=== PATIENT | female | born 1960 | race Caucasian/White ===

== ENCOUNTER 2017-12-30 12:44 | Inpatient (IN) | payer BC ==
[2017-12-30] MEDS ORDERED: NA CHLORIDE 0.9% 1,000 ML ONE (14:22)
[2017-12-30] MEDS ORDERED: ONDANSETRON 4 MG/2 ML VIAL ONE (14:22)
[2017-12-30 14:36] LABS: Absolute Lymphocytes (CBC) 1.1 K/uL (0.7-4.9); Absolute Monocytes 1.3 K/uL (0.1-1.3); Absolute Neutrophil 21.3 K/uL (1.8-8.0); Basophils % 0.1 % (0-1.3); Lymphocytes % 4.8 % (15.3-44.8); MCH 31.4 pg (27.0-35.0); MCV 91.6 fL (80-100); MPV 7.4 fL (7.6-11.3); Monocytes % 5.4 % (3.3-12.3); RBC Red Blood Cell Count 4.15 M/uL (3.86-4.86)
[2017-12-30 14:37] LABS: Potassium 3.3 mEq/L (3.6-5.0)
[2017-12-30 14:43] LABS: Bilirubin Direct 0.2 mg/dL (0-0.2); Bilirubin Total 0.6 mg/dL (0.3-1.2); Protein, Total 7.2 g/dL (6.0-8.3)
[2017-12-30 15:00] LABS: Urine Bacteria >50 /HPF (<20); Urine Culture Reflex Order REFLEXED; Urine RBC 20-50 /HPF (NONE SEEN)
--- NOTE | 2017-12-30 15:32 | RAD REPORT ---
EXAM DESCRIPTION: CTAbdomen Pelvis W Contrast - 12/30/2017 3:10 pm CLINICAL HISTORY: Abdominal pain. COMPARISON: None. TECHNIQUE: Biphasic CT imaging of the abdomen and pelvis was performed with 100 ml non-ionic IV cont rast. All CT scans are performed using dose optimization technique as appropriate and may include automated exposure control or mA/KV adjustment according to patient size. FINDINGS: The lung bases are clear. The liver demonstrates no aggressive mass or biliary dilatation. Small peripherally located benign-ap pearing cysts is noted measuring 8 mm. The spleen, pancreas adrenal glands are normal. Subtle edema i s seen in the inferior posterior aspect of the right kidney suspicious for pyelonephritis. Mild uroep ithelial thickening is seen on the right. Fat stranding is seen surrounding the right ureter and to a lesser extent the left ureter. There is mild thickening of the urinary bladder wall seen. No bowel obstruction, free air, free fluid or abscess. The appendix is normal. No evidence of signi ficant lymphadenopathy. Lumbosacral degenerative changes are present. IMPRESSION: Findings are suspicious for an ascending urinary tract infection with early pyelonephrit is on the right possible.
[2017-12-30 15:39] LABS: Urine Blood 2+ (NEG); Urine Glucose NEGATIVE (NEG); Urine Protein 3+ (NEG); Urine Specific Gravity 1.025 (1.005-1.030)
--- NOTE | 2017-12-30 15:43 | EDPHYS ---
Physician Documentation [facility] Name: Merlyn Fry Age: 57 yrs Sex: Female : 1960 Arrival Date: 12/30/2017 Time: 12:47 Bed 30 Private MD: ED Physician Osito Killian HPI: 12/30 14:35 This 57 yrs old Female presents to ER via Ambulatory with complaints of Low kb Back Pain, Breathing Difficulty. 14:35 The patient complains of pain in the left flank and right flank. The pain radiates to kb the abdomen. Onset: The symptoms/episode began/occurred yesterday. Modifying factors: The symptoms are alleviated by nothing. the symptoms are aggravated by palpation/percussion. Associated signs and symptoms: Pertinent positives: headache, nausea, Pertinent negatives: diarrhea, dizziness, dysuria, fever, urinary frequency, hematuria, pain radiating to the lower extremities, vomiting. Severity of pain: At its worst the pain was moderate in the emergency department the pain is unchanged. The patient has not experienced similar symptoms in the past. The patient has not recently seen a physician. Pt states she started having headache and nausea yesterday, today had lower back pain that radiated to abd. Pain is worse when she takes a deep breath. No chest pain. Historical: - Allergies: 13:12 No Known Allergies; lk1 - PMHx: 13:12 CVA; Hypertension; Myocardial infarction; lk1 - PSHx: 13:12 Heart stents; lk1 - Immunization history:: Adult Immunizations up to date. - Social history:: Smoking status: Patient uses tobacco products, denies chronic smoking, but will smoke occasionally. ROS: 14:34 Constitutional: Negative for fever, chills, and weight loss, ENT: Negative for injury, kb pain, and discharge, Neck: Negative for injury, pain, and swelling, Cardiovascular: Negative for chest pain, palpitations, and edema, MS/Extremity: Negative for injury and deformity, Skin: Negative for injury, rash, and discoloration, Neuro: Negative for headache, weakness, numbness, tingling, and seizure. 14:34 Respiratory: Positive for shortness of breath, due to flank pain. 14:34 Abdomen/GI: Positive for abdominal pain, nausea, Negative for vomiting, diarrhea, constipation, abdominal cramps, abdominal distension, anorexia. 14:34 Back: Positive for flank pain, bilaterally. Exam: 14:33 Constitutional: This is a well developed, well nourished patient who is awake, alert, kb and in no acute distress. Head/Face: Normocephalic, atraumatic. ENT: Nares patent. No nasal discharge, no septal abnormalities noted. Tympanic membranes are normal and external auditory canals are clear. Oropharynx with no redness, swelling, or masses, exudates, or evidence of obstruction, uvula midline. Mucous membranes moist. Neck: Trachea midline, no thyromegaly or masses palpated, and no cervical lymphadenopathy. Supple, full range of motion without nuchal rigidity, or vertebral point tenderness. No Meningismus. Chest/axilla: Normal chest wall appearance and motion. Nontender with no deformity. No lesions are appreciated. Cardiovascular: Regular rate and rhythm with a normal S1 and S2. No gallops, murmurs, or rubs. Normal PMI, no JVD. No pulse deficits. Respiratory: Lungs have equal breath sounds bilaterally, clear to auscultation and percussion. No rales, rhonchi or wheezes noted. No increased work of breathing, no retractions or nasal flaring. Skin: Warm, dry with normal turgor. Normal color with no rashes, no lesions, and no evidence of cellulitis. MS/ Extremity: Pulses equal, no cyanosis. Neurovascular intact. Full, normal range of motion. Neuro: Awake and alert, GCS 15, oriented to person, place, time, and situation. Cranial nerves II-XII grossly intact. Motor strength 5/5 in all extremities. Sensory grossly intact. Cerebellar exam normal. Normal gait. 14:33 Abdomen/GI: Inspection: abdomen appears normal, Bowel sounds: normal, in all quadrants, Palpation: mild abdominal tenderness, in all quadrants. 14:33 Back: CVA tenderness, that is moderate, is noted bilaterally. Vital Signs: 13:12 BP 110 / 76; Pulse 100; Resp 16; Temp 97.0(TE); Pulse Ox 96% on R/A; Weight 62.14 kg lk1 (R); Height 4 ft. 11 in. (149.86 cm) (R); Pain 8/10; 16:35 BP 162 / 128; Pulse 109; Resp 18; Temp 98.7; Pulse Ox 100% on R/A; tl3 16:46 BP 169 / 101; Pulse 118; Resp 22; Pulse Ox 98% ; tl3 13:12 Body Mass Index 27.67 (62.14 kg, 149.86 cm) lk1 MDM: 13:15 Patient medically screened. kb 14:33 Data reviewed: vital signs, nurses notes. Data interpreted: Pulse oximetry: on room air kb is 96 %. Interpretation: normal. 15:39 Counseling: I had a detailed discussion with the patient and/or guardian regarding: the kb historical points, exam findings, and any diagnostic results supporting the discharge/admit diagnosis, lab results, radiology results, the need for further work-up and treatment in the hospital. 12/30 13:31 Order name: Amylase, Serum kb 12/30 13:31 Order name: Basic Metabolic Panel kb 12/30 13:31 Order name: CBC with Diff; Complete Time: 14:39 kb 12/30 13:31 Order name: Hepatic Function kb 12/30 13:31 Order name: Lipase kb 12/30 13:32 Order name: Amylase Level; Complete Time: 14:53 EDMS 12/30 13:32 Order name: Basic Metabolic Panel; Complete Time: 14:53 EDMS 12/30 13:32 Order name: Liver (Hepatic) Function; Complete Time: 14:53 EDMS 12/30 13:32 Order name: Lipase; Complete Time: 14:53 EDMS 12/30 14:22 Order name: Urine Microscopic Only; Complete Time: 15:02 kb 12/30 14:34 Order name: Urine Dipstick--Ancillary (enter results); Complete Time: 15:39 bd 12/30 14:34 Order name: Urine --Ancillary (enter results); Complete Time: 15:39 bd 12/30 15:03 Order name: Urine Culture 12/30 15:04 Order name: Urine Culture EDNC 12/30 13:31 Order name: IV Saline Lock; Complete Time: 14:33 kb 12/30 13:31 Order name: Labs collected and sent; Complete Time: 14:15 kb 12/30 13:31 Order name: Urine Dipstick-Ancillary (obtain specimen); Complete Time: 14:33 kb 12/30 14:38 Order name: CT Abd/Pelvis - W/Contrast; Complete Time: 15:36 kb Administered Medications: 14:32 Drug: Zofran 4 mg Route: IVP; Infused Over: 2 mins; Site: right forearm; tl3 14:53 Follow up: Response: Nausea is decreased tl3 14:33 Drug: NS 0.9% 1000 ml Route: IV; Rate: 1000 ml; Site: right forearm; Delivery: Primary tl3 tubing; 17:47 Follow up: IV Status: Completed infusion; IV Intake: 1000ml tl3 16:35 Drug: Rocephin - (cefTRIAXone) 1 grams Route: IVPB; Infused Over: 5 mins; Site: right tl3 forearm; 17:47 Follow up: Response: No adverse reaction tl3 16:35 Drug: Potassium Chloride 20 mEq Route: PO; tl3 17:46 Follow up: Response: No adverse reaction tl3 Disposition: 18:38 Co-signature as Attending Physician, Osito Killian MD. rn Disposition: 12/30/17 15:42 Hospitalization ordered by Carolynn Steven for Observation. Preliminary diagnosis are Urinary tract infection, site not specified, Acute tubulo-interstitial nephritis, Hypokalemia, Volume depletion, unspecified, Elevated white blood cell count. - Bed requested for Telemetry/MedSurg (observation). - Status is Observation. tl3 - Condition is Stable. - Problem is new. - Symptoms are unchanged. UTI on Admission? Yes Signatures: Dispatcher [employer] EDMS Arina Nava FNP-C FNP-Jillian Tejada Roman, MD MD rn Kluge, Leah, DURAN RN lk1 Ruth Wallace, RN RN tl3 Corrections: (The following items were deleted from the chart) 15:42 15:42 Hospitalization Ordered by Carolynn Steven MD for Observation. Preliminary kb diagnosis is Urinary tract infection, site not specified; Acute tubulo-interstitial nephritis; Hypokalemia; Volume depletion, unspecified. Bed requested for Telemetry/MedSurg (observation). Status is Observation. Condition is Stable. Problem is new. Symptoms are unchanged. UTI on Admission? Yes. kb 16:14 15:42 12/30/2017 15:42 Hospitalization Ordered by Carolynn Steven MD for Observation. bd Preliminary diagnosis is Urinary tract infection, site not specified; Acute tubulo-interstitial nephritis; Hypokalemia; Volume depletion, unspecified; Elevated white blood cell count. Bed requested for Telemetry/MedSurg (observation). Status is Observation. Condition is Stable. Problem is new. Symptoms are unchanged. UTI on Admission? Yes. kb 17:48 16:14 12/30/2017 15:42 Hospitalization Ordered by Carolynn Steven MD for Observation. tl3 Preliminary diagnosis is Urinary tract infection, site not specified; Acute tubulo-interstitial nephritis; Hypokalemia; Volume depletion, unspecified; Elevated white blood cell count. Bed requested for Telemetry/MedSurg (observation). Status is Observation. Condition is Stable. Problem is new. Symptoms are unchanged. UTI on Admission? Yes. bd
--- NOTE | 2017-12-30 15:43 | ER ---
Nurse's Notes [facility] Name: Merlyn Fry Age: 57 yrs Sex: Female : 1960 Arrival Date: 12/30/2017 Time: 12:47 Bed 30 Private MD: Diagnosis: Urinary tract infection, site not specified;Acute tubulo-interstitial nephritis;Hypokalemia;Volume depletion, unspecified;Elevated white blood cell count Presentation: 12/30 13:10 Presenting complaint: Patient states: "I have been having a pain in my sides and lower lk1 back and when I take a breath its worse.". Transition of care: patient was not received from another setting of care. Onset of symptoms was December 26, 2017. Risk Assessment: Do you want to hurt yourself or someone else? Patient reports no desire to harm self or others. Initial Sepsis Screen: Does the patient meet any 2 criteria? No. Patient's initial sepsis screen is negative. Does the patient have a suspected source of infection? No. Patient's initial sepsis screen is negative. Care prior to arrival: None. 13:10 Method Of Arrival: Ambulatory lk1 13:10 Acuity: MAGEN 3 lk1 Triage Assessment: 13:12 General: Appears uncomfortable, Behavior is calm, cooperative, appropriate for age. lk1 Pain: Complains of pain in low back area Pain does not radiate. Pain currently is 8 out of 10 on a pain scale. Respiratory: Reports pain with movement pain with respiration Airway is patent Respiratory effort is even, unlabored, Respiratory pattern is regular, symmetrical, Onset: The symptoms/episode began/occurred 3 days ago, the patient has mild shortness of breath. Historical: - Allergies: 13:12 No Known Allergies; lk1 - PMHx: 13:12 CVA; Hypertension; Myocardial infarction; lk1 - PSHx: 13:12 Heart stents; lk1 - Immunization history:: Adult Immunizations up to date. - Social history:: Smoking status: Patient uses tobacco products, denies chronic smoking, but will smoke occasionally. Screenin:15 Abuse screen: Denies threats or abuse. Nutritional screening: No deficits noted. tl3 Tuberculosis screening: No symptoms or risk factors identified. Fall Risk None identified. Assessment: 14:15 General: Appears uncomfortable, slender, well groomed, well developed, well nourished, tl3 Behavior is calm, cooperative, appropriate for age. Pain: Complains of pain in abdomen and right flank and left flank and back and low back area. Cardiovascular: Heart tones S1 S2 present Rhythm is regular. Respiratory: Airway is patent Trachea midline Respiratory effort is even, unlabored, Respiratory pattern is regular, symmetrical, Breath sounds are clear bilaterally. GI: No signs and/or symptoms were reported involving the gastrointestinal system. : Urine is cloudy. EENT: No signs and/or symptoms were reported regarding the EENT system. Derm: No signs and/or symptoms reported regarding the dermatologic system. Musculoskeletal: No signs and/or symptoms reported regarding the musculoskeletal system. 16:35 Reassessment: Patient and/or family updated on plan of care and expected duration. Pain tl3 level reassessed. Patient is alert, oriented x 3, equal unlabored respirations, skin warm/dry/pink. pt quivering, extra blanket provided, IV infusing without difficulty. 16:46 Reassessment: Patient and/or family updated on plan of care and expected duration. Pain tl3 level reassessed. Patient is alert, oriented x 3, equal unlabored respirations, skin warm/dry/pink. pt c/o feeling like she can not breathe, pulse ox 100% on room air, BBS slightly coarse, no wheezing, good sounds throughout all ortiz. Vital Signs: 13:12 BP 110 / 76; Pulse 100; Resp 16; Temp 97.0(TE); Pulse Ox 96% on R/A; Weight 62.14 kg lk1 (R); Height 4 ft. 11 in. (149.86 cm) (R); Pain 8/10; 16:35 BP 162 / 128; Pulse 109; Resp 18; Temp 98.7; Pulse Ox 100% on R/A; tl3 16:46 BP 169 / 101; Pulse 118; Resp 22; Pulse Ox 98% ; tl3 13:12 Body Mass Index 27.67 (62.14 kg, 149.86 cm) lk1 ED Course: 12:47 Patient arrived in ED. rg4 13:11 Triage completed. lk1 13:14 Arm band placed on left wrist. lk1 13:15 Arina Nava FNP-C is [facility]. kb 13:15 Osito Killian MD is Attending Physician. kb 13:58 Ruth Wallace, RN is Primary Nurse. tl3 14:15 No apparent distress. Resting quietly. tl3 14:15 Patient has correct armband on for positive identification. Bed in low position. Call tl3 light in reach. Side rails up X 1. Adult w/ patient. Pulse ox on. NIBP on. Door closed. Lights dimmed. Warm blanket given. 14:15 No provider procedures requiring assistance completed. Inserted saline lock: 20 gauge tl3 in right antecubital area, using aseptic technique. Blood collected. 15:[address] via wheelchair. nj 15:10 CT Abd/Pelvis - W/Contrast In Process Unspecified. EDMS 15:42 Carolynn Steven MD is Hospitalizing Provider. kb 17:27 Inserted saline lock: 22 gauge in left antecubital area, using aseptic technique. dh3 17:46 Patient admitted, IV remains in place. tl3 18:48 Amylase, Serum Sent. tl3 18:48 Basic Metabolic Panel Sent. tl3 18:48 Hepatic Function Sent. tl3 18:48 Lipase Sent. tl3 Administered Medications: 14:32 Drug: Zofran 4 mg Route: IVP; Infused Over: 2 mins; Site: right forearm; tl3 14:53 Follow up: Response: Nausea is decreased tl3 14:33 Drug: NS 0.9% 1000 ml Route: IV; Rate: 1000 ml; Site: right forearm; Delivery: Primary tl3 tubing; 17:47 Follow up: IV Status: Completed infusion; IV Intake: 1000ml tl3 16:35 Drug: Rocephin - (cefTRIAXone) 1 grams Route: IVPB; Infused Over: 5 mins; Site: right tl3 forearm; 17:47 Follow up: Response: No adverse reaction tl3 16:35 Drug: Potassium Chloride 20 mEq Route: PO; tl3 17:46 Follow up: Response: No adverse reaction tl3 Intake: 17:47 IV: 1000ml; Total: 1000ml. tl3 Outcome: 15:42 Decision to Hospitalize by Provider. kb 17:45 Admitted to Tele accompanied by tech, via wheelchair, with chart, Report called to tl3 DURAN Roche 17:45 Condition: stable 17:45 Instructed on the need for admit, Demonstrated understanding of instructions. 17:48 Patient left the ED. tl3 Signatures: Dispatcher [employer] EDMS Arina Nava, DASHBOARD DEVELOPER-C DASHBOARD DEVELOPER-CkDarlene Munoz, RN RN lk1 Ruth Davis4 Hector Yeung Deanna 3 Ruth Wallace, RN RN tl3
[2017-12-30] MEDS ORDERED: POTASSIUM CL SA 10 MEQ TAB PO ONE (16:21)
[2017-12-30] MEDS ORDERED: CEFTRIAXONE/SWI 1gm 1 GM/10 ML SYR ONE (16:22)
--- NOTE | 2017-12-30 16:29 | P.HP ---
Certification for Inpatient Patient admitted to: Observation With expected LOS: <2 Midnights Practitioner: I am a practitioner with admitting privileges, knowledge of patient current condition, hospital course, and medical plan of care. Services: Services provided to patient in accordance with Admission requirements found in Title 42 Section 412.3 of the Code of Federal Regulations Patient History Date of Service: 12/30/17 Primary Care Provider: None Reason for admission: BL flank pain History of Present Illness: This is a 49-year-old female with significant past medical history of hypertension, CVA, IA, who presented to the ED complaining of having bilateral flank pain. Patient states that she has been having pain in her side and lower back when she takes a deep breath in. Patient's symptoms started about 3-4 days ago and has not gotten better since then. Patient stated that she has had subjective fevers and chills noted as well. No other complaints to offer at this time. Patient stated that she has not had similar episodes in the past and this is the 1st time that this has happened. Patient complains of having some urinary in frequency and burning during urination as well. In the ER patient had an abdominal CT done which was consistent with pyelonephritis along with severe ascending urinary tract infection. Patient was thus admitted for further care for pyelonephritis. Allergies No Known Allergies Allergy (Unverified 06/22/17 03:06) - Past Medical/Surgical History Diabetic: No -: Hypertension -: Coronary artery disease -: CVA -: depression -: anxiety -: hypercholesterolemia -: Cardiac catheterization with stent placement -: hysterectomy - Family History Father -: Heart disease, Hypertension, Diabetes, Cancer Sister -: Lung disease - Social History Alcohol use: No CD- Drugs: No Caffeine use: Yes Review of Systems General: As per HPI Physical Examination - Physical Exam General: Alert, In no apparent distress HEENT: Atraumatic Neck: Supple Respiratory: Clear to auscultation bilaterally, Normal air movement Cardiovascular: Regular rate/rhythm, Normal S1 S2 Gastrointestinal: Normal bowel sounds, Tenderness (BL Flank pain. ) Musculoskeletal: Tenderness Integumentary: No rashes Neurological: Normal speech, Normal strength at 5/5 x4 extr, Normal tone Lymphatics: No axilla or inguinal lymphadenopathy - Studies Laboratory Data (last 24 hrs) 12/30/17 14:05: WBC 23.8 H*, Hgb 13.0, Hct 38.0, Plt Count 372 12/30/17 14:05: Sodium 132 L, Potassium 3.3 L, BUN 9, Creatinine 0.80, Glucose 121 H, Total Bilirubin 0.6, AST 17, ALT 15, Alkaline Phosphatase 100, Amylase 65 , Lipase 14 L Assessment and Plan - Problems (Diagnosis) (1) Sepsis Current Visit: Yes Status: Acute Plan: Sepsis 2.2 to UTI. -urine Culture pending. -IV rocephin started -IV fluids -Awaiting culture -repeat Lab in AM Qualifiers: Sepsis type: sepsis due to unspecified organism Qualified Code(s): A41.9 - Sepsis, unspecified organism (2) Pyelonephritis Current Visit: Yes Status: Acute Plan: See # 1 (3) HTN (hypertension) Current Visit: Yes Status: Acute Plan: Restart Home medication Qualifiers: Hypertension type: essential hypertension Qualified Code(s): I10 - Essential (primary) hypertension (4) CVA (cerebral vascular accident) Current Visit: No Status: Acute Plan: History of CVA in the past. Qualifiers: CVA mechanism: unspecified Qualified Code(s): I63.9 - Cerebral infarction, unspecified Discharge Plan: Home Plan to discharge in: 48 Hours - Advance Directives Does patient have a Living Will: No Does patient have a Durable POA for Healthcare: No - Code Status/Comfort Care Code Status Assessed: Yes Critical Care: No
[2017-12-30] MEDS ORDERED: CEFTRIAXONE/SWI 1gm 1 GM/10 ML SYR IV SCH (17:00)
[2017-12-30] MEDS: ONDANSETRON 4 MG/2 ML VIAL IV PRN (18:58)
[2017-12-30] MEDS: NA CHLORIDE 0.9% 1,000 ML IV SCH (18:58)
[2017-12-30 19:25] VITALS: BMI 27.6
[2017-12-30 20:42] LABS: Magnesium 1.6 mg/dL (1.8-2.5)
[2017-12-30 20:49] LABS: Potassium 2.9 mEq/L (3.6-5.0)
[2017-12-30] MEDS: ACETAMINOPHEN 500 MG TAB PO PRN (21:32)
[2017-12-30] MEDS: TEMAZEPAM 15 MG CAP PO PRN (21:33)
[2017-12-31] MEDS ORDERED: ZOLPIDEM TARTRATE 10 MG TABLET PO ONE (00:08)
[2017-12-31] MEDS ORDERED: MAGNESIUM SULFATE 1 gm IVPB 1 GM/100 ML BAG IV ONE (00:15)
[2017-12-31] MEDS: NA CHLORIDE 0.9% 1,000 ML IV SCH ×3 (00:39→18:02)
[2017-12-31] MEDS: KCL 20 MEQ/100 mL IVPB 20 MEQ/100 ML BAG IV SCH ×3 (00:39→06:34)
[2017-12-31 04:10] LABS: Absolute Lymphocytes (CBC) 1.3 K/uL (0.7-4.9); Absolute Monocytes 1.8 K/uL (0.1-1.3); Absolute Neutrophil 27.1 K/uL (1.8-8.0); Basophils % 0.1 % (0-1.3); Hematocrit 33.8 % (36.0-45.0); Lymphocytes % 4.2 % (15.3-44.8); MCH 31.1 pg (27.0-35.0); MCV 92.8 fL (80-100); MPV 7.7 fL (7.6-11.3); Monocytes % 5.8 % (3.3-12.3); RBC Red Blood Cell Count 3.65 M/uL (3.86-4.86)
[2017-12-31 04:53] LABS: Blood Morphology Comment NOT SEEN (NOT SEEN); Platelet Estimate ADEQ
[2017-12-31 04:55] LABS: Albumin 2.9 g/dL (3.2-5.5); Bilirubin Total 0.5 mg/dL (0.3-1.2); Potassium 3.8 mEq/L (3.6-5.0); Protein, Total 5.9 g/dL (6.0-8.3)
[2017-12-31] MEDS: CLOPIDOGREL 75 MG TABLET PO SCH (08:29)
[2017-12-31] MEDS: ACETAMINOPHEN 500 MG TAB PO PRN ×3 (08:31→21:50)
[2017-12-31] MEDS ORDERED: METOPROLOL XL 25 MG TAB PO SCH (09:00)
[2017-12-31] MEDS ORDERED: CEFTRIAXONE 1 GM/NS 50 ML 1 GM/50 ML BAG IV SCH (09:00)
[2017-12-31] MEDS: PIPER/TAZO/NS 3.375gm 3.375 GM/100 ML BAG IVPB SCH ×2 (09:27→17:54)
[2017-12-31] MEDS ORDERED: VANCOMYCIN 1.25 GM in NA CHLORIDE 0.9% 250 ML IVPB SCH (10:00)
[2017-12-31 11:18] LABS: Magnesium 2.2 mg/dL (1.8-2.5); Potassium 4.6 mEq/L (3.6-5.0)
--- NOTE | 2017-12-31 13:05 | P.PN ---
Subjective Date of Service: 12/31/17 Primary Care Provider: None Chief Complaint: BL flank pain Pt seen and examined at bedside. No complains to offer overnight. This Morning however, pt states she feels weak and feels like she is getting worse. Pt has been hypotensive. WBC elevated this AM as well. Review of Systems General: As per HPI Physical Examination - Vital Signs Temperature: 98.1 F Blood Pressure: 90/60 Pulse: 88 Respirations: 16 Pulse Ox (%): 96 - Physical Exam General: Alert, Oriented x3, Mild distress HEENT: Atraumatic Neck: Supple, JVD not distended Respiratory: Clear to auscultation bilaterally, Normal air movement Cardiovascular: Regular rate/rhythm, Normal S1 S2 Gastrointestinal: Normal bowel sounds, Soft and benign, Non-distended, Tenderness (CVA + BL ) Integumentary: No rashes Neurological: Normal speech, Normal tone, Normal affect Lymphatics: No axilla or inguinal lymphadenopathy - Studies Laboratory Data (last 24 hrs) 12/31/17 03:42: Sodium 134 L, Potassium 3.8, BUN 11, Creatinine 0.99, Glucose 122 H, Total Bilirubin 0.5, AST 19, ALT 13, Alkaline Phosphatase 82 12/31/17 03:42: WBC 30.2 H* D, Hgb 11.3 L, Hct 33.8 L, Plt Count 300 12/30/17 20:23: Potassium 2.9 L*, Magnesium 1.6 L 12/30/17 14:05: WBC 23.8 H*, Hgb 13.0, Hct 38.0, Plt Count 372 12/30/17 14:05: Sodium 132 L, Potassium 3.3 L, BUN 9, Creatinine 0.80, Glucose 121 H, Total Bilirubin 0.6, AST 17, ALT 15, Alkaline Phosphatase 100, Amylase 65 , Lipase 14 L Medications List Reviewed: Yes Assessment & Plan - Problems (Diagnosis) (1) Sepsis Onset Date: 12/31/17 Current Visit: Yes Status: Acute Plan: Sepsis 2.2 to UTI. -urine Culture + for Gram - rods for now -Changed ABX to Vanc and zosyn in lieu of elevated WBC -IV fluids for now -repeat Lab in AM Qualifiers: Sepsis type: sepsis due to unspecified organism Qualified Code(s): A41.9 - Sepsis, unspecified organism (2) Pyelonephritis Onset Date: 12/31/17 Current Visit: Yes Status: Acute Plan: See # 1 (3) HTN (hypertension) Onset Date: 12/31/17 Current Visit: Yes Status: Acute Plan: Restart Home medication Qualifiers: Hypertension type: essential hypertension Qualified Code(s): I10 - Essential (primary) hypertension (4) CVA (cerebral vascular accident) Onset Date: 12/31/17 Current Visit: Yes Status: Acute Plan: History of CVA in the past. Qualifiers: CVA mechanism: unspecified Qualified Code(s): I63.9 - Cerebral infarction, unspecified Discharge Plan: Home Plan to discharge in: 24 Hours - Code Status/Comfort Care Code Status Assessed: Yes Critical Care: No
[2017-12-31] MEDS: ZOLPIDEM TARTRATE 5 MG TABLET PO PRN (21:32)
[2017-12-31] MEDS: ONDANSETRON 4 MG/2 ML VIAL IV PRN (21:32)
[2018-01-01] MEDS: TEMAZEPAM 15 MG CAP PO PRN ×2 (00:42→21:36)
[2018-01-01] MEDS: PIPER/TAZO/NS 3.375gm 3.375 GM/100 ML BAG IVPB SCH (00:44)
[2018-01-01 04:44] LABS: Absolute Lymphocytes (CBC) 0.9 K/uL (0.7-4.9); Absolute Neutrophil 15.7 K/uL (1.8-8.0); Basophils % 0.4 % (0-1.3); Eosinophils % 0.8 % (0-4.4); Hematocrit 32.8 % (36.0-45.0); Lymphocytes % 5.2 % (15.3-44.8); MCH 31.6 pg (27.0-35.0); MCV 92.9 fL (80-100); Monocytes % 5.4 % (3.3-12.3); RBC Red Blood Cell Count 3.53 M/uL (3.86-4.86)
[2018-01-01 05:04] LABS: ALT/SGPT 17 IU/L (10-60); AST/SGOT 21 IU/L (10-42); Albumin 2.9 g/dL (3.2-5.5); Alkaline Phosphatase 107 IU/L (42-121); BUN Blood Urea Nitrogen 7 mg/dL (6-20); Bicarbonate 20 mEq/L (21-31); Bilirubin Total 0.8 mg/dL (0.3-1.2); Glucose Level 110 mg/dL (65-120); Potassium 3.6 mEq/L (3.6-5.0); Sodium Level 135 mEq/L (135-145)
[2018-01-01] MEDS: NA CHLORIDE 0.9% 1,000 ML IV SCH ×4 (05:46→21:38)
[2018-01-01] MEDS: ACETAMINOPHEN 500 MG TAB PO PRN ×3 (05:47→21:35)
[2018-01-01] MEDS ORDERED: LOSARTAN POTASSIUM 50 MG TABLET PO SCH (09:00)
[2018-01-01] MEDS ORDERED: POTASSIUM CL SA 10 MEQ TAB PO ONE (09:00)
[2018-01-01] MEDS: HOME MED 1 EA UNK (Mirabegron [Myrbetriq] 50 MG) PO SCH (09:00)
[2018-01-01] MEDS ORDERED: Meropenem 1000 MG/VIAL IV SCH (09:00)
[2018-01-01] MEDS: CLOPIDOGREL 75 MG TABLET PO SCH (10:18)
[2018-01-01] MEDS: Meropenem 1,000 MG in NA CHLORIDE 0.9% 100 ML IV SCH ×2 (11:23→17:54)
--- NOTE | 2018-01-01 12:04 | P.PN ---
Subjective Date of Service: 01/01/18 Primary Care Provider: None Chief Complaint: BL flank pain Pt seen and examined at bedside. No complains to offer overnight. States she feels much better today. Has been ambulating with RN. Review of Systems General: As per HPI Physical Examination - Vital Signs Temperature: 97.6 F Blood Pressure: 131/81 Pulse: 89 Respirations: 18 Pulse Ox (%): 95 - Physical Exam General: Alert, In no apparent distress HEENT: Atraumatic, PERRLA, EOMI Neck: Supple, JVD not distended Respiratory: Clear to auscultation bilaterally, Normal air movement Cardiovascular: Regular rate/rhythm, Normal S1 S2 Gastrointestinal: Normal bowel sounds, No tenderness Musculoskeletal: No tenderness Integumentary: No rashes Neurological: Normal speech, Normal tone, Normal affect Lymphatics: No axilla or inguinal lymphadenopathy - Studies Microbiology Data (last 24 hrs): 12/30/17 14:05 Clean Catch Urine [place] Count - Final >100,000 CFU/ML. 12/30/17 14:05 Clean Catch Urine - Final Escherichia Coli Medications List Reviewed: Yes Assessment & Plan - Problems (Diagnosis) (1) Sepsis Onset Date: 12/31/17 Current Visit: Yes Status: Acute Plan: Sepsis 2.2 to UTI. -urine Culture + for ESBL -Changed ABX to meropenum -IV fluids for now -repeat Lab in AM Qualifiers: Sepsis type: Escherichia coli Qualified Code(s): A41.51 - Sepsis due to Escherichia coli [E. coli] (2) Pyelonephritis Onset Date: 12/31/17 Current Visit: Yes Status: Acute Plan: See # 1 (3) HTN (hypertension) Onset Date: 12/31/17 Current Visit: Yes Status: Acute Plan: Restart Home medication Qualifiers: Hypertension type: essential hypertension Qualified Code(s): I10 - Essential (primary) hypertension (4) CVA (cerebral vascular accident) Onset Date: 12/31/17 Current Visit: Yes Status: Acute Plan: History of CVA in the past. Qualifiers: CVA mechanism: unspecified Qualified Code(s): I63.9 - Cerebral infarction, unspecified Discharge Plan: Home Plan to discharge in: 24 Hours - Code Status/Comfort Care Code Status Assessed: Yes Critical Care: No
[2018-01-01] MEDS ORDERED: TRAMADOL HCL 50 MG TAB PO ONE (16:19)
[2018-01-01] MEDS: ONDANSETRON 4 MG/2 ML VIAL IV PRN (17:31)
[2018-01-01] MEDS: ENOXAPARIN 40 MG/0.4 ML SQ SCH (17:54)
--- NOTE | 2018-01-01 19:17 | RAD REPORT ---
EXAM DESCRIPTION: RAD - Chest Single View - 01/01/2018 6:08 pm CLINICAL HISTORY: PICC line placement COMPARISON: None. FINDINGS: Portable chest was obtained following placement of a right upper extremity PICC line. The catheter tip is in the SVC atrial junction.
[2018-01-01] MEDS: ZOLPIDEM TARTRATE 5 MG TABLET PO PRN (21:36)
[2018-01-02] MEDS: Meropenem 1,000 MG in NA CHLORIDE 0.9% 100 ML IV SCH ×3 (01:18→17:35)
[2018-01-02] MEDS: NA CHLORIDE 0.9% 1,000 ML IV SCH ×3 (04:00→21:28)
[2018-01-02 05:52] LABS: Absolute Lymphocytes (CBC) 1.6 K/uL (0.7-4.9); Absolute Neutrophil 8.3 K/uL (1.8-8.0); Basophils % 0.6 % (0-1.3); Eosinophils % 0.5 % (0-4.4); Hematocrit 34.6 % (36.0-45.0); Lymphocytes % 14.3 % (15.3-44.8); MCH 31.7 pg (27.0-35.0); MCV 90.5 fL (80-100); MPV 7.7 fL (7.6-11.3); Monocytes % 9.5 % (3.3-12.3); RBC Red Blood Cell Count 3.82 M/uL (3.86-4.86)
[2018-01-02 06:03] LABS: Albumin 3.2 g/dL (3.2-5.5); Bilirubin Total 0.5 mg/dL (0.3-1.2); Potassium 3.5 mEq/L (3.6-5.0); Protein, Total 6.6 g/dL (6.0-8.3)
[2018-01-02] MEDS: HOME MED 1 EA UNK (Mirabegron [Myrbetriq] 50 MG) PO SCH (09:00)
[2018-01-02] MEDS ORDERED: POTASSIUM CL SA 10 MEQ TAB PO ONE (09:00)
[2018-01-02] MEDS: ENOXAPARIN 40 MG/0.4 ML SQ SCH (09:20)
[2018-01-02] MEDS: CLOPIDOGREL 75 MG TABLET PO SCH (09:21)
[2018-01-02] MEDS: ACETAMINOPHEN 500 MG TAB PO PRN ×2 (09:21→17:33)
[2018-01-02] MEDS: LOSARTAN POTASSIUM 50 MG TABLET PO SCH (09:21)
[2018-01-02] MEDS: METOPROLOL XL 25 MG TAB PO SCH (09:21)
[2018-01-02] MEDS: ONDANSETRON 4 MG/2 ML VIAL IV PRN ×3 (09:22→23:48)
--- NOTE | 2018-01-02 12:36 | P.PN ---
Subjective Date of Service: 01/02/18 Primary Care Provider: None Chief Complaint: BL flank pain Pt seen and examined at bedside. No complains to offer overnight. States she feels much better today. Has been ambulating with RN. Review of Systems General: As per HPI Physical Examination - Vital Signs Temperature: 98.3 F Blood Pressure: 177/100 Pulse: 93 Respirations: 18 Pulse Ox (%): 95 - Physical Exam General: Alert, In no apparent distress HEENT: Atraumatic, PERRLA, EOMI Neck: Supple, JVD not distended Respiratory: Clear to auscultation bilaterally, Normal air movement Cardiovascular: Regular rate/rhythm, Normal S1 S2 Gastrointestinal: Normal bowel sounds, No tenderness Musculoskeletal: No tenderness Integumentary: No rashes Neurological: Normal speech, Normal tone, Normal affect Lymphatics: No axilla or inguinal lymphadenopathy - Studies Microbiology Data (last 24 hrs): 12/30/17 14:05 Clean Catch Urine [place] Count - Final >100,000 CFU/ML. 12/30/17 14:05 Clean Catch Urine - Final Escherichia Coli Medications List Reviewed: Yes Assessment & Plan - Problems (Diagnosis) (1) Sepsis Onset Date: 12/31/17 Current Visit: Yes Status: Acute Plan: Sepsis 2.2 to UTI. -urine Culture + for ESBL -Changed ABX to meropenum 09/25 -IV fluids for now -repeat Lab in AM -Pending placement to [facility] Qualifiers: Sepsis type: Escherichia coli Qualified Code(s): A41.51 - Sepsis due to Escherichia coli [E. coli] (2) Pyelonephritis Onset Date: 12/31/17 Current Visit: Yes Status: Acute Plan: See # 1 (3) HTN (hypertension) Onset Date: 12/31/17 Current Visit: Yes Status: Acute Plan: Restart Home medication Qualifiers: Hypertension type: essential hypertension Qualified Code(s): I10 - Essential (primary) hypertension (4) CVA (cerebral vascular accident) Onset Date: 12/31/17 Current Visit: Yes Status: Acute Plan: History of CVA in the past. Qualifiers: CVA mechanism: unspecified Qualified Code(s): I63.9 - Cerebral infarction, unspecified Discharge Plan: Other (SNF to [facility] for IV meropenum) Plan to discharge in: 24 Hours - Code Status/Comfort Care Code Status Assessed: Yes Critical Care: No
--- NOTE | 2018-01-02 13:41 | P.DS ---
Admission Date: 12/31/17 Discharge Date: 01/02/18 Primary Care Provider: None Disposition: TRANSFER TO SNF - MEDICAL Discharge Condition: GOOD Reason for Admission: BL flank pain Consultations: None - Problems (1) Sepsis Onset Date: 12/31/17 Current Visit: Yes Status: Acute Qualifiers: Sepsis type: Escherichia coli Qualified Code(s): A41.51 - Sepsis due to Escherichia coli [E. coli] (2) Pyelonephritis Onset Date: 12/31/17 Current Visit: Yes Status: Acute (3) HTN (hypertension) Onset Date: 12/31/17 Current Visit: Yes Status: Acute Qualifiers: Hypertension type: essential hypertension Qualified Code(s): I10 - Essential (primary) hypertension (4) CVA (cerebral vascular accident) Onset Date: 12/31/17 Current Visit: Yes Status: Acute Qualifiers: CVA mechanism: unspecified Qualified Code(s): I63.9 - Cerebral infarction, unspecified Brief History of Present Illness: This is a 49-year-old female with significant past medical history of hypertension, CVA, [place], who presented to the ED complaining of having bilateral flank pain. Patient states that she has been having pain in her side and lower back when she takes a deep breath in. Patient's symptoms started about 3-4 days ago and has not gotten better since then. Patient stated that she has had subjective fevers and chills noted as well. No other complaints to offer at this time. Patient stated that she has not had similar episodes in the past and this is the 1st time that this has happened. Patient complains of having some urinary in frequency and burning during urination as well. In the ER patient had an abdominal CT done which was consistent with pyelonephritis along with severe ascending urinary tract infection. Patient was thus admitted for further care for pyelonephritis. Hospital Course: Overall during the hospital stay patient remained stable The patient was initially admitted to the hospital for pyelonephritis most likely secondary to urinary tract infection most likely secondary to E. coli that was resistant to calm medication except meropenem. Patient initially was septic and had high heart rate and low blood pressure. Received 3 L of fluid here in the hospital and had marked improvement in her symptoms. Was initially started on IV vanc and Zosyn and then was switched over to meropenem once the sensitivities were back. Patient then was referred to with [facility] for further care for IV antibiotics for total of 14 days. Patient was then accepted at [facility] and transferred there for her urinary tract infection. Patient was asked to follow up with her primary care provider post discharge. Patient will be getting IV meropenem 1 g q.8 hr daily for total of 14 days Vital Signs/Physical Exam: Temp Pulse Resp BP Pulse Ox 98.3 F 93 H 18 177/100 H 95 01/02/18 12:36 01/02/18 12:36 01/02/18 12:36 01/02/18 12:36 01/02/18 12:36 General: Alert, In no apparent distress HEENT: Atraumatic, PERRLA, EOMI Neck: Supple, JVD not distended Respiratory: Clear to auscultation bilaterally, Normal air movement Cardiovascular: Regular rate/rhythm, Normal S1 S2 Gastrointestinal: Normal bowel sounds, No tenderness Musculoskeletal: No tenderness Integumentary: No rashes Neurological: Normal speech, Normal tone, Normal affect Lymphatics: No axilla or inguinal lymphadenopathy Laboratory Data at Discharge: WBC 11.0 K/uL (4.3-10.9) H D 01/02/18 05:30 Hgb 12.1 g/dL (12.0-15.0) 01/02/18 05:30 Hct 34.6 % (36.0-45.0) L 01/02/18 05:30 Plt Count 262 K/uL (152-406) 01/02/18 05:30 Sodium 136 mEq/L (135-145) 01/02/18 05:30 Potassium 3.5 mEq/L (3.6-5.0) L 01/02/18 05:30 BUN 8 mg/dL (6-20) 01/02/18 05:30 Creatinine 0.68 mg/dL (0.44-1.00) 01/02/18 05:30 Glucose 103 mg/dL (65-120) 01/02/18 05:30 Magnesium 2.2 mg/dL (1.8-2.5) D 12/31/17 10:12 Total Bilirubin 0.5 mg/dL (0.3-1.2) 01/02/18 05:30 AST 34 IU/L (10-42) 01/02/18 05:30 ALT 29 IU/L (10-60) 01/02/18 05:30 Alkaline Phosphatase 131 IU/L (42-121) H 01/02/18 05:30 Amylase 65 U/L (28-100) 12/30/17 14:05 Lipase 14 U/L (22-51) L 12/30/17 14:05 Home Medications: Clopidogrel Bisulfate [Plavix*] 75 mg PO DAILY 12/30/17 Diazepam 10 mg PO TID 12/30/17 Lamotrigine [Lamictal*] 100 mg PO DAILY 12/30/17 Losartan Potassium [Cozaar] 100 mg PO DAILY 12/30/17 Metoprolol Succinate 25 mg PO DAILY 12/30/17 Mirabegron [Myrbetriq] 50 mg PO DAILY 12/30/17 Oxcarbazepine [Trileptal] 300 mg PO DAILY 12/30/17 Oxcarbazepine [Trileptal] 600 mg PO BEDTIME 12/30/17 Promethazine HCl 12.5 mg PO DAILYPRN PRN 12/30/17 Meropenem [Merrem*] 1 gm IV Q8H #14 vial 01/02/18 New Medications: Meropenem [Merrem*] 1 gm IV Q8H #14 vial Patient Discharge Instructions: Please f/u with PCP in 1 to 2 days post discharge. You are going to be discharged to [facility] for 14days of IV abs for your UTI Diet: Regular Activity: Ad naveen
[2018-01-02] MEDS: HYDROCODONE/APAP 10/325 TAB PO PRN (21:26)
[2018-01-02] MEDS: TEMAZEPAM 15 MG CAP PO PRN (23:49)
[2018-01-02] MEDS: ZOLPIDEM TARTRATE 5 MG TABLET PO PRN (23:49)
[2018-01-03 01:41] VITALS: O2SAT 96
[2018-01-03] MEDS: Meropenem 1,000 MG in NA CHLORIDE 0.9% 100 ML IV SCH ×2 (01:48→09:03)
[2018-01-03] MEDS: HYDROCODONE/APAP 10/325 TAB PO PRN ×2 (03:46→09:14)
[2018-01-03] MEDS: NA CHLORIDE 0.9% 1,000 ML IV SCH ×3 (07:14→10:00)
[2018-01-03 08:04] LABS: BUN Blood Urea Nitrogen 7 mg/dL (6-20); Bicarbonate 22 mEq/L (21-31); Glucose Level 100 mg/dL (65-120); Phosphorus 2.6 mg/dL (2.5-4.3); Potassium 3.4 mEq/L (3.6-5.0); Sodium Level 138 mEq/L (135-145)
[2018-01-03] MEDS: HOME MED 1 EA UNK (Mirabegron [Myrbetriq] 50 MG) PO SCH (09:00)
[2018-01-03] MEDS: ONDANSETRON 4 MG/2 ML VIAL IV PRN (09:00)
[2018-01-03] MEDS ORDERED: POTASSIUM CL SA 10 MEQ TAB PO ONE (09:00)
[2018-01-03] MEDS: CLOPIDOGREL 75 MG TABLET PO SCH (09:00)
[2018-01-03] MEDS: ENOXAPARIN 40 MG/0.4 ML SQ SCH (09:01)
[2018-01-03] MEDS: METOPROLOL XL 25 MG TAB PO SCH (09:01)
[2018-01-03] MEDS: LOSARTAN POTASSIUM 50 MG TABLET PO SCH (09:01)
[2018-01-03 11:44] VITALS: BP 144/71; TEMP 97
== END 2018-01-03 13:31 | DRG 872 ==
LOC: ER 12:44 → ERHOLD 15:44 → 4TH 17:17 → OBSVTOIN 12-31 09:20
PROVIDERS: ADMIT Family Medicine; ATTEND Family Medicine
PROC: 02HV33Z Insertion of Infusion Device into Superior Vena Cava, Percutaneous Approach (ICD-10-PCS; principal; 2018-01-01)
DX: A41.51 Sepsis due to Escherichia coli [E. coli] (principal); N10 Acute pyelonephritis; I10 Essential (primary) hypertension; I25.10 Atherosclerotic heart disease of native coronary artery without angina pectoris; F41.8 Other specified anxiety disorders; I25.2 Old myocardial infarction; Z86.73 Personal history of transient ischemic attack (TIA), and cerebral infarction without residual deficits
CPT/HCPCS: 36415; 71045; 74177; 80048; 80053; 80076; 80202; 81003; 81015; 81025; 82150; 83605; 83690; 83735; 84100; 84132; 85025; 87040; 87077; 87086; 87088; 87186; 96361; 96374; 96375; 99285; G0378; J0696; J1650; J2405; J2543; J3475; J7030; Q9967

== ENCOUNTER 2019-03-09 11:58 | Emergency (ER) | payer BC ==
[2019-03-09] MEDS ORDERED: HYDROCODONE/APAP 7.5/325 MG TAB ONE (13:43)
[2019-03-09] MEDS ORDERED: KETOROLAC 30 MG/ML INJ ONE (13:43)
[2019-03-09] MEDS ORDERED: DIAZEPAM 5 MG TABLET ONE (13:43)
[2019-03-09] MEDS ORDERED: dexAMETHasone 10 MG/ML VIAL ONE (13:43)
--- NOTE | 2019-03-09 14:02 | RAD REPORT ---
EXAM DESCRIPTION: CT - Spine Lumbar Wo Con - 03/09/2019 1:32 pm CLINICAL HISTORY: Fall, back pain, right lower extremity radiculopathy COMPARISON: None. TECHNIQUE: Thin section axial imaging of the lumbar spine was performed. Sagittal and coronal recon struction images were generated and reviewed. All CT scans are performed using dose optimization technique as appropriate and may include automated exposure control or mA/KV adjustment according to patient size. FINDINGS: Lumbar bodies are normal in height and alignment. No compression fracture. No lytic, scler otic or expansile bony destructive process. Patient is status post fusion L5-S1. Hardware is well pos itioned with no fracture of the hardware. Patient has prominent degenerative changes to the L5-S1 fac et joints. Fusion material is in the disc space. No specific finding to elevate likelihood of disciti s or osteomyelitis. Postsurgical changes are present to the posterior elements at this level. Central canal detail is inherently limited. No gross evidence for herniation or significant disc bulg e. No significant canal approach min process seen. Evaluation at L5-S1 is further limited by the subs tantial spray artifact of the metal hardware. No paraspinal mass or hematoma. Prominent L5-S1 facet joint degenerative changes are present. Degenerative change is present but less prominent L4-5. No pars defects. IMPRESSION: No fracture or acute lumbar vertebral body finding. Fusion changes at L5-S1 present with no acute findings seen. Central canal detail is inherently limited on CT imaging; however, no herniation, disc bulge or signi ficant central canal finding seen.
--- NOTE | 2019-03-09 14:13 | ER ---
Nurse's Notes [facility] Name: Merlyn Fry Age: 59 yrs Sex: Female : 1960 Arrival Date: 03/09/2019 Time: 12:03 Bed 16 Private MD: out of town, doctor Diagnosis: Low back pain;Sciatica, right side Presentation: 03/09 12:13 Presenting complaint: Patient states: Pain to right hip since fall 2 days ago. Patient aj reports pain shoots down leg and makes it difficult for her to walk. Care prior to arrival: None. Mechanism of Injury: Fall from standing position. Trauma event details: Injury occurred in the [facility], Injury occurred: at home. Injury occurred: March 07, 2019. 12:13 Acuity: MAGEN 3 aj 12:13 Method Of Arrival: Ambulatory aj 13:36 Transition of care: patient was not received from another setting of care. Onset of ph symptoms was March 09, 2019. Risk Assessment: Do you want to hurt yourself or someone else? Patient reports no desire to harm self or others. Initial Sepsis Screen: Does the patient meet any 2 criteria? No. Patient's initial sepsis screen is negative. Does the patient have a suspected source of infection? No. Patient's initial sepsis screen is negative. Trauma Activation: Not Applicable Physician: ED Physician; Name: ; Notified At: ; Arrived At: Physician: General Surgeon; Name: ; Notified At: ; Arrived At: Physician: Radiology; Name: ; Notified At: ; Arrived At: Physician: Respiratory; Name: ; Notified At: ; Arrived At: Physician: Lab; Name: ; Notified At: ; Arrived At: Historical: - Allergies: 12:15 No Known Allergies; aj - Immunization history: Last tetanus immunization: - up to date. - Social history:: Smoking status: Patient/guardian denies using tobacco. - Ebola Screening: : Patient negative for fever greater than or equal to 101.5 degrees Fahrenheit, and additional compatible Ebola Virus Disease symptoms Patient denies exposure to infectious person Patient denies travel to an Ebola-affected area in the 21 days before illness onset No symptoms or risks identified at this time. Screenin:36 Abuse screen: Denies threats or abuse. Denies injuries from another. Nutritional ph screening: No deficits noted. Tuberculosis screening: No symptoms or risk factors identified. Fall Risk None identified. Primary Survey: 12:13 NO uncontrolled hemorrhage observed. Breathing/Chest: Respiratory pattern: regular, aj Respiratory effort: spontaneous, unlabored. Circulation: Skin color: pink. Disability Alert. Exposure/Environment: There is no evidence of uncontrolled external bleeding. Assessment: 12:13 General: Appears in no apparent distress. uncomfortable, Behavior is calm, cooperative, aj appropriate for age. Pain: Complains of pain in right hip. Neuro: Level of Consciousness is awake, alert, obeys commands, Oriented to person, place, time, situation, Appropriate for age. Respiratory: Airway is patent Respiratory effort is even, unlabored, Respiratory pattern is regular, symmetrical. Derm: Skin is intact, is healthy with good turgor, Skin is pink, warm \T\ dry. normal. Vital Signs: 12:13 BP 142 / 77; Pulse 102; Resp 16; Temp 97.6; Pulse Ox 98% on R/A; Weight 63.05 kg; aj Height 4 ft. 9 in. (144.78 cm); 12:13 Body Mass Index 30.08 (63.05 kg, 144.78 cm) aj [place] Coma Score: 12:13 Eye Response: spontaneous(4). Verbal Response: oriented(5). Motor Response: obeys aj commands(6). Total: 15. Trauma Score (Adult): 12:13 Eye Response: spontaneous(1); Verbal Response: oriented(1); Motor Response: obeys aj commands(2); Systolic BP: > 89 mm Hg(4); Respiratory Rate: 10 to 29 per min(4); Jada Score: 15; Trauma Score: 12 ED Course: 12:03 Patient arrived in ED. as 12:03 out of town, doctor is Private Physician. as 12:14 Triage completed. aj 12:15 Arm band placed on left wrist. Patient placed in an exam room. aj 12:18 Joaquina Martinez RN is Primary Nurse. ph 12:28 Brian Arreola MD is Attending Physician. richa 13:34 CT Lumbar Spine Wo Con In Process Unspecified. EDMS 13:36 Patient has correct armband on for positive identification. Bed in low position. Call ph light in reach. Side rails up X 1. Pulse ox on. NIBP on. Administered Medications: 13:50 Drug: TORadol 60 mg Route: IM; Site: left gluteus; ph 14:40 Follow up: Response: No adverse reaction; Pain is decreased ph 13:50 Drug: Decadron 10 mg Route: IM; Site: left gluteus; ph 14:40 Follow up: Response: No adverse reaction; Pain is decreased ph 13:55 Drug: Valium 5 mg Route: PO; ph 14:40 Follow up: Response: No adverse reaction; Pain is decreased ph 14:08 Drug: [place] (7.5 mg-325 mg) 1 tabs Route: PO; ph 14:40 Follow up: Response: No adverse reaction; Pain is decreased ph Outcome: 14:12 Discharge ordered by MD. chaudhry 14:40 Patient left the ED. ph Signatures: Dispatcher [employer] Aleida Simons RN RN aj Anderson, Corey, MD MD cha Martinez, Amelia as Hall, Patricia, RN RN ph
--- NOTE | 2019-03-09 14:14 | EDPHYS ---
Physician Documentation [facility] Name: Merlyn Fry Age: 59 yrs Sex: Female : 1960 Arrival Date: 03/09/2019 Time: 12:03 Bed 16 Private MD: out of town, doctor ED Physician Brian Arreola HPI: 03/09 13:19 This 59 yrs old Female presents to ER via Ambulatory with complaints of Fall richa Injury. 13:19 Details of fall: The patient fell from an upright position, while walking. Onset: The richa symptoms/episode began/occurred 1.5 week(s) ago. Associated injuries: The patient sustained injury to the low back. Severity of symptoms: At their worst the symptoms were moderate, in the emergency department the symptoms are unchanged. The patient has not experienced similar symptoms in the past. Historical: - Allergies: 12:15 No Known Allergies; aj - Immunization history: Last tetanus immunization: - up to date. - Social history:: Smoking status: Patient/guardian denies using tobacco. - Ebola Screening: : Patient negative for fever greater than or equal to 101.5 degrees Fahrenheit, and additional compatible Ebola Virus Disease symptoms Patient denies exposure to infectious person Patient denies travel to an Ebola-affected area in the 21 days before illness onset No symptoms or risks identified at this time. ROS: 13:20 Constitutional: Negative for fever, chills, and weight loss, Eyes: Negative for injury, richa pain, redness, and discharge, ENT: Negative for injury, pain, and discharge, Neck: Negative for injury, pain, and swelling, Cardiovascular: Negative for chest pain, palpitations, and edema, Respiratory: Negative for shortness of breath, cough, wheezing, and pleuritic chest pain, Abdomen/GI: Negative for abdominal pain, nausea, vomiting, diarrhea, and constipation, : Negative for injury, bleeding, discharge, and swelling, MS/Extremity: Negative for injury and deformity, Skin: Negative for injury, rash, and discoloration, Neuro: Negative for headache, weakness, numbness, tingling, and seizure, Psych: Negative for depression, anxiety, suicide ideation, homicidal ideation, and hallucinations, Allergy/Immunology: Negative for hives, rash, and allergies, Endocrine: Negative for neck swelling, polydipsia, polyuria, polyphagia, and marked weight changes, Hematologic/Lymphatic: Negative for swollen nodes, abnormal bleeding, and unusual bruising. 13:20 Back: Positive for injury or acute deformity, decreased range of motion, pain with movement, of the lumbar area, left low back and right low back. Exam: 13:20 Constitutional: This is a well developed, well nourished patient who is awake, alert, richa and in no acute distress. Head/Face: Normocephalic, atraumatic. Eyes: Pupils equal round and reactive to light, extra-ocular motions intact. Lids and lashes normal. Conjunctiva and sclera are non-icteric and not injected. Cornea within normal limits. Periorbital areas with no swelling, redness, or edema. ENT: Nares patent. No nasal discharge, no septal abnormalities noted. Tympanic membranes are normal and external auditory canals are clear. Oropharynx with no redness, swelling, or masses, exudates, or evidence of obstruction, uvula midline. Mucous membranes moist. Neck: Trachea midline, no thyromegaly or masses palpated, and no cervical lymphadenopathy. Supple, full range of motion without nuchal rigidity, or vertebral point tenderness. No Meningismus. Chest/axilla: Normal chest wall appearance and motion. Nontender with no deformity. No lesions are appreciated. Cardiovascular: Regular rate and rhythm with a normal S1 and S2. No gallops, murmurs, or rubs. Normal PMI, no JVD. No pulse deficits. Respiratory: Lungs have equal breath sounds bilaterally, clear to auscultation and percussion. No rales, rhonchi or wheezes noted. No increased work of breathing, no retractions or nasal flaring. Abdomen/GI: Soft, non-tender, with normal bowel sounds. No distension or tympany. No guarding or rebound. No evidence of tenderness throughout. Skin: Warm, dry with normal turgor. Normal color with no rashes, no lesions, and no evidence of cellulitis. MS/ Extremity: Pulses equal, no cyanosis. Neurovascular intact. Full, normal range of motion. Neuro: Awake and alert, GCS 15, oriented to person, place, time, and situation. Cranial nerves II-XII grossly intact. Motor strength 5/5 in all extremities. Sensory grossly intact. Cerebellar exam normal. Normal gait. Psych: Awake, alert, with orientation to person, place and time. Behavior, mood, and affect are within normal limits. 13:20 Back: pain, that is mild, of the lumbar area and right low back, ROM is painful, normal spinal alignment noted, CVA tenderness, is absent, vertebral tenderness, is not appreciated. Vital Signs: 12:13 BP 142 / 77; Pulse 102; Resp 16; Temp 97.6; Pulse Ox 98% on R/A; Weight 63.05 kg; aj Height 4 ft. 9 in. (144.78 cm); 12:13 Body Mass Index 30.08 (63.05 kg, 144.78 cm) aj [place] Coma Score: 12:13 Eye Response: spontaneous(4). Verbal Response: oriented(5). Motor Response: obeys aj commands(6). Total: 15. Trauma Score (Adult): 12:13 Eye Response: spontaneous(1); Verbal Response: oriented(1); Motor Response: obeys aj commands(2); Systolic BP: > 89 mm Hg(4); Respiratory Rate: 10 to 29 per min(4); [place] Score: 15; Trauma Score: 12 MDM: 12:28 Patient medically screened. [facility] 13:21 Data reviewed: vital signs, nurses notes, lab test result(s), urinalysis, radiologic richa studies. 03/09 13:19 Order name: CT Lumbar Spine Wo Con; Complete Time: 14:12 richa Administered Medications: 13:50 Drug: TORadol 60 mg Route: IM; Site: left gluteus; ph 14:40 Follow up: Response: No adverse reaction; Pain is decreased ph 13:50 Drug: Decadron 10 mg Route: IM; Site: left gluteus; ph 14:40 Follow up: Response: No adverse reaction; Pain is decreased ph 13:55 Drug: Valium 5 mg Route: PO; ph 14:40 Follow up: Response: No adverse reaction; Pain is decreased ph 14:08 Drug: [place] (7.5 mg-325 mg) 1 tabs Route: PO; ph 14:40 Follow up: Response: No adverse reaction; Pain is decreased ph Disposition: 03/09/19 14:12 Discharged to Home. Impression: Low back pain, Sciatica, right side. - Condition is Stable. - Discharge Instructions: Back Pain, Adult, Musculoskeletal Pain, Sciatica, Back Injury Prevention, [id number], Back Pain, Adult, Slra-kn-Xqxs, Sciatica, Nqpz-[id number]. - Prescriptions for Tylenol- Codeine #3 300-30 mg Oral Tablet - take 2 tablet by ORAL route every 6 hours As needed; 30 tablet. Medrol (Erasmo) 4 mg Oral Tablets, Dose Pack - take 1 tablet by ORAL route as directed - follow package instructions; 1 packet. Motrin IB 200 mg Oral Tablet - take 1 tablet by ORAL route every 6 hours As needed as needed with food; 40 tablet. Cyclobenzaprine 5 mg Oral Tablet - take 1 tablet by ORAL route 3 times per day As needed; 15 tablet. - Medication Reconciliation Form, Thank You Letter, Antibiotic Education, Prescription Opioid Use form. - Follow up: Private Physician; When: 2 - 3 days; Reason: Recheck today's complaints, Continuance of care, Re-evaluation by your physician. - Problem is new. - Symptoms have improved. Signatures: Dispatcher [employer] EDAleida Rangel RN RN aj Anderson, Corey, MD MD cha Hall, Patricia, RN RN ph Corrections: (The following items were deleted from the chart) 14:40 14:12 03/09/2019 14:12 Discharged to Home. Impression: Low back pain; Sciatica, right ph side. Condition is Stable. Discharge Instructions: Back Pain, Adult, Musculoskeletal Pain, Sciatica, Back Injury Prevention, Icua-[id number], Back Pain, Adult, Glel-yj-[id number], Sciatica, Efvz-mh-[id number]. Prescriptions for Tylenol-Codeine #3 300-30 mg Oral Tablet - take 2 tablet by ORAL route every 6 hours As needed; 30 tablet, Medrol (Erasmo) 4 mg Oral Tablets, Dose Pack - take 1 tablet by ORAL route as directed - follow package instructions; 1 packet, Motrin IB 200 mg Oral Tablet - take 1 tablet by ORAL route every 6 hours As needed as needed with food; 40 tablet, Cyclobenzaprine 5 mg Oral Tablet - take 1 tablet by ORAL route 3 times per day As needed; 15 tablet. and Forms are Medication Reconciliation Form, Thank You Letter, Antibiotic Education, Prescription Opioid Use. Follow up: Private Physician; When: 2 - 3 days; Reason: Recheck today's complaints, Continuance of care, Re-evaluation by your physician. Problem is new. Symptoms have improved. richa
[2019-03-09 15:20] VITALS: BP 142/77; TEMP 97.6; O2SAT 98
== END 2019-03-09 14:40 | disposition home or self-care (01) ==
LOC: ER 11:58
DX: M54.31 Sciatica, right side (principal); W19.XXXA Unspecified fall, initial encounter; Y93.01 Activity, walking, marching and hiking; Y92.9 Unspecified place or not applicable
CPT/HCPCS: 72131; 96372; 99283; J1100

== ENCOUNTER 2020-02-09 14:35 | Emergency (ER) | payer BC, SELFPAY ==
--- NOTE | 2020-02-09 16:38 | RAD REPORT ---
EXAM DESCRIPTION: CT - Spine Lumbar Wo Con - 02/09/2020 4:30 pm CLINICAL HISTORY: Radiculopathy. Pain;Numbness/tingling COMPARISON: Spine Lumbar Wo Con dated 03/09/2019 TECHNIQUE: Axial noncontrast CT imaging of the lumbar spine was performed with coronal and sagittal re-formatted images. All CT scans are performed using dose optimization technique as appropriate and may include automated exposure control or mA/KV adjustment according to patient size. FINDINGS: No acute lumbar spine fracture seen. No aggressive marrow pattern or malalignment. Paraspinal tissues are normal in thickness. No paraspinal abscess or hematoma seen. Postsurgical changes are present at L4-5 with interpeduncular screws and Lindquist rods present. No evidence of hardware complication. Full assessment at the levels of hardware mildly limited by streak artifact. Elsewhere, mild bulging of disc material seen throughout the lumbar spine without severe c anal stenosis suspected. IMPRESSION: No acute lumbar spine abnormality is discerned. Postsurgical lower lumbar spine without gross complication evident.
--- NOTE | 2020-02-09 16:44 | ER ---
Nurse's Notes [facility] Name: Merlyn Fry Age: 59 yrs Sex: Female : 1960 Arrival Date: 02/09/2020 Time: 14:36 Bed 7 Private MD: Diagnosis: Low back pain;Radiculopathy, lumbar region Presentation: 02/08 14:50 Chief complaint: Patient states: Left lower back pain that radiates down leg for 4 to 5 ll1 months. Feels similar when she had back problems and neuropathy down the right leg a few months ago. 2 back surgeries, no recent falls/inhuries. Coronavirus screen: Proceed with normal triage. Patient denies a cough. Patient reports shortness of breath or difficulty breathing. Patient denies measured and/or subjective temperature greater than 100.4F prior to today's visit. Patient denies travel on a cruise ship or to a country the [facility] currently lists as an affected area. Patient denies contact with known and/or suspected case of COVID-19. Ebola Screen: Patient denies travel to an Ebola-affected area in the 21 days before illness onset. Initial Sepsis Screen: Does the patient meet any 2 criteria? No. Patient's initial sepsis screen is negative. Risk Assessment: Do you want to hurt yourself or someone else? Patient reports no desire to harm self or others. Onset of symptoms was October 10, 2019. 14:50 Method Of Arrival: Wheelchair ll1 14:50 Acuity: MAGEN 4 ll1 15:15 Initial Sepsis Screen: Does the patient have a suspected source of infection? No. sv Patient's initial sepsis screen is negative. Historical: - Allergies: 14:54 No Known Allergies; ll1 - PMHx: 14:54 Hypertension; Myocardial infarction; CVA; ll1 - PSHx: 14:54 2 back surgeries; rotator cuff repair; ll1 - Immunization history:: Flu vaccine is not up to date. Flu vaccine is up to date. - Social history:: Smoking status: Patient reports the use of cigarette tobacco products, denies chronic smoking, but will smoke occasionally, Patient uses alcohol, only on a social basis. Patient/guardian denies using street drugs. Screenin:02 Abuse screen: Denies threats or abuse. Denies injuries from another. Nutritional sv screening: No deficits noted. Tuberculosis screening: No symptoms or risk factors identified. Fall Risk None identified. Assessment: 15:15 General: Appears in no apparent distress. uncomfortable, Behavior is calm, cooperative, sv appropriate for age. Pain: Complains of pain in left low back Pain radiates to left leg Pain currently is 10 out of 10 on a pain scale. Pain began 4-5 months Is intermittent. Neuro: Level of Consciousness is awake, alert, obeys commands, Oriented to person, place, time, situation, Moves all extremities. Full function. Respiratory: Respiratory effort is even, unlabored. Derm: Skin is pink, warm \T\ dry. 17:22 Reassessment: Patient appears in no apparent distress at this time. Patient and/or ss family updated on plan of care and expected duration. Pain level reassessed. Pt reports after medication administration she feels better. Her pain has decreased. Patient states feeling better. Patient states symptoms have improved. Vital Signs: 14:50 Pulse 87; Resp 18; Temp 98.1; Pulse Ox 96% ; Pain 10/10; ll1 14:50 BP 140 / 92; ll1 16:00 BP 132 / 74; Pulse 76; Resp 16; Pulse Ox 96% ; sv 16:45 BP 146 / 99; Pulse 76; Resp 16; Pulse Ox 98% ; sv ED Course: 14:36 Patient arrived in ED. ag5 14:53 Triage completed. ll1 14:55 Arm band placed on Patient placed in an exam room, on a stretcher. ll1 15:02 Shannon Deras, RN is Primary Nurse. sv 15:02 Awaiting ED provider evaluation. sv 15:02 Patient has correct armband on for positive identification. Bed in low position. Call sv light in reach. Door closed. Head of bed elevated. 15:05 Fadi Dover PA is PHCP. jr8 15:05 Mart Alfaro MD is Attending Physician. jr8 15:17 Nurse Practitioner and/or Physician Hose Tubing Backer to see patient. sv 16:31 CT Lumbar Spine Wo Con In Process Unspecified. EDMS 17:22 No provider procedures requiring assistance completed. Patient did not have IV access ss during this emergency room visit. Administered Medications: 17:09 Drug: Decadron 10 mg Route: IM; Site: left deltoid; ss 17:27 Follow up: Response: No adverse reaction; Pain is decreased ss 17:10 Drug: Robaxin 750 mg Route: PO; ss 17:27 Follow up: Response: No adverse reaction; Pain is decreased 17:10 Drug: [place] (7.5 mg-325 mg) 1 tabs Route: PO; ss 17:27 Follow up: Response: No adverse reaction; Pain is decreased Outcome: 16:43 Discharge ordered by MD. leahy 17:22 Discharged to home ambulatory. 17:22 Condition: improved 17:22 Discharge instructions given to patient, Instructed on discharge instructions, follow up and referral plans. medication usage, Demonstrated understanding of instructions, follow-up care, medications, Prescriptions given X 3. 17:29 Patient left the ED. Signatures: Dispatcher [employer] EDShannon Robbins, RN RN Petrona Tao RN RN Fadi Palmer PA PA jr8 Forest Mandel Lynsay, RN RN ll1
--- NOTE | 2020-02-09 16:44 | EDPHYS ---
Physician Documentation [facility] Name: Merlyn Fry Age: 59 yrs Sex: Female : 1960 Arrival Date: 02/09/2020 Time: 14:36 Bed 7 Private MD: ED Physician Mart Alfaro HPI: 02/08 15:59 This 59 yrs old Female presents to ER via Wheelchair with complaints of Back jr8 Pain, Leg Pain, Trouble Walking. 15:59 The patient presents with pain that is acute. The symptoms are located in the low back. jr8 Onset: The symptoms/episode began/occurred acutely, 4 day(s) ago. The pain radiates to the left leg. Associated signs and symptoms: The patient has no apparent associated signs or symptoms. The problem was sustained from unknown cause. Modifying factors: The patient symptoms are alleviated by nothing, the patient symptoms are aggravated by any movement. Severity of symptoms: At their worst the symptoms were moderate, in the emergency department the symptoms are unchanged. The patient has experienced a previous episode. The patient has not recently seen a physician. Patient stated that she has had two low back surgeries in past. Stated that normally her right side hurts and has radicular pain down right leg. Now having left low back pain with radicular extension down left leg . Historical: - Allergies: 14:54 No Known Allergies; ll1 - PMHx: 14:54 Hypertension; Myocardial infarction; CVA; ll1 - PSHx: 14:54 2 back surgeries; rotator cuff repair; ll1 - Immunization history:: Flu vaccine is not up to date. Flu vaccine is up to date. - Social history:: Smoking status: Patient reports the use of cigarette tobacco products, denies chronic smoking, but will smoke occasionally, Patient uses alcohol, only on a social basis. Patient/guardian denies using street drugs. ROS: 15:59 Eyes: Negative for injury, pain, redness, and discharge, ENT: Negative for injury, jr8 pain, and discharge, Neck: Negative for injury, pain, and swelling, Cardiovascular: Negative for chest pain, palpitations, and edema, Respiratory: Negative for shortness of breath, cough, wheezing, and pleuritic chest pain, Abdomen/GI: Negative for abdominal pain, nausea, vomiting, diarrhea, and constipation, MS/Extremity: Negative for injury and deformity, Skin: Negative for injury, rash, and discoloration, Neuro: Negative for headache, weakness, numbness, tingling, and seizure. 15:59 Back: Positive for decreased range of motion, pain at rest, pain with movement, radiated pain, of the left low back. Exam: 15:59 Constitutional: This is a well developed, well nourished patient who is awake, alert, jr8 and in no acute distress. Cardiovascular: Regular rate and rhythm with a normal S1 and S2. No gallops, murmurs, or rubs. Normal PMI, no JVD. No pulse deficits. Respiratory: Lungs have equal breath sounds bilaterally, clear to auscultation and percussion. No rales, rhonchi or wheezes noted. No increased work of breathing, no retractions or nasal flaring. Abdomen/GI: Soft, non-tender, with normal bowel sounds. No distension or tympany. No guarding or rebound. No evidence of tenderness throughout. Skin: Warm, dry with normal turgor. Normal color with no rashes, no lesions, and no evidence of cellulitis. MS/ Extremity: Pulses equal, no cyanosis. Neurovascular intact. Full, normal range of motion. Neuro: Awake and alert, GCS 15, oriented to person, place, time, and situation. Cranial nerves II-XII grossly intact. Motor strength 5/5 in all extremities. Sensory grossly intact. 15:59 Back: pain, that is moderate, of the left low back, ROM is painful, normal spinal alignment noted, CVA tenderness, is absent, vertebral tenderness, is not appreciated, Straight leg raises: left lower extremity illicits pain, at 60 degrees. Vital Signs: 14:50 Pulse 87; Resp 18; Temp 98.1; Pulse Ox 96% ; Pain 10/10; ll1 14:50 BP 140 / 92; ll1 16:00 BP 132 / 74; Pulse 76; Resp 16; Pulse Ox 96% ; sv 16:45 BP 146 / 99; Pulse 76; Resp 16; Pulse Ox 98% ; sv MDM: 15:05 Patient medically screened. jr8 16:41 Data reviewed: vital signs, nurses notes, radiologic studies, CT scan. Data jr8 interpreted: Pulse oximetry: on room air is 96 %. Interpretation: normal. Counseling: I had a detailed discussion with the patient and/or guardian regarding: the historical points, exam findings, and any diagnostic results supporting the discharge/admit diagnosis, radiology results, the need for outpatient follow up, a orthopedic surgeon, to return to the emergency department if symptoms worsen or persist or if there are any questions or concerns that arise at home. Response to treatment: the patient's symptoms have mildly improved after treatment. ED course: Discussed with patient that there are no acute lumbar findings on CT. Will put her on medication and see how she does over next week or so. If worse to come back. If not better needs to f/u with ortho spine. Patient currently without focal deficit, bowel, or bladder dysfunction . 02/08 15:26 Order name: CT Lumbar Spine Wo Con; Complete Time: 16:41 jr8 Administered Medications: 17:09 Drug: Decadron 10 mg Route: IM; Site: left deltoid; ss 17:27 Follow up: Response: No adverse reaction; Pain is decreased ss 17:10 Drug: Robaxin 750 mg Route: PO; ss 17:27 Follow up: Response: No adverse reaction; Pain is decreased ss 17:10 Drug: [place] (7.5 mg-325 mg) 1 tabs Route: PO; ss 17:27 Follow up: Response: No adverse reaction; Pain is decreased ss Disposition: 18:00 Co-signature as Attending Physician, Mart Alfaro MD I agree with the assessment and kdr plan of care. Disposition: 02/09/20 16:43 Discharged to Home. Impression: Low back pain, Radiculopathy, lumbar region. - Condition is Stable. - Discharge Instructions: Back Pain, Adult, Musculoskeletal Pain, Neuropathic Pain, Heat Therapy. - Prescriptions for Zanaflex 4 mg Oral Tablet - take 1 tablet by ORAL route every 8 hours As needed; 20 tablet. Tramadol 50 mg Oral Tablet - take 1 tablet by ORAL route every 8 hours as needed; 12 tablet. Medrol (Erasmo) 4 mg Oral Tablets, Dose Pack - take 1 tablet by ORAL route as directed - follow package instructions; 1 packet. - Medication Reconciliation Form, Thank You Letter, Antibiotic Education, Prescription Opioid Use form. - Follow up: Private Physician; When: 1 week; Reason: Recheck today's complaints, Continuance of care, Re-evaluation by your physician. - Problem is new. - Symptoms have improved. Signatures: Dispatcher [employer] EDMS Mart Alfaro MD MD [facility] Petrona Oro RN RN ss Fadi Dover PA PA jr8 Jana Reina RN RN ll1 Corrections: (The following items were deleted from the chart) 17:29 16:43 02/09/2020 16:43 Discharged to Home. Impression: Low back pain; Radiculopathy, ss lumbar region. Condition is Stable. Forms are Medication Reconciliation Form, Thank You Letter, Antibiotic Education, Prescription Opioid Use. Follow up: Private Physician; When: 1 week; Reason: Recheck today's complaints, Continuance of care, Re-evaluation by your physician. Problem is new. Symptoms have improved. jr8
[2020-02-09] MEDS ORDERED: HYDROCODONE/APAP 7.5/325 MG TAB ONE (17:09)
[2020-02-09] MEDS ORDERED: dexAMETHasone 10 MG/ML VIAL ONE (17:09)
[2020-02-09] MEDS ORDERED: methocarbamoL 500 MG TAB ONE (17:10)
[2020-02-09 17:34] VITALS: TEMP 98.1
[2020-02-09 17:36] VITALS: BP 146/99; O2SAT 98
--- OUTSIDE RECORDS SUMMARY | 2020-02-09 17:56 | XMS REPORT | Continuity of Care Document ---
:1960 Author Organization [facility] t Address [address] [place] [address] [place] [id number] Care Team Providers Name Role Phone Unavailable Unavailable Unavailable Problems This patient has no known problems. Allergies, Adverse Reactions, Alerts This patient has no known allergies or adverse reactions. Medications This patient has no known medications. Procedures This patient has no known procedures. Results This patient has no known results.
== END 2020-02-09 17:29 | disposition home or self-care (01) ==
LOC: ER 14:35
DX: M54.16 Radiculopathy, lumbar region (principal); I10 Essential (primary) hypertension; F17.210 Nicotine dependence, cigarettes, uncomplicated; I25.2 Old myocardial infarction
CPT/HCPCS: 72131; 96372; 99283; J1100

== ENCOUNTER 2021-12-12 14:50 | Emergency (ER) | payer SELFPAY ==
--- OUTSIDE RECORDS SUMMARY | 2021-12-12 14:53 | XMS REPORT | Continuity of Care Document ---
:1960 Author Organization [facility] t Address [address] [place] [address] Care Team Providers Name Role Phone Varinder CARRERA Attending Clinician Unavailable Payers Payer Name Policy Type Policy Number Effective Date Expiration Date S jay MEDICARE PART A \T\ [id number] 2020 B 00:00:00 [facility] [id number] 2020 (MEDICARE 00:00:00 REPLACEMENT HMO) Problems This patient has no known problems. Allergies, Adverse Reactions, Alerts Allergy Allergy Status Severity Reaction(s) Onset Inactive Treating Comm ents Source Name Type Date Date Clinician NO KNOWN Drug Active [facility] ALLERGIE Class it of [facility] Medications This patient has no known medications. Procedures This patient has no known procedures. Encounters Start End Encounter Admission Attending Care Care Encounter Source Date/Time Date/Time Type Type Clinicians Facility Department ID 2020-12-08 2020-12-08 Outpatient Lashay CARRERA [facility] [id number] Univers 09:00:00 09:00:00 [place] [id number] [facility] 2020-12-08 2020-12-08 Outpatient Lashay CARRERA [facility] [id number] Univers 00:00:00 00:00:00 [facility] 2020-12-07 2020-12-07 Outpatient Lashay CARRERA [facility] [id number] Univers 08:00:00 08:00:00 [place] [id number] [facility] 2020-12-07 2020-12-07 Outpatient Lashay CARRERA [facility] [id number] Univers 00:00:00 00:00:00 [facility] 2020-12-05 2020-12-05 Outpatient DMG DMG [id number] Devoted 11:01:00 11:01:00 [id number] [facility] Results Test Description Test Time Test Comments Results Result Comments Source RPR 2021-12-08 06:27:44 Test Item Value Reference Range Interpretation Comme nts RPR RESULT (test code = 3501) NON-REACTIVE NON-REACTIVE RPR TITER (test code = 3500) NOT INDIC. TITER NOT INDIC. TSH, THIRD [id number] 05:55:55 Test Item Value Reference Range Interpretation Comments TSH, THIRD 1.820 UIU/ML 0.400-4.100 UNLESS GENERATION (test OTHERWISE I NDICATED, code = 2821) ALL TESTING PER [facility], [address] [place] [address] LABORATORY DIRE CTOR: LIMA GARG M.D. CLIA NUMBER [id number] CAP ACCREDITATION N O. [id number] LIPID [id number] 05:30:21 Test Item Value Reference Range Interpretation Comments CHOLESTEROL (test 273 MG/DL <200 H code = 2210) TRIGLYCERIDES (test 117 MG/DL <150 code = 2232) HDL CHOLESTEROL (test 84 MG/DL >39 code = 2220) CALC LDL CHOL (test 166 MG/DL <100 H NOTE: C ALCULATED LDL code = 2237) IS BASED ON DOREEN-HANNA METHOD WHICHINCLUDES ADJUSTABLE TRIGLYCERIDE:VL DL CHOLESTEROL RAT IO.THIS FACTOR VARIES B Y MEASURED TRIGLY CERIDE AND NON-HDLCHOL ESTEROL CONCENTRATIONS WITH INCREASED CALCU LATED LDL SEENIN HIGH ER TRIGLYCERIDE OR LOWER NON-HDL SPECIME NS. FOR MOREINFORMATION , SEE CLIENT ANNOUNCE MENT AT [email or web address] RISK RATIO LDL/HDL 1.98 RATIO <3.22 (test code = 2238) COMPREHENSIVE METABOLIC [id number] 05:30:21 Test Item Value Reference Range Interpretation Comments GLUCOSE (test code = 90 MG/DL 70-99 2216) BUN (test code = 14 MG/DL 8-2207) CREATININE (test 0.57 MG/DL 0.60-1.30 L code = 2214) eGFR (2020 CKD-EPI) 103 >60 (test code = 90034) ML/MIN/1.73 CALC BUN/CREAT (test 25 RATIO 6-28 code = 2235) SODIUM (test code = 129 MEQ/L 133-146 L 2230) POTASSIUM (test code 4.9 MEQ/L 3.5-5.4 = 2228) CHLORIDE (test code 92 MEQ/L 95-107 L = 2215) CARBON DIOXIDE (test 22 MEQ/L 19-31 code = 2206) CALCIUM (test code = 10.2 MG/DL 8.5-10.5 2208) PROTEIN, TOTAL (test 7.2 G/DL 6.1-8.3 code = 2229) ALBUMIN (test code = 4.6 G/DL 3.5-5.2 2200) CALC GLOBULIN (test 2.6 G/DL 1.9-3.7 code = 2240) CALC A/G RATIO (test 1.8 RATIO 1.0-2.6 code = 2234) BILIRUBIN, TOTAL 0.3 MG/DL See_Comment [Automated message] (test code = 220) The syste [employer] which generated this result transmit nohemi reference range : <=1.2. The refe rence range was not u sed to interpret th is result as normal/abnormal . ALKALINE PHOSPHATASE 128 U/L 40-140 (test code = 2203) AST (test code = 21 U/L 9-40 2217) ALT (test code = 8 U/L 5-40 2218) HEMOGLOBIN [id number] 04:33:12 Test Item Value Reference Range Interpretation Comments HEMOGLOBIN A1c (test code = 88779) 5.6 % 4.2-5.6 HIV 1/2 4TH GEN, RFLX [id number] 04:22:16 Test Item Value Reference Range Interpretation Comments HIV 1/2 4TH GEN, RFLX CONF (test NON-REACTIVE NON-REACTIVE code = 3514) HEPATITIS PANEL, [id number] 04:22:16 Test Item Value Reference Range Interpretation Comments HEPATITIS A IgM (test NON-REACTIVE NON-REACTIVE code = 60408) HEPATITIS B CORE IgM NON-REACTIVE NON-REACTIVE (test code = 4644) HEPATITIS B SURF AG NON-REACTIVE NON-REACTIVE (test code = 2739) HEPATITIS C ANTIBODY NON-REACTIVE NON-REACTIVE (test code = 4675) INTERPRETATION (NOTE) Hepatiti s A HEPATITIS A: (test code sero logy shows no = 3182) evidence of acu te hepatitis A. INTERPRETATION (NOTE) Hepatiti s B HEPATITIS B: (test code sero logy shows no = 03992) evidence of acu te hepatitis B and no indication of exposure to hepatitis B vir us in the previous bret eight months. INTERPRETATION (NOTE) Hepatiti s C HEPATITIS C: (test code sero logy shows no = 80259) evidence of exposure to hepatitisC viru s at this time. It can take up to 12 months after exposure tothe hepatitis C vir us for antibodies to become detectab le in the bloo d in certain patients. CBC W/AUTO DIFF WITH [id number] 03:15:15 Test Item Value Reference Range Interpretation Comments WBC (test code = 9.0 K/UL 3.5-11.0 1001) RBC (test code = 4.52 M/UL 3.80-5.40 1002) HEMOGLOBIN (test code 14.1 G/DL 11.5-15.5 = 1003) HEMATOCRIT (test code 39.6 % 34.0-45.0 = 1004) MCV (test code = 87.6 fL 80.0-99.0 1005) MCH (test code = 31.2 PG 25.0-33.0 1006) MCHC (test code = 35.6 G/DL 31.0-36.0 1007) RDW (test code = 12.4 % 11.5-15.0 1038) NEUTROPHILS (test 67.5 % code = 1008) LYMPHOCYTES (test 24.5 % code = 1010) MONOCYTES (test code 5.8 % = 1011) EOSINOPHILS (test 0.7 % code = 1012) BASOPHILS (test code 0.9 % = 1013) IMMATURE GRANULOCYTES 0.6 % (test code = 1036) NUCLEATED RBCS (test 0.0 /100 See_Comment [Autom ated code = 1065) WBC'S message] The sy stem which generated this result transmitted reference range : 0.0. The refere nce range was not u sed to interpret th is result as normal/abnormal . PLATELET COUNT (test 410 K/UL 130-400 H code = 1015) ABSOLUTE NEUTROPHILS 6.11 K/UL 1.50-7.50 (test code = 1066) ABSOLUTE LYMPHOCYTES 2.21 K/UL 1.00-4.00 (test code = 1067) ABSOLUTE MONOCYTES 0.52 K/UL 0.20-1.00 (test code = 1068) ABSOLUTE EOSINOPHILS 0.06 K/UL 0.00-0.50 (test code = 1040) ABSOLUTE BASOPHILS 0.08 K/UL 0.00-0.20 (test code = 1069) ABS IMMATURE 0.05 K/UL 0.00-0.10 GRANULOCYTES (test code = 1020) ABS NUCLEATED RBCS 0.00 K/UL 0.00-0.11 (test code = 25011)
--- NOTE | 2021-12-12 16:26 | RAD REPORT ---
EXAM DESCRIPTION: RAD - Chest Single View - 12/12/2021 3:56 pm CLINICAL HISTORY: Chest pain COMPARISON: Portable December 2017 TECHNIQUE: AP portable chest image was obtained 12/12/2021 3:56 pm . FINDINGS: Lung volumes are low. No acute lung parenchymal process seen. Interstitial pattern matches comparison. PICC line has been removed since prior imaging. Right hemidiaphragm elevation again note d. Heart and vasculature are normal. No measurable pleural effusion and no pneumothorax. No acute bon y abnormality seen. No acute aortic findings suspected. No significant change from comparison study. IMPRESSION: No acute cardiopulmonary process.
[2021-12-12 17:11] LABS: Absolute Lymphocytes (CBC) 2.3 K/uL (0.7-4.9); Hematocrit 39.4 % (36.0-45.0); Lymphocytes % 29.2 % (15.3-44.8); MPV 6.6 fL (7.6-11.3); RBC Red Blood Cell Count 4.31 M/uL (3.86-4.86)
--- NOTE | 2021-12-12 17:12 | RAD REPORT ---
EXAM DESCRIPTION: CT - Head Brain Wo Cont - 12/12/2021 5:03 pm CLINICAL HISTORY: paresthesia COMPARISON: No comparisons TECHNIQUE: Axial 5 mm thick images of the head were obtained without IV contrast. All CT scans are performed using dose optimization technique as appropriate and may include automated exposure control or mA/KV adjustment according to patient size. FINDINGS: No intracranial hemorrhage, mass, edema or shift of mid-line structures. No cortical based infarction seen. No cortical edema or sulcal effacement. No significant atrophy or chronic ischemic changes identifiable. Arterial tree calcifications are present. No abnormal extra-axial fluid collect ions. Ventricles are normal. Mastoid air cells are clear. Air-fluid level is present in the sphenoid sinus. No acute bony findings. IMPRESSION: No acute intracranial finding. No significant atrophy or chronic ischemic changes noted. Air-fluid level is present in the sphenoid sinus.
--- NOTE | 2021-12-12 18:42 | RAD REPORT ---
EXAM DESCRIPTION: MRI - Brain Wo Cont - 12/12/2021 5:44 pm CLINICAL HISTORY: left sided paresthesia COMPARISON: Head Brain Wo Cont dated 12/12/2021 TECHNIQUE: Sagittal T1-weighted images were obtained along with axial PD, heavily T2-weighted and T2 -FLAIR images. Axial DWI and ADC mapping sequences were also obtained along with coronal heavily T2-w eighted images. FINDINGS: No intracranial hemorrhage, mass or acute infarction. There is no edema or shift of midlin e structures. No extra-axial fluid collections. Nair-matter/white matter junction is preserved. Signa l voids are seen as a normal finding in the major intracranial vessels. No significant degree of atrophy or chronic ischemic change. Ventricles are normal. No globe or orbit al content abnormality. No sella or supra sella abnormality. Mastoid air cells are clear. Air-fluid level seen in the sphenoid sinus. IMPRESSION: No infarction or other acute intracranial finding. No significant atrophy or chronic ischemic change. Air-fluid level in sphenoid sinus.
[2021-12-12 19:07] LABS: BUN Blood Urea Nitrogen 9 mg/dL (7-18); Bicarbonate 24 mmol/L (21-32); Glucose Level 89 mg/dL (74-106); NT PRO-BNP 22 pg/mL (<125); Potassium 4.1 mmol/L (3.5-5.1); Sodium Level 129 mmol/L (136-145)
[2021-12-12 19:09] LABS: Troponin High Sensitivity < 3.0 pg/mL (<58.9)
[2021-12-12] MEDS ORDERED: LIDOCAINE 4% PATCH ONE (19:35)
--- NOTE | 2021-12-12 19:43 | ER ---
Nurse's Notes [facility] Name: Merlyn Fry Age: 61 yrs Sex: Female : 1960 Arrival Date: 12/12/2021 Time: 14:51 Bed 5 Private MD: Jennifer Snyder Diagnosis: Radiculopathy, cervical region;Chest pain, unspecified Presentation: 12/12 14:55 Chief complaint: Patient states: L head, jaw, L chest, L shoulder pain off/on for 2 ll1 days. Both legs felt weighted yesterday. Took 2 nitro's yesterday that did help the pain. Cough for 1 month. Coronavirus screen: Vaccine status: Patient reports receiving the 2nd dose of the covid vaccine. Client denies travel out of the [place] in the last 14 days. congestion, cough unrelated to allergies, fatigue, headache, Client presents with at least one sign or symptom that may indicate coronavirus-19. Standard/surgical mask placed on the client. Ebola Screen: Patient denies travel to an Ebola-affected area in the 21 days before illness onset. Initial Sepsis Screen: Does the patient meet any 2 criteria? No. Patient's initial sepsis screen is negative. Does the patient have a suspected source of infection? No. Patient's initial sepsis screen is negative. Risk Assessment: Do you want to hurt yourself or someone else? Patient reports no desire to harm self or others. Onset of symptoms was December 11, 2021. 14:55 Method Of Arrival: Ambulatory ll1 14:55 Acuity: MAGEN 3 ll1 Triage Assessment: 15:01 General: Appears uncomfortable, Behavior is calm, cooperative, appropriate for age. ll1 Pain: Complains of pain in L chest Quality of pain is described as. Neuro: Reports weakness. Cardiovascular: Reports chest pain, fatigue. Historical: - Allergies: 14:59 No Known Allergies; ll1 - PMHx: 14:59 Hypertension; CVA; Myocardial infarction; E Coli; ll1 - PSHx: 14:59 back SX x 2; heart stent; hysterectomy; ll1 - Immunization history:: Client reports receiving the 2nd dose of the Covid vaccine. - Social history:: Smoking status: Patient reports the use of cigarette tobacco products, 2 or 3 cigs/day. Screenin:33 Abuse screen: Denies threats or abuse. Denies injuries from another. Nutritional ph screening: No deficits noted. Tuberculosis screening: No symptoms or risk factors identified. Fall Risk None identified. Assessment: 17:00 General: Appears in no apparent distress. comfortable, well groomed, Behavior is calm, ph cooperative, appropriate for age, Denies fever, chills. Pain: Complains of pain in anterior aspect of left upper chest Pain radiates to left arm Pain began 2-3 days ago. Is intermittent. Neuro: Level of Consciousness is awake, alert, obeys commands, Oriented to person, place, time, situation, Reports weakness in right leg and left leg. Cardiovascular: Reports chest pain, fatigue. Respiratory: Airway is patent Respiratory effort is even, unlabored, Respiratory pattern is regular, symmetrical. Derm: Skin is healthy with good turgor, Skin is pink, warm \T\ dry. Musculoskeletal: Circulation, motion, and sensation intact. Range of motion: intact in all extremities. 19:33 General: Appears in no apparent distress. comfortable, Behavior is calm, cooperative. lg3 Pain: Complains of pain in left posterior neck and shoulder. Neuro: No deficits noted. Mcginnis Agitation-Sedation Scale (RASS): 0 - Alert and Calm Level of Consciousness is awake, alert, obeys commands, Oriented to person, place, time, situation. Cardiovascular: No deficits noted. Reports fatigue, Capillary refill < 3 seconds Clubbing of nail beds is absent JVD is absent Patient's skin is warm and dry. Respiratory: No deficits noted. Airway is patent Trachea midline Respiratory effort is even, unlabored, Respiratory pattern is regular, symmetrical. GI: No deficits noted. No signs and/or symptoms were reported involving the gastrointestinal system. : No deficits noted. No signs and/or symptoms were reported regarding the genitourinary system. EENT: No deficits noted. No signs and/or symptoms were reported regarding the EENT system. EENT: No deficits noted. No signs and/or symptoms were reported regarding the EENT system. Derm: No deficits noted. No signs and/or symptoms reported regarding the dermatologic system. Skin is intact, is healthy with good turgor, Skin is dry, Skin is pink, warm \T\ dry. Musculoskeletal: No deficits noted. Circulation, motion, and sensation intact. Range of motion: intact in all extremities. Vital Signs: 14:55 BP 136 / 97; Pulse 80; Resp 16; Temp 97.9; Pulse Ox 99% ; Weight 67.59 kg; Height 4 ft. ll1 11 in. (149.86 cm); Pain 8/10; 17:00 BP 141 / 87; Pulse 78; Resp 18; Pulse Ox 99% on R/A; ph 18:15 BP 155 / 102; Pulse 72; Resp 16; Pulse Ox 98% on R/A; ph 19:14 BP 162 / 105; Pulse 70; Resp 16; Pulse Ox 99% on R/A; ph 14:55 Body Mass Index 30.09 (67.59 kg, 149.86 cm) ll1 Vitals: 19:14 Cardiac Rhythm Assessment Sinus rhythm. ED Course: 14:51 Patient arrived in ED. as 14:51 Jennifer Snyder is Private Physician. as 14:59 Triage completed. ll1 15:01 Arm band placed on. ll1 15:58 XRAY Chest (1 view) In Process Unspecified. EDMS 16:28 Frederick Lewis NP is PHCP. pm1 16:28 Osito Killian MD is Attending Physician. pm1 16:30 Patient placed in an exam room, on a stretcher. ld1 16:32 Joaquina Martinez RN is Primary Nurse. ph 16:33 Patient has correct armband on for positive identification. Bed in low position. Call light in reach. Side rails up X 1. Client placed on continuous cardiac and pulse oximetry monitoring. NIBP monitoring applied. Door closed. Noise minimized. 17:00 Initial lab(s) drawn, by oh, sent to lab. Inserted saline lock: 20 gauge in right ph antecubital area, using aseptic technique. Blood collected. Patient maintains SpO2 saturation greater than 95% on room air. 17:04 CT Head Brain wo Cont In Process Unspecified. EDMS 17:38 MRI - Brain Wo Cont In Process Unspecified. EDMS 19:13 No provider procedures requiring assistance completed. ph 19:27 Primary Nurse role handed off by Joaquina Martinez, RN mw2 20:46 IV discontinued, intact, bleeding controlled, No redness/swelling at site. Pressure vc1 dressing applied. Administered Medications: 19:33 Drug: Lidoderm Patch 5 % (700 mg/patch) 1 patches Route: Topical; Site: affected area; lg3 19:33 Follow up: Response: No adverse reaction; Marked relief of symptoms lg3 Outcome: 19:43 Discharge ordered by MD. pm1 20:46 Discharged to home ambulatory, with significant other. vc1 20:46 Condition: good 20:46 Discharge instructions given to patient, significant other, Instructed on discharge instructions, follow up and referral plans. medication usage, Demonstrated understanding of instructions, follow-up care, medications, Prescriptions given X 2. 20:47 Patient left the ED. mw2 Signatures: Dispatcher [employer] EDMS May Salcedo Patricia, RN RN ph Frederick Lewis, LINDA STRAIGHTENING MACHINE FEEDER pm1 Doreen Joshua mw2 Sandra Vasques RN RN lg3 Jana Reina RN RN ll1 Bethany Chatterjee RN RN ld1 Coreen Kaur RN RN vc1
--- NOTE | 2021-12-12 19:43 | EDPHYS ---
Physician Documentation [facility] Name: Merlyn Fry Age: 61 yrs Sex: Female : 1960 Arrival Date: 12/12/2021 Time: 14:51 Bed 5 Private MD: Jennifer Snyder ED Physician Osito Killian HPI: 12/12 15:20 This 61 yrs old Female presents to ER via Ambulatory with complaints of Jaw Pain, Arm pm1 Pain, Chest Pain, Leg Pain - heaviness. 15:20 The patient or guardian reports chest pain that is located primarily in the anterior pm1 aspect of right upper chest and anterior aspect of left upper chest. Onset: yesterday. The pain radiates to the left arm, Associated signs and symptoms: Pertinent positives: numbness to left side and heaviness to bilateral feet, Pertinent negatives: abdominal pain, cough, diaphoresis, dizziness, nausea, shortness of breath, vomiting. The chest pain is described as aching. Duration: The patient or guardian reports a single episode, that is still ongoing. The patient has experienced a previous episode, patient reports it feels similar to prior stroke and heart attack. The patient has not recently seen a physician. Historical: - Allergies: 14:59 No Known Allergies; ll1 - PMHx: 14:59 Hypertension; CVA; Myocardial infarction; E Coli; ll1 - PSHx: 14:59 back SX x 2; heart stent; hysterectomy; ll1 - Immunization history:: Client reports receiving the 2nd dose of the Covid vaccine. - Social history:: Smoking status: Patient reports the use of cigarette tobacco products, 2 or 3 cigs/day. ROS: 15:20 Constitutional: Negative for fever, chills, and weight loss. pm1 15:20 Respiratory: Negative for shortness of breath, cough, wheezing, and pleuritic chest pain, Abdomen/GI: Negative for abdominal pain, nausea, vomiting, diarrhea, and constipation, MS/Extremity: Negative for injury and deformity, Skin: Negative for injury, rash, and discoloration. 15:20 Cardiovascular: Positive for chest pain, Negative for edema, palpitations. 15:20 Neuro: Positive for headache, numbness, of the left arm, right leg and left leg. 15:20 All other systems are negative. Exam: 15:20 Constitutional: This is a well developed, well nourished patient who is awake, alert, pm1 and in no acute distress. Head/Face: Normocephalic, atraumatic. 15:20 Skin: Warm, dry with normal turgor. Normal color with no rashes, no lesions, and no evidence of cellulitis. MS/ Extremity: Pulses equal, no cyanosis. Neurovascular intact. Full, normal range of motion. 15:20 ENT: Exam is negative for acute changes, Mouth: no acute changes, Lips: normal, moist, Oral mucosa: normal, pink and intact, moist. 15:20 Neck: C-spine: vertebral tenderness, is not appreciated. 15:20 Cardiovascular: Exam negative for acute changes, Rate: normal, Rhythm: regular, Pulses: no pulse deficits are appreciated. 15:20 Respiratory: Exam negative for acute changes, respiratory distress, shortness of breath, Breath sounds: are clear throughout. 15:20 Abdomen/GI: Inspection: abdomen appears normal, Palpation: abdomen is soft and non-tender, in all quadrants. 15:20 Back: normal spinal alignment noted, vertebral tenderness, is not appreciated, muscle spasm, is appreciated in the left trapezius. 15:20 Neuro: Exam negative for acute changes, Orientation: is normal, Mentation: is normal, Cranial nerves: CN II- XII are normal as tested, Cerebellar function: normal finger to nose testing, Motor: moves all fours, strength is 5/5 in all extremities, Sensation: no obvious gross deficits. Vital Signs: 14:55 BP 136 / 97; Pulse 80; Resp 16; Temp 97.9; Pulse Ox 99% ; Weight 67.59 kg; Height 4 ft. ll1 11 in. (149.86 cm); Pain 8/10; 17:00 BP 141 / 87; Pulse 78; Resp 18; Pulse Ox 99% on R/A; ph 18:15 BP 155 / 102; Pulse 72; Resp 16; Pulse Ox 98% on R/A; ph 19:14 BP 162 / 105; Pulse 70; Resp 16; Pulse Ox 99% on R/A; ph 14:55 Body Mass Index 30.09 (67.59 kg, 149.86 cm) ll1 MDM: 16:30 Patient medically screened. pm1 19:41 Data reviewed: vital signs. Data interpreted: Pulse oximetry: on room air is 99 %. pm1 Interpretation: normal. Counseling: I had a detailed discussion with the patient and/or guardian regarding: the historical points, exam findings, and any diagnostic results supporting the discharge/admit diagnosis, lab results, radiology results, the need for outpatient follow up, to return to the emergency department if symptoms worsen or persist or if there are any questions or concerns that arise at home. 19:55 ED course: Patient with muscle spasm present to left trapezius massage to area improved pm1 patient's pain and symptoms of numbness and tingling to her left arm. Lidoderm patch placed to left trapezius improving her symptoms further. Negative CT head negative CT MRI and negative cardiac evaluation and labs for chest pain ongoing greater than 24 hours. Patient's symptoms related to her cervical radiculopathy from muscle spasm to trapezius. 12/12 15:20 Order name: Basic Metabolic Panel; Complete Time: 19:17 rn 12/12 15:20 Order name: CBC with Diff; Complete Time: 17:51 rn 12/12 15:20 Order name: NT PRO-BNP; Complete Time: 19:17 rn 12/12 15:20 Order name: Troponin HS; Complete Time: 19:17 rn 12/12 15:20 Order name: XRAY Chest (1 view); Complete Time: 16:29 rn 12/12 15:20 Order name: Procalcitonin; Complete Time: 19:39 rn 12/12 15:20 Order name: EKG; Complete Time: 15:21 rn 12/12 15:20 Order name: Cardiac monitoring; Complete Time: 17:17 rn 12/12 15:20 Order name: EKG - Nurse/Tech; Complete Time: 16:33 rn 12/12 15:20 Order name: IV Saline Lock; Complete Time: 17:17 rn 12/12 15:20 Order name: Labs collected and sent; Complete Time: 17:17 rn 12/12 16:44 Order name: CT Head Brain wo Cont; Complete Time: 17:51 pm1 12/12 16:44 Order name: MRI - Brain Wo Cont; Complete Time: 18:55 pm1 12/12 15:20 Order name: O2 Per Protocol; Complete Time: 16:33 rn 12/12 15:20 Order name: O2 Sat Monitoring; Complete Time: 16:33 rn 12/12 17:15 Order name: Labs - recollect needed: recollect green top; Complete Time: 18:43 bd Administered Medications: 19:33 Drug: Lidoderm Patch 5 % (700 mg/patch) 1 patches Route: Topical; Site: affected area; lg3 19:33 Follow up: Response: No adverse reaction; Marked relief of symptoms lg3 Disposition: 12/13 07:12 Co-signature as Attending Physician, Osito Killian MD. rn Disposition Summary: 12/12/21 19:43 Discharge Ordered Location: Home pm1 Problem: new pm1 Symptoms: have improved pm1 Condition: Stable pm1 Diagnosis - Radiculopathy, cervical region pm1 - Chest pain, unspecified pm1 Followup: pm1 - With: Emergency Department - When: As needed - Reason: Worsening of condition Followup: pm1 - With: Private Physician - When: 2 - 3 days - Reason: Recheck today's complaints, Continuance of care, Re-evaluation by your physician Discharge Instructions: - Discharge Summary Sheet pm1 - Cervical Radiculopathy pm1 - Nonspecific Chest Pain, Adult pm1 Forms: - Medication Reconciliation Form pm1 - Thank You Letter pm1 - Antibiotic Education pm1 - Prescription Opioid Use pm1 Prescriptions: - Lidoderm 5 % Topical adhesive patch,medicated - apply 1 patch by TRANSDERMAL route once daily As needed 12 hours on and 12 pm1 hours off in a 24 hour period; 10 patch; Refills: 0, Product Selection Permitted - Cyclobenzaprine 10 mg Oral Tablet - take 1 tablet by ORAL route every 8 hours As needed; 20 tablet; Refills: 0, pm1 Product Selection Permitted Signatures: Dispatcher [employer] EDMS Jillian Brandon Roman, MD MD rn Marinas, Patrick, NP [employer]IV[employer] ENG[employer]ING DES[employer]RAFTSPERSON pm1 Sandra Vasques RN RN lg3 Jana Reina RN RN ll1 Corrections: (The following items were deleted from the chart) 12/12 19:56 19:55 ED course: Patient with muscle spasm present to left trapezius massage to area pm1 improved patient's pain and symptoms of numbness and tingling to her left arm. Lidoderm patch placed to left trapezius improving her symptoms further. Negative CT head negative CT MRI and negative cardiac evaluation and labs for chest pain ongoing greater than 24 hours. Patient's symptoms related to her cervical radiculopathy. pm1
[2021-12-12 22:32] VITALS: TEMP 97.9
[2021-12-12 22:35] VITALS: BP 162/105; O2SAT 99
--- NOTE | 2021-12-13 12:54 | EKG ---
Test Date: 2021-12-12 Test Time: 14:54:25 Airframe Design Engineer: DELON MEASUREMENT RESULTS: Intervals: Rate: 78 PA: 190 QRSD: 86 QT: 386 QTc: 440 [place]: P: 40 PA: 190 QRS: 87 T: 43 INTERPRETIVE STATEMENTS: Normal sinus rhythm Normal ECG Compared to ECG 06/22/2017 06:58:25 No significant changes Electronically Signed On 12-13-21 12:52:07 CDT by Alfie Do
== END 2021-12-12 20:47 | disposition home or self-care (01) ==
LOC: ER 14:50
DX: R07.9 Chest pain, unspecified (principal); M54.12 Radiculopathy, cervical region; I10 Essential (primary) hypertension; F17.210 Nicotine dependence, cigarettes, uncomplicated; I25.2 Old myocardial infarction; Z86.73 Personal history of transient ischemic attack (TIA), and cerebral infarction without residual deficits; Z95.818 Presence of other cardiac implants and grafts
CPT/HCPCS: 36415; 70450; 70551; 71045; 80048; 83880; 84145; 84484; 85025; 93005; 99284

== ENCOUNTER 2022-02-26 20:46 | Emergency (ER) | payer OTHER ==
[2022-02-26 21:23] LABS: Absolute Lymphocytes (CBC) 3.3 K/uL (0.7-4.9); MPV 6.9 fL (7.6-11.3); RBC Red Blood Cell Count 4.61 M/uL (3.86-4.86)
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
--- NOTE | 2022-02-26 21:31 | RAD REPORT ---
EXAM DESCRIPTION: Ida Single View02/26/2022 9:00 pm CLINICAL HISTORY: Chest pain COMPARISON: December 2021 FINDINGS: Lungs appear clear. Heart is normal size. Oblique lucency overlies the proximal to mid left humerus. This may represent artifact or fracture. X -rays of the left humerus recommended for further evaluation
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
[2022-02-26 21:37] LABS: Potassium 3.5 mmol/L (3.5-5.1); Troponin High Sensitivity 4.8 pg/mL (<58.9)
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
[2022-02-26 23:19] VITALS: TEMP 98
[2022-02-26 23:20] VITALS: BP 160/84; O2SAT 98
--- NOTE | 2022-02-27 08:14 | EKG ---
Test Date: 2022-02-26 Test Time: 20:49:53 [employer] Expeditor: MEASUREMENT RESULTS: Intervals: Rate: 102 NM: 158 QRSD: 80 QT: 364 QTc: 474 [place]: P: 53 NM: 158 QRS: 84 T: 66 INTERPRETIVE STATEMENTS: Sinus tachycardia Possible Left atrial enlargement Nonspecific ST abnormality Abnormal ECG Compared to ECG 12/12/2021 14:54:25 ST (T wave) deviation now present Sinus rhythm no longer present Electronically Signed On 02-27-22 08:12:29 CDT by Alfie Do
== END 2022-02-26 22:53 | disposition home or self-care (01) ==
LOC: ER 20:46
DX: S16.1XXA Strain of muscle, fascia and tendon at neck level, initial encounter (principal); S39.013A Strain of muscle, fascia and tendon of pelvis, initial encounter; Z72.0 Tobacco use; I10 Essential (primary) hypertension; I25.2 Old myocardial infarction; Z86.73 Personal history of transient ischemic attack (TIA), and cerebral infarction without residual deficits; Z95.818 Presence of other cardiac implants and grafts
CPT/HCPCS: 36415; 70450; 71045; 72125; 72170; 80048; 84484; 85025; 93005; 99284

== ENCOUNTER 2024-09-20 23:21 | Emergency (ER) | payer OTHER ==
--- OUTSIDE RECORDS SUMMARY | 2024-09-20 23:28 | XMS REPORT | Continuity of Care Document ---
Author Name Unknown Address [address] [facility] [address] [place] [address] [facility] Address [address] [facility] [address] [place] [address] Care Team Providers Care Brand Development Manager Name Role Phone Shane Edge Primary Care Physician [phone] BUDDY PRECIADO Attending Clinician Unavailable BUDDY PRECIADO Attending Clinician Unavailable ALLYN MICHAEL Attending Clinician Unava ilable BALAJI GARY Attending Clinician Unavailabl e Pcp-Lab Attending Clinician Unavailable Buddy Preciado MD Attending Clinician [phone] Allyn Michael DPM Attending Clinician + Balaji Gary MD Attending Clinician [phone] JONNATHAN PALUMBO Attending Clinician Unavailable JONNATHAN PALUMBO Attending Clinician Unavailable Jonnathan Palumbo MD Attending Clinician +[phone] STACIE CANSECO Attending Clinician Unavailable STACIE CANSECO Attending Clinician Unavailable Stacie Reynaga Attending Clinician Unavaila ble 1, [employer] Attending Clinician Na vailable MARIANGEL AARON Attending Clinician Unavailable Mariangel Aaron MD Attending Clinician [phone] Aaron Foster MD Attending Clinicia n Simone Baker MD Attending Clinician +[phone] SIMONE BAKER Attending Clinician Unavaila LILIANA Rudd Attending Clinician Unavailable LILIANA ROBERTSON Attending Clinician Unavailable Motility, Endoscopy Attending Clinician Unavaila GER Archer Attending Clinician Unavailable GER DEE Attending Clinician Unavailable Ger Dee MD Attending Clinician + Aaron Foster MD Attending Clinicia n Aung UMAÑA, Lexus Ruiz Attending Clinician YAMILETH SMILEY Attending Clinician Unavailab lisa Horan MD, Lexus Ruiz Attending Clinician Yamileth Smiley MD Attending Clinician [phone] Jeff Arreola MD Attending Clinician + [phone] ADRIANE ALEX Attending Clinician Unavailable Alexyue NG Adriane Attending Clinician + [phone] JEFF ARREOLA Attending Clinician Unavailable RADIOLOGY Attending Clinician Unavailable Radiology Attending Clinician Unavailable [facility] Attending Clinician Unavailable Simone Baker MD Attending Clinician +[phone] ESSIE TIAN Attending Clinician Unavailable Essie Tian MD Attending Clinician [phone] Sarah Hernandez Attending Clinician Unavail able Doctor Unassigned, [place] Attending Clinician U navailable MARILY TIRADO Attending Clinician Unavailable Marily Tirado MD Attending Clinician +[phone] JOHN MURRAY Attending Clinician Na GEOVANY Gomez Attending Clinician Unavailab BALAJI Cisneros Admitting Clinician UnavailGER Potts Admitting Clinician Unavailable Ger Dee MD Admitting Clinician + ESSIE TIAN Admitting Clinician Unavailable Essie Tian MD Admitting Clinician [phone] MACIEL RUEDA Admitting Clinician UnaTARA Paiz Admitting Clinician Unavailable GEOVANY CARRERA Admitting Clinician Unavailab le Payers Payer Name Policy Type Policy Number Effective Date Expirati on Date Source MEDICARE PART A \\T\\ B [id number] 2020 00:00:00 [id number] 2023 00:00:00 2025 00:00:00 [facility] (MEDICARE REPLACEMENT HMO) [id number] 2020 00:00:00 Problems Condition Name Condition Details Condition Category Status Onset Date Resolution Date Last Treatment Date Treating Clinician Comments Source Esophageal dysphagia Esophageal dysphagia Disease Active 01-15 00:00: 00 [facility] Colon cancer screening Colon cancer screening Disease Active 09-19 00:00: 00 [facility] Positive colorectal cancer screening using Cologuard test Positive colorectal cancer screening using Cologuard test Disease Active 09-19 00:00: 00 [facility] [id number] Acute right-side d low back pain with right-side d sciatica Problem [facility] Allergies, Adverse Reactions, Alerts Allergy Name Allergy Type Status Severity Reaction(s) Onset Date Inactive Date Treating Clinician Comments Source NO KNOWN ALLERGIE S Drug Class Active [facility] Social History Social Habit Start Date Stop Date Quantity Comments Source History of tobacco use Cigarette Smoker [facility] Gender identity [facility] Sexual orientation [facility] Sex Assigned At [facility] Alcoholic beverage intake 2024-08-17 00:00:00 2024-08-17 00:00:00 Current drinker of alcohol (finding) [facility] Alcohol intake 2023-11-08 00:00:00 2023-11-08 00:00:00 Current drinker of alcohol (finding) [facility] History of Social function 2023-11-07 00:00:00 2023-11-07 00:00:00 [facility] Tobacco use and exposure 2023-06-20 00:00:00 2023-06-20 00:00:00 Smokeless tobacco non-user [facility] Alcohol Comment 2023-06-20 00:00:00 2023-06-20 00:00:00 Social [facility] Exposure to SARS-CoV-2 (event) 2022-09-15 00:00:00 2022-09-25 11:26:00 Not sure [facility] Smoking Status Start Date Stop Date Source Tobacco smoking consumption unknown [facility] Occasional tobacco smoker 2023-06-20 00:00:00 [facility] Current Smoker 2022-11-06 00:00:00 [facility] Medications Ordered Medication Name Filled Medication Name Start Date Stop Date Current Medication? Ordering Clinician Indication Dosage Frequency Signature (SIG) Comments Components Source gabapentin 600 mg tablet 09-07 00:00: 00 Yes mg Regan Hedrick metoprolol succinate ER 50 mg tablet,exte nded release 24 hr 09-07 00:00: 00 Yes 1mg Regan Hedrick clopidogrel 75 mg tablet 09-07 00:00: 00 Yes 1mg Regan Hedrick isosorbide dinitrate 30 mg tablet 09-07 00:00: 00 Yes 1mg Regan Hedrick amlodipine 10 mg tablet 09-07 00:00: 00 Yes 1mg Regan Hedrick losartan 100 mg tablet 09-07 00:00: 00 Yes 1mg Regan Hedrick pantoprazol e 40 mg tablet,edilberto yed release 09-07 00:00: 00 Yes 1mg Regan Hedrick ondansetron HCl 8 mg tablet 09-07 00:00: 00 Yes 1mg Regan Hedrick atorvastati n 80 mg tablet 09-07 00:00: 00 Yes 1mg Regan Hedrick nitrofurant oin monohydrate /macrocryst als 100 mg capsule 09-07 00:00: 00 Yes 1mg Regan Hedrick clotrimazol e-betametha sone cream 08-18 00:00: 00 Yes [id number] Please apply only to bottom of feet daily. Bria coleman [facility] triamcinolo ne acetonide 0.1 % topical cream 08-18 00:00: 00 Yes 1% Regan Hedrick gabapentin 600 mg tablet 2023-08 00:00: 00 Yes mg Regna Hedrick triamcinolo ne acetonide 0.1 % topical cream 2023-08 00:00: 00 Yes 1% Regan Hedrick mupirocin 2 % topical ointment 2023-08 00:00: 00 Yes 1% Regan Hedrick metoprolol succinate ER 50 mg tablet,exte nded release 24 hr 2023-08 00:00: 00 Yes 1mg Regan Hedrick clopidogrel 75 mg tablet 2023-08 00:00: 00 Yes 1mg Regan Hedrick isosorbide dinitrate 30 mg tablet 2023-08 00:00: 00 Yes 1mg Regan Hedrick amlodipine 10 mg tablet 2023-08 00:00: 00 Yes 1mg Regan Hedrick losartan 100 mg tablet 2023-08 00:00: 00 Yes 1mg Regan Hedrick atorvastati n 80 mg tablet 2023-08 00:00: 00 Yes [id number] 80mg Take 1 tablet by mouth at bedtime. [facility] clopidogreL 75 mg tablet 2023-08 00:00: 00 Yes [id number] 75mg Take 1 tablet by mouth in the morning. [facility] foLIC acid 1 mg tablet 2023-08 00:00: 00 Yes [id number] 1mg Take 1 tablet by mouth in the morning. [facility] regadenoson (LEXISCAN) injection 0.4 mg 05-11 16:15: 00 05-11 15:24 :00 No [id number] .4mg 0.4 mg, Slow IV Push, ONCE, 1 dose, On Sat05/11/24 at 1115, Routine [facility] tc 99m-tetrofo smin (MYOVIEW) injection 41.9 millicurie 05-11 15:30: 00 05-11 15:25 :00 No [id number] 41.9mCi 41.9 millicurie , Intravenou s, ONCE, 1 dose, On Sat05/11/24 at 1030, Routine [facility] tc 99m-tetrofo smin (MYOVIEW) injection 15.3 millicurie 05-11 14:15: 00 05-11 14:12 :00 No [id number] 15.3mCi 15.3 millicurie , Gayleenou s, ONCE, 1 dose, On Sat05/11/24 at 0915, Routine [facility] atorvastati n 80 mg tablet 05-05 00:00: 00 06-02 00:00 :00 No [id number] 80mg Take 1 tablet by mouth at bedtime. [facility] clopidogreL 75 mg tablet 05-05 00:00: 00 06-02 00:00 :00 No [id number] 75mg Take 1 tablet by mouth in the morning. [facility] isosorbide dinitrate 30 mg tablet 04-08 00:00: 00 Yes 1mg Regan Hedrick pantoprazol e 40 mg tablet,edilberto yed release 04-08 00:00: 00 Yes 1mg Regan Hedrick pantoprazol e 40 mg EC tablet 04-07 00:00: 00 Yes [id number] 40mg Take 1 tablet by mouth in the morning and 1 tablet in the evening. [facility] ciclopirox 8 % solution 03-30 00:00: 00 Yes [id number] Apply to fungal toenails once daily. Every 7 days please file toenails with nail file and apply rubbing alcohol. [facility] mupirocin 2 % topical ointment 03-30 00:00: 00 Yes 1% Regan Hedrick gabapentin 300 mg capsule 03-30 00:00: 00 Yes 1mg Regan Hedrick clotrimazol e-betametha sone cream 03-30 00:00: 00 08-18 00:00 :00 No [id number] Please apply only to bottom of feet daily. [facility] Bromfed DM 2 mg-30 mg-10 mg/5 mL oral syrup 03-27 00:00: 00 Yes 5mg/5 mL Regan Hedrick gabapentin 600 mg tablet 03-19 00:00: 00 Yes mg Regan Hedrick mupirocin 2 % topical ointment 03-19 00:00: 00 Yes 1% Regan Hedrick atorvastati n 80 mg tablet 03-19 00:00: 00 Yes 1mg Regan Hedrick metoprolol succinate ER 50 mg tablet,exte nded release 24 hr 03-19 00:00: 00 Yes 1mg Regan Hedrick isosorbide dinitrate 30 mg tablet 03-19 00:00: 00 Yes 1mg Regan Hedrick amlodipine 10 mg tablet 03-19 00:00: 00 Yes 1mg Regan Hedrick losartan 100 mg tablet 03-19 00:00: 00 Yes 1mg Regan Hedrick cephalexin 500 mg tablet 03-19 00:00: 00 Yes 1mg Regan Hedrick gabapentin 300 mg capsule 03-19 00:00: 00 Yes 1mg Regan Hedrick bacteriosta tic saline 0.9 % injection 03-16 17:55: 00 03-16 20:07 :06 No PRN, Starting on Sat03/16/24 at 1255, Until Sat03/16/24 at 1507, Routine, Intra-op [facility] lidocaine 2% viscous (LIDOCAINE VISCOUS) 2 % solution 03-16 17:08: 00 03-16 20:07 :06 No PRN, Starting on Sat03/16/24 at 1208, Until Sat03/16/24 at 1507, Routine, Intra-op [facility] isosorbide dinitrate 30 mg tablet 03-05 00:00: 00 Yes 1mg Regan Hedrick amlodipine 10 mg tablet 03-05 00:00: 00 Yes 1mg Regan Hedrick folic acid 1 mg tablet 03-05 00:00: 00 Yes 1mg Regan Hedrick losartan 100 mg tablet 03-05 00:00: 00 Yes 1mg Regan Hedrick gabapentin 600 mg tablet 03-05 00:00: 00 Yes 1mg Regan Hedrick Sulfacetami de Sodium-Sulf ur 10-5 % (w/w) cleanser 02-27 00:00: 00 02-27 00:00 :00 No [id number] Apply to area(s) daily. [facility] azelaic acid 15%-metroni dazole 1%-ivermect in 1% cream 02-27 00:00: 00 02-27 00:00 :00 No [id number] Apply to area(s) daily. Apply to entire face. [facility] barium sulfate (E-Z DISK) tablet 700 mg 02-04 17:45: 00 02-04 16:15 :00 No [id number] 700mg 700 mg, Oral, ONCE, 1 dose, On Sat02/05/24 at 1245, Routine [facility] sod bicarb-citr ic ac-simeth (E-Z-GAS II) 2.21-1.53 gram/4 gram packet 1 Packet 02-04 17:00: 00 02-04 16:25 :00 No [id number] 1{packe t} 1 Packet, Oral, ONCE, 1 dose, On Sat02/05/24 at 1200, Routine [facility] barium sulfate (E-Z-HD BARIUM) 98 % oral suspension 120 mL 02-04 17:00: 00 02-04 16:45 :00 No [id number] 120mL 120 mL, Oral, ONCE, 1 dose, On Sat02/05/24 at 1200, Routine [facility] NITROFURANT OIN ORAL 01-15 08:11: 03 Yes 100mg Take 100 mg by mouth in the morning and 100 mg in the evening. 5 days for infection. [facility] venlafaxine XR 75 mg 24 hr capsule 01-15 08:08: 48 Yes 75mg Take 1 capsule by mouth in the morning. [facility] methocarbam oL 750 mg tablet 01-15 08:08: 48 Yes 750mg Take 1 tablet by mouth 4 (four) times daily. [facility] pantoprazol e 40 mg EC tablet 01-15 00:00: 00 04-07 00:00 :00 No [id number] 40mg Take 1 tablet by mouth in the morning and 1 tablet in the evening. [facility] amlodipine 10 mg tablet 01-13 00:00: 00 Yes mg Regan Hedrick pantoprazol e 40 mg tablet,edilberto yed release 01-01 00:00: 00 Yes 1mg Regan Hedrick Macrobid 100 mg capsule 01-01 00:00: 00 Yes 1mg Regan Hedrick gabapentin 600 mg tablet 11-12 00:00: 00 Yes mg Regan Hedrick pantoprazol e 40 mg EC tablet 11-11 00:00: 00 01-15 00:00 :00 No [id number] 40mg Take 1 tablet by mouth in the morning. [facility] simethicone (GAS RELIEF (SIMETHICON E)) 40 mg/0.6 mL drops 11-06 13:42: 00 Yes PRN, Starting on Kiah 11/07/23 at 0842, Until Discontinu ed, Routine, Intra-op [facility] venlafaxine XR 75 mg 24 hr capsule 11-06 10:05: 54 Yes 75mg Take 1 capsule by mouth in the morning. [facility] methocarbam oL 750 mg tablet 11-06 10:05: 54 Yes 750mg Take 1 tablet by mouth 4 (four) times daily. [facility] amlodipine 10 mg tablet 10-31 00:00: 00 Yes 1mg Regan Hedrick pantoprazol e 40 mg tablet,edilberto yed release 10-31 00:00: 00 Yes 1mg Regan Hedrick TAKE TWO (2) CAPSULES BY MOUTH DAILY WITH FOOD. 10-21 00:00: 00 Yes Regan Hedrick TAKE ONE (1) TABLET BY MOUTH 2 TIMES A DAY. 10-21 00:00: 00 Yes Regan Hedrick TAKE ONE (1) TABLET(S) BY MOUTH THREE TIMES A DAY. 10-21 00:00: 00 Yes Regan Hedrick TAKE ONE (1) TABLET(S) BY MOUTH ONCE A DAY. 10-21 00:00: 00 Yes Regan Hedrick barium sulfate-NO CHARGE- (VARIBAR NECTOR) 40 % (w/v) oral suspension 10 mL 10-13 16:00: 00 10-13 17:02 :00 No [id number] 10mL 10 mL, Oral, ONCE, 1 dose, On Sat10/14/23 at 1000, Routine [facility] TAKE ONE (1) TABLET(S) BY MOUTH TWICE A DAY. 10-13 00:00: 00 12-24 00:00 :00 No 600 Regan Hedrick PLEASE FOLLOW [facility] PREP INSTRUCTION S FOR COLONOSCOPY . 10-07 00:00: 00 Yes Regan Hedrick peg-electro lyte soln 236-22.74-6 .74 -5.86 gram solution 10-07 00:00: 00 10-08 05:59 :00 No Please follow [facility] prep instructio ns for colonoscop y. [facility] TAKE 4,000 ML BY MOUTH ONCE NOW FOR 1 DOSE. 09-19 00:00: 00 Yes Regan Hedrick peg-electro lyte soln 236-22.74-6 .74 -5.86 gram solution 09-19 00:00: 00 09-20 05:59 :00 No [id number] 4000mL Take 4,000 mL by mouth once now for 1 dose. [facility] TAKE ONE (1) TABLET(S) BY MOUTH AT BEDTIME. 09-09 00:00: 00 Yes Regan Hedrick TAKE 1 TABLET TWICE DAILY. 08-22 00:00: 00 12-24 00:00 :00 No 750 Regan Hedrick amLODIPine 5 mg tablet 08-16 00:00: 00 Yes TAKE ONE (1) TABLET(S) BY MOUTH DAILY FOR 2 WEEKS, INCREASE TO TWO TABLETS DAILY. [facility] TAKE 1 TABLET DAILY. 2022-08 00:00: 00 Yes 100 Regan Hedrick TAKE 1 TABLET DAILY. 2022-08 00:00: 00 Yes 40 Regan Hedrick TAKE 1 TABLET DAILY. 2022-08 00:00: 00 Yes 100 Regan Hedrick TAKE ONE TAB DAILY 2022-08 00:00: 00 Yes 30 Regan Hedrick TAKE ONE TABLET DAILY FOR 2 WEEKS, INCREASE TO TWO TABLETS DAILY. 2022-08 00:00: 00 12-24 00:00 :00 No 5 Regan Hedrick TAKE 1 CAPSULE AT BEDTIME. 2022-08 00:00: 00 12-24 00:00 :00 No 300 Regan Hedrick TAKE ONE (1) TABLET(S) BY MOUTH TWICE A DAY. 2022-08 00:00: 00 12-24 00:00 :00 No 600 Regan Hedrick TAKE 1 TABLET TWICE DAILY. 2022-08 00:00: 00 12-24 00:00 :00 No 750 Regan Hedrick ARIPiprazol e 20 mg tablet 2022-08 00:00: 00 Yes 20mg Take 1 tablet by mouth in the morning. [facility] TAKE 1 TABLET BY MOUTH TWICE DAILY 2022-08 00:00: 00 Yes Regan Hedrick TAKE ONE (1) TABLET(S) BY MOUTH ONCE A DAY. 2022-08 00:00: 00 12-24 00:00 :00 No Regan Hedrick TAKE TWO (2) CAPSULE(S) BY MOUTH ONCE A DAY WITH FOOD. 2022-08 00:00: 00 12-24 00:00 :00 No Regan Hedrick TAKE ONE (1) TABLET(S) BY MOUTH THREE TIMES A DAY. 2022-08 00:00: 00 12-24 00:00 :00 No Regan Hedrick TAKE ONE (1) TABLET(S) BY MOUTH DAILY. 2022-08 00:00: 00 12-24 00:00 :00 No Regan Hedrick methocarbam oL 750 mg tablet 2022-08 07:34: 25 Yes 750mg Take 1 tablet by mouth 4 (four) times daily. [facility] venlafaxine XR 75 mg 24 hr capsule 2022-08 07:33: 14 Yes 75mg Take 1 capsule by mouth in the morning. [facility] TAKE ONE (1) TABLET(S) BY MOUTH EVERY MORNING. 2022-08 00:00: 00 12-24 00:00 :00 No Regan Hedrick pantoprazol e 40 mg EC tablet 2022-08 00:00: 00 11-11 00:00 :00 No [id number] 40mg Take 1 tablet by mouth in the morning. [facility] TAKE ONE (1) TABLET(S) BY MOUTH DAILY NEEDED. 2022-08 00:00: 00 12-24 00:00 :00 No 75 Regan Hedrick TAKE 1 CAPSULE AT BEDTIME. 2022-08 00:00: 00 12-24 00:00 :00 No 300 Regan Hedrick TAKE ONE (1) TABLET(S) BY MOUTH TWICE A DAY. 2022-08 00:00: 00 12-24 00:00 :00 No Reagn Hedrick TAKE 1 TABLET EVERY 4 TO 6 HOURS NEEDED. 2022-08 00:00: 00 12-24 00:00 :00 No 500 Regan Hedrick TAKE 1 TABLET DAILY. 2022-08 00:00: 00 Yes 100 Regan Hedrick TAKE ONE TAB DAILY 2022-08 00:00: 00 Yes 30 Regan Mandi Hedrick APPLY SPARINGLY TO AFFECTED AREA(S) 3 TIMES A DAY 2022-08 00:00: 00 12-24 00:00 :00 No 1 Regan Hedrick TAKE 1 TABLET DAILY. 2022-08 00:00: 00 12-24 00:00 :00 No 40 Regananjali Hedrick TAKE ONE (1) TABLET(S) BY MOUTH TWICE A DAY. 2022-0811 00:00: 00 12-24 00:00 :00 No 600 Regan Hedrick TAKE 1 TABLET TWICE DAILY. 2022-08 00:00: 00 12-24 00:00 :00 No 750 Regan Hedrick TAKE ONE (1) TABLET(S) BY MOUTH ONCE A DAY. 04-24 00:00: 00 12-24 00:00 :00 No Regananajli Hedrick TAKE ONE (1) TABLET(S) BY MOUTH TWICE A DAY. 04-24 00:00: 00 12-24 00:00 :00 No Regan Hedrick TAKE TWO (2) CAPSULE(S) BY MOUTH ONCE A DAY WITH FOOD. 04-24 00:00: 00 12-24 00:00 :00 No Regan Mandi Hedrick TAKE ONE (1) TABLET(S) BY MOUTH THREE TIMES A DAY. 04-24 00:00: 00 12-24 00:00 :00 No Regan Mandi Hedrick TAKE 1 TABLET TWICE DAILY. 04-10 00:00: 00 12-24 00:00 :00 No 600 Regan Hedrick TAKE 1 TABLET TWICE DAILY. 04-10 00:00: 00 12-24 00:00 :00 No 750 Regan Hedrick TAKE 1 TABLET DAILY NEEDED. 04-10 00:00: 00 12-24 00:00 :00 No 75 Regan Hedrick TAKE 1 TABLET DAILY. 03-05 00:00: 00 12-24 00:00 :00 No 40 Regananjali Hedrick TAKE 1 TABLET DAILY. 03-05 00:00: 00 12-24 00:00 :00 No 100 Regan Hedrick TAKE ONE TAB DAILY 03-05 00:00: 00 12-24 00:00 :00 No 30 Regan Mandi Hedrick TAKE ONE (1) TABLET(S) BY MOUTH DAILY. 03-05 00:00: 00 12-24 00:00 :00 No Regan Mandi Hedrick venlafaxine XR 75 mg 24 hr capsule 02-26 16:42: 55 Yes 75mg Take 1 capsule by mouth in the morning. [facility] Take 1 tablet daily 02-05 00:00: 00 12-24 00:00 :00 No 50 Regananjali Hedrick Take 1 tablet at daily. 02-05 00:00: 00 12-24 00:00 :[address] 1 TABLET UNDER THE TONGUE EVERY 5 MINUTES FOR UP TO 3 DOSES NEEDED FOR CHEST PAIN.CALL 911 IF PAIN PERSISTS. 02-05 00:00: 00 12-24 00:00 :00 No 4 Regan Hedrick TAKE 1 TABLET DAILY. 02-05 00:00: 00 12-24 00:00 :00 No 50 Regan Hedrick TAKE ONE TAB DAILY 02-05 00:00: 00 12-24 00:00 :00 No 30 Regan Hedrick TAKE ONE (1) TABLET(S) BY MOUTH THREE TIMES A DAY. 01-22 00:00: 00 12-24 00:00 :00 Shara Hedrick TAKE ONE (1) TABLET (15 MG) BY MOUTH DAILY. 01-22 00:00: 00 12-24 00:00 :00 Shara Hedrick TAKE ONE (1) TABLET (400 MG) BY MOUTH 2 TIMES PER DAY. 01-22 00:00: 00 12-24 00:00 :00 Shara Hedrick TAKE TWO (2) CAPSULES (300 MG) BY MOUTH DAILY WITH FOOD. 01-22 00:00: 00 12-24 00:00 :00 Shara Hedrick TAKE ONE (1) TABLET(S) BY MOUTH ONCE A DAY. 12-19 00:00: 00 12-24 00:00 :00 Shara Hedrick TAKE ONE (1) TABLET(S) BY MOUTH ONCE A DAY. 12-19 00:00: 00 12-24 00:00 :00 Shara Hedrick TAKE 1 TABLET EVERY 6 TO 8 HOURS NEEDED. - 00:00: 00 12-24 00:00 :00 Shara 800 Regan Hedrick TAKE ONE (1) CAPSULE(S) BY MOUTH THREE TIMES A DAY. - 00:00: 00 12-24 00:00 :00 Shara Regan Mandi Ryley Ibuprofen 600 MG Ibuprofen 600 MG 11-05 00:00: 00 No TID Ibuprofen 600 MG Gabapentin 100 MG Gabapentin 100 MG 3 00:00: 00 No 1{capsu le} TID Gabapentin 100 MG Ibuprofen 600 MG Ibuprofen 600 MG 11-05 00:00: 00 No TID Ibuprofen 600 MG Gabapentin 100 MG Gabapentin 100 MG 11-05 00:00: 00 No 1{capsu le} TID Gabapentin 100 MG TAKE ONE (1) CAPSULE(S) BY MOUTH THREE TIMES A DAY. 11-05 00:00: 00 12-24 00:00 :00 No Regan Hedrick TAKE ONE (1) TABLET(S) BY MOUTH THREE TIMES A DAY. 11-01 00:00: 00 12-24 00:00 :00 No Regan Hedrick TAKE ONE (1) TABLET(S) BY MOUTH ONCE A DAY. 11-01 00:00: 00 12-24 00:00 :00 No Regan Hedrick TAKE 1 TABLET EVERY 6 TO 8 HOURS NEEDED. 3 00:00: 00 12-24 00:00 :00 No 800 Regan Hedrick TAKE 1 CAPSULE EVERY 8 HOURS DAILY. 3 00:00: 00 12-24 00:00 :00 No 100 Regan Hedrick TAKE 1 TABLET EVERY 6 TO 8 HOURS NEEDED. 22 00:00: 00 12-24 00:00 :00 No 800 Regan Hedrick TAKE 1 TABLET DAILY NEEDED. 2-14 00:00: 00 12-24 00:00 :00 No 75 Regan Hedrick TAKE TWO (2) CAPSULES (300 MG) BY MOUTH DAILY WITH FOOD. - 00:00: 00 12-24 00:00 :00 No Regan Raymond Ryley TAKE ONE (1) TABLET (15 MG) BY MOUTH DAILY. - 00:00: 00 12-24 00:00 :00 No Regan Hedrick TAKE ONE (1) TABLET (400 MG) BY MOUTH 2 TIMES PER DAY. 09-06 00:00: 00 12-24 00:00 :00 No Regan Mandi Hedrick TAKE 10ML EVERY 6-8HRS -17 00:00: 00 12-24 00:00 :00 No [id number] Regan F Ryley TAKE ONE (1) TABLET(S) BY MOUTH ONCE A DAY. 2021-08 00:00: 00 12-24 00:00 :00 No 75 Regan F Ryley TAKE TWO (2) CAPSULE(S) BY MOUTH DAILY WITH FOOD. 2021-08 00:00: 00 12-24 00:00 :00 No 150 Regan F Ryley TAKE ONE (1) TABLET(S) BY MOUTH THREE TIMES A DAY IF NEEDED FOR MUSCLE SPASMS. 2021-08 00:00: 00 12-24 00:00 :00 No 10 Regan F Ryley TAKE 1 TABLET BY MOUTH THREE TIMES DAILY 2021-08 00:00: 00 12-24 00:00 :00 No 2 Regan Mandi Hedrick TAKE ONE (1) TABLET(S) BY MOUTH IN THE MORNING. 2021-08 00:00: 00 12-24 00:00 :00 No 100 Regan F Ryley TAKE ONE (1) TABLET(S) BY MOUTH DAILY. 2021-08 00:00: 00 12-24 00:00 :00 No 10 Regan F Ryley Dose Unknown 2021-08 00:00: 00 12-24 00:00 :00 No Regan F Ryley Dose Unknown 2021-08 00:00: 00 12-24 00:00 :00 No Regan F Ryley TAKE ONE (1) TABLET(S) BY MOUTH TWICE A DAY. 2021-08 00:00: 00 12-24 00:00 :00 No 150 Regan F Ryley Dose Unknown 2021-08 00:00: 00 12-24 00:00 :00 No Regan F Ryley TAKE ONE (1) TABLET(S) BY MOUTH DAILY AT BEDTIME. 2021-08 00:00: 00 12-24 00:00 :00 No 400 Regan F Ryley TAKE ONE (1) TABLET(S) BY MOUTH THREE TIMES A DAY. 2021-08 2 00:00: 00 12-24 00:00 :00 No 10 Regan Mandi Hedrick TAKE 1 CAPSULE 3 TIMES DAILY. 2021-08 00:00: 00 12-24 00:00 :00 No 100 Regan F Ryley Dose Unknown 2021-08 00:00: 00 12-24 00:00 :00 No Regan F Ryley TAKE ONE (1) TABLET(S) BY MOUTH ONCE A DAY. 2021-08 00:00: 00 12-24 00:00 :00 No 75 Regan F Ryley TAKE 1 TABLET DAILY. 2021-08 00:00: 00 12-24 00:00 :00 No [address] 1 TABLET UNDER THE TONGUE EVERY 5 MINUTES FOR UP TO 3 DOSES NEEDED FOR CHEST PAIN.CALL 911 IF PAIN PERSISTS. 2021-08 00:00: 00 12-24 00:00 :00 No 4 Regan F Ryley Dose Unknown 2021-08 00:00: 00 12-24 00:00 :00 No Regan F Ryley TAKE ONE (1) TABLET(S) BY MOUTH TWICE A DAY. 2021-08 00:00: 00 12-24 00:00 :00 No 200 Regan F Ryley Dose Unknown 2021-08 00:00: 00 12-24 00:00 :00 No Regan F Ryley Dose Unknown 2021-08 00:00: 00 12-24 00:00 :00 No Regan F Ryley TAKE THREE (3) CAPSULE(S) BY MOUTH EVERY MORNING. 2021-08 00:00: 00 12-24 00:00 :00 No 75 Regan F Ryley TAKE ONE (1) TABLET(S) BY MOUTH ONCE A DAY. 2021-08 00:00: 00 12-24 00:00 :00 No 5 Regan F Ryley TAKE ONE (1) CAPSULE(S) BY MOUTH EVERY EIGHT HOURS FOR 10 DAYS. 2021-08 00:00: 00 12-24 00:00 :00 No 500 Regan F Ryley TAKE ONE-HALF TO ONE (1/2 TO 1) TABLET(S) BY MOUTH EVERY MORNING . TAKE TWO (2) TABLETS BY MOUTH AT BEDTIME. 2021-08 00:00: 00 12-24 00:00 :00 No 100 Regan Hedrick Dose Unknown 2021-08 00:00: 00 12-24 00:00 :00 No Regan Hedrick TAKE ONE (1) TABLET(S) BY MOUTH EVERY EIGHT HOURS NEEDED FOR PAIN WITH FOOD AND WATER. 2021-08 00:00: 00 12-24 00:00 :00 No 800 Regan Hedrick TAKE 1 TABLET DAILY NEEDED. 2021-08 00:00: 00 12-24 00:00 :00 No 75 Regan Hedrick TAKE ONE TAB DAILY 2021-08 00:00: 00 12-24 00:00 :00 No 30 Regan Hedrick TAKE 1 CAPSULE 3 TIMES DAILY. 2021-08 00:00: 00 12-24 00:00 :00 No 300 Regan Hedrick TAKE ONE (1) TABLET(S) BY MOUTH TWICE A DAY. 2021-08 00:00: 00 12-24 00:00 :00 No Regan Hedrick TAKE ONE (1) TABLET(S) BY MOUTH ONCE A DAY. 2021-08 00:00: 00 12-24 00:00 :00 No Regan Hedrick TAKE ONE (1) TABLET(S) BY MOUTH THREE TIMES A DAY. 2021-08 00:00: 00 12-24 00:00 :00 No Regan Hedrick TAKE ONE (1) TABLET(S) BY MOUTH ONCE A DAY. 04-11 00:00: 00 Yes Regan Raymond Ryley isosorbide dinitrate 30 mg tablet 03-29 00:00: 00 Yes 30mg Take 1 tablet by mouth in the morning. [facility] TAKE ONE (1) TABLET(S) BY MOUTH ONCE A DAY. 03-29 00:00: 00 12-24 00:00 :00 No Regan Hedrick TAKE TWO (2) CAPSULE(S) BY MOUTH DAILY WITH FOOD. 03-07 00:00: 00 12-24 00:00 :00 No Regan Hedrick TAKE ONE (1) TABLET(S) BY MOUTH TWICE A DAY. 03-07 00:00: 00 12-24 00:00 :00 No Regan Hedrick losartan 100 mg tablet 02-26 00:00: 00 Yes 100mg Take 1 tablet by mouth every morning. [facility] TAKE ONE (1) TABLET(S) BY MOUTH ONCE A DAY (DO NOT CRUSH OR CHEW). 02-26 00:00: 00 12-24 00:00 :00 No Regan Hedrick meloxicam 7.5 mg tablet 02-23 00:00: 00 Yes 7.5mg Take 1 tablet by mouth in the morning. [facility] TAKE ONE (1) TABLET(S) BY MOUTH ONCE A DAY. 02-23 00:00: 00 12-24 00:00 :00 Shara Hedrick TAKE ONE AND ONE-HALF (1 AND 1/2) TABLET(S) BY MOUTH TWICE A DAY. 01-03 00:00: 00 12-24 00:00 :00 No Regan Hedrick atorvastati n 80 mg tablet 12-07 00:00: 00 Yes 1mg Regan Hedrick clopidogrel 75 mg tablet 12-07 00:00: 00 Yes 1mg Regan Hedrick isosorbide dinitrate 30 mg tablet 12-07 00:00: 00 Yes 1mg Regan Hedrick losartan 100 mg tablet 12-07 00:00: 00 Yes 1mg Regan Hedrick meloxicam 7.5 mg tablet 12-07 00:00: 00 Yes 1mg Regan Hedrick metoprolol succinate ER 50 mg tablet,exte nded release 24 hr 12-07 00:00: 00 Yes 1mg Regan Hedrick trifluopera zine 5 mg tablet 12-07 00:00: 00 Yes 1mg Regan Hedrick quetiapine 100 mg tablet 12-07 00:00: 00 Yes 1mg Regan Hedrick cyclobenzap rine 10 mg tablet 12-07 00:00: 00 Yes 1mg Regan Hedrick diazepam 10 mg tablet 12-07 00:00: 00 Yes 1mg Regan Hedrick oxcarbazepi ne 300 mg tablet 12-07 00:00: 00 Yes 1mg Regan Hedrick promethazin e 25 mg tablet 12-07 00:00: 00 Yes 1mg Regan Hedrick lamotrigine 100 mg tablet 12-07 00:00: 00 Yes 2mg Regan Hedrick Dose Unknown 12-07 00:00: 00 Yes Regan Hedrick TAKE ONE (1) TABLET(S) BY MOUTH TWICE A DAY. 12-07 00:00: 00 12-24 00:00 :00 No Regan Hedrick clopidogreL 75 mg tablet 11-27 00:00: 00 05-05 00:00 :00 No 75mg Take 1 tablet by mouth. [facility] TAKE ONE (1) TABLET(S) BY MOUTH ONCE A DAY. 11-14 00:00: 00 12-24 00:00 :00 No Regan Hedrick TAKE ONE (1) TABLET(S) BY MOUTH THREE TIMES A DAY. 11-06 00:00: 00 12-24 00:00 :00 No Regan Hedrick cyclobenzap rine 10 mg tablet 09-22 00:00: 00 Yes 10mg Take 1 tablet by mouth. [facility] gabapentin 300 mg capsule 09-22 00:00: 00 Yes 1 tablet in am, 1 tablet at noon, 1 tablet at 5pm and 2 tablets at bedtime [facility] No known medications 2018-08 11:00: 10 No No known medication s [facility] QUEtiapine Fumarate QUEtiapine Fumarate No QUEtiapine Fumarate ARIPiprazol e 10 MG ARIPiprazol e 10 MG No 1{table t} QD ARIPiprazo le 10 MG QUEtiapine Fumarate QUEtiapine Fumarate No QUEtiapine Fumarate ARIPiprazol e 10 MG ARIPiprazol e 10 MG No 1{table t} QD ARIPiprazo le 10 MG Immunizations Ordered Immunization Name Filled Immunization Name Date Status Comments Source SHINGRIX VACCINE SHINGRIX VACCINE 2024-09-07 00:00:00 Completed Regan Hedrick Prevnar 20 Prevnar 20 2024-09-07 00:00:00 Completed Regan Mandi Hedrick influenza, seasonal vaccine, quadrivalent, adjuvanted, .5mL dose, preservative-free influenza, seasonal vaccine, quadrivalent, adjuvanted, .5mL dose, preservative-free 2024-09-07 00:00:00 Completed Regan Mandi Ryley Influenza Virus Vaccine - Whole 2021-05-15 00:00:00 Completed [facility] Influenza Virus Vaccine - Whole 2021-05-15 00:00:00 Completed [facility] Influenza Virus Vaccine - Whole 2021-05-15 00:00:00 Completed [facility] Influenza Virus Vaccine - Whole 2021-05-15 00:00:00 Completed [facility] Influenza Virus Vaccine - Whole 2021-05-15 00:00:00 Completed [facility] Influenza Virus Vaccine - Whole 2021-05-15 00:00:00 Completed [facility] Influenza Virus Vaccine - Whole 2021-05-15 00:00:00 Completed [facility] Influenza, seasonal, inj Influenza, seasonal, inj 2021-05-15 00:00:00 Completed Regan Hedrick Influenza, seasonal, inj Influenza, seasonal, inj 2021-05-15 00:00:00 Completed Regan Hedrick Influenza Virus Vaccine - Whole Unknown Completed [facility] Influenza Virus Vaccine - Whole Unknown Completed [facility] Influenza Virus Vaccine - Whole Unknown Completed [facility] Influenza Virus Vaccine - Whole Unknown Completed [facility] Influenza Virus Vaccine - Whole Unknown Completed [facility] Influenza Virus Vaccine - Whole Unknown Completed [facility] Influenza Virus Vaccine - Whole Unknown Completed [facility] Influenza Virus Vaccine - Whole Unknown Completed [facility] Influenza Virus Vaccine - Whole Unknown Completed [facility] Influenza Virus Vaccine - Whole Unknown Completed [facility] Influenza Virus Vaccine - Whole Unknown Completed [facility] Influenza Virus Vaccine - Whole Unknown Completed [facility] Influenza Virus Vaccine - Whole Unknown Completed [facility] Influenza Virus Vaccine - Whole Unknown Completed [facility] Influenza Virus Vaccine - Whole Unknown Completed [facility] Influenza Virus Vaccine - Whole Unknown Completed [facility] Influenza Virus Vaccine - Whole Unknown Completed [facility] Influenza Virus Vaccine - Whole Unknown Completed [facility] Influenza Virus Vaccine - Whole Unknown Completed [facility] Influenza Virus Vaccine - Whole Unknown Completed [facility] Influenza Virus Vaccine - Whole Unknown Completed [facility] Influenza Virus Vaccine - Whole Unknown Completed [facility] Influenza Virus Vaccine - Whole Unknown Completed [facility] Influenza Virus Vaccine - Whole Unknown Completed [facility] Influenza Virus Vaccine - Whole Unknown Completed [facility] Influenza Virus Vaccine - Whole Unknown Completed [facility] Influenza Virus Vaccine - Whole Unknown Completed [facility] Influenza Virus Vaccine - Whole Unknown Completed [facility] Influenza Virus Vaccine - Whole Unknown Completed [facility] Influenza Virus Vaccine - Whole Unknown Completed [facility] Influenza Virus Vaccine - Whole Unknown Completed [facility] Influenza Virus Vaccine - Whole Unknown Completed [facility] Influenza Virus Vaccine - Whole Unknown Completed [facility] Influenza Virus Vaccine - Whole Unknown Completed [facility] Influenza Virus Vaccine - Whole Unknown Completed [facility] Influenza Virus Vaccine - Whole Unknown Completed [facility] Influenza Virus Vaccine - Whole Unknown Completed [facility] Vital Signs Vital Name Observation Time Observation Value Comments S ource Systolic blood pressure 2024-09-15 15:30:00 107 mm[Hg] [facility] Diastolic blood pressure 2024-09-15 15:30:00 67 mm[Hg] [facility] Heart rate 2024-09-15 15:30:00 65 /min [facility] Body temperature 2024-09-15 15:30:00 35.89 Danette [facility] Body height 2024-09-15 15:30:00 149.9 cm [facility] Body weight 2024-09-15 15:30:00 58.922 kg [facility] BMI 2024-09-15 15:30:00 26.24 kg/m2 [facility] Oxygen saturation in Arterial blood by Pulse oximetry 2024-09-15 15:30:00 99 /min [facility] Body weight 2024-08-17 14:16:00 59.557 kg [facility] BMI 2024-08-17 14:16:00 26.52 kg/m2 [facility] Body temperature 2024-07-02 19:28:00 36.44 Danette [facility] Body height 2024-07-02 19:28:00 149.9 cm [facility] Body weight 2024-07-02 19:28:00 61.1 kg [facility] BMI 2024-07-02 19:28:00 27.21 kg/m2 [facility] Body temperature 2024-06-26 14:29:00 36.72 Danette [facility] Body height 2024-06-26 14:29:00 149.9 cm [facility] Body weight 2024-06-26 14:29:00 62.052 kg [facility] BMI 2024-06-26 14:29:00 27.63 kg/m2 [facility] Systolic blood pressure 2024-06-02 18:54:00 131 mm[Hg] [facility] Diastolic blood pressure 2024-06-02 18:54:00 77 mm[Hg] [facility] Heart rate 2024-06-02 18:54:00 86 /min [facility] Body temperature 2024-06-02 18:54:00 36.39 Danette [facility] Respiratory rate 2024-06-02 18:54:00 18 /min [facility] Body height 2024-06-02 18:54:00 149.9 cm [facility] Body weight 2024-06-02 18:54:00 61.825 kg [facility] BMI 2024-06-02 18:54:00 27.53 kg/m2 [facility] Oxygen saturation in Arterial blood by Pulse oximetry 2024-06-02 18:54:00 96 /min Room Air [facility] Systolic blood pressure 2024-05-05 14:01:00 119 mm[Hg] [facility] Diastolic blood pressure 2024-05-05 14:01:00 78 mm[Hg] [facility] Heart rate 2024-05-05 14:01:00 62 /min [facility] Body temperature 2024-05-05 14:01:00 36.17 Danette [facility] Body height 2024-05-05 14:01:00 149.9 cm [facility] Body weight 2024-05-05 14:01:00 64.048 kg [facility] BMI 2024-05-05 14:01:00 28.52 kg/m2 [facility] Oxygen saturation in Arterial blood by Pulse oximetry 2024-05-05 14:01:00 97 /min [facility] Systolic blood pressure 2024-04-20 17:58:00 124 mm[Hg] [facility] Diastolic blood pressure 2024-04-20 17:58:00 83 mm[Hg] [facility] Heart rate 2024-04-20 17:58:00 75 /min [facility] Body temperature 2024-04-20 17:58:00 36.39 Danette [facility] Body height 2024-04-20 17:58:00 149.9 cm [facility] Body weight 2024-04-20 17:58:00 66.18 kg [facility] BMI 2024-04-20 17:58:00 29.47 kg/m2 [facility] Oxygen saturation in Arterial blood by Pulse oximetry 2024-04-20 17:58:00 97 /min [facility] Body temperature 2024-03-30 13:25:00 35.5 Danette [facility] Body weight 2024-03-30 13:25:00 64.093 kg [facility] BMI 2024-03-30 13:25:00 28.54 kg/m2 [facility] Body temperature 2024-03-26 21:05:00 35.78 Danette [facility] Body weight 2024-03-26 21:05:00 63.957 kg [facility] BMI 2024-03-26 21:05:00 28.48 kg/m2 [facility] Body weight 2024-02-05 18:44:00 67.586 kg [facility] BMI 2024-02-05 18:44:00 30.09 kg/m2 [facility] Systolic blood pressure 2024-01-16 13:13:00 92 mm[Hg] [facility] Diastolic blood pressure 2024-01-16 13:13:00 67 mm[Hg] [facility] Heart rate 2024-01-16 13:11:00 73 /min [facility] Body temperature 2024-01-16 13:11:00 36.11 Danette [facility] Respiratory rate 2024-01-16 13:11:00 13 /min [facility] Body height 2024-01-16 13:11:00 149.9 cm [facility] Body weight 2024-01-16 13:11:00 67.858 kg [facility] BMI 2024-01-16 13:11:00 30.22 kg/m2 [facility] Oxygen saturation in Arterial blood by Pulse oximetry 2024-01-16 13:11:00 98 /min [facility] Systolic blood pressure 2023-11-07 14:41:00 180 mm[Hg] Did not take any blood pressure medication [facility] Diastolic blood pressure 2023-11-07 14:41:00 92 mm[Hg] Did not take any blood pressure medication [facility] Heart rate 2023-11-07 14:41:00 72 /min [facility] Respiratory rate 2023-11-07 14:41:00 24 /min [facility] Oxygen saturation in Arterial blood by Pulse oximetry 2023-11-07 14:41:00 98 /min [facility] Body temperature 2023-11-07 14:13:00 35.61 Danette [facility] Body height 2023-11-07 12:24:00 149.9 cm [facility] Body weight 2023-11-07 12:24:00 67.178 kg [facility] BMI 2023-11-07 12:24:00 29.91 kg/m2 [facility] Systolic blood pressure 2023-11-07 12:24:00 165 mm[Hg] [facility] Diastolic blood pressure 2023-11-07 12:24:00 92 mm[Hg] [facility] Heart rate 2023-11-07 12:24:00 80 /min [facility] Body temperature 2023-11-07 12:24:00 36.33 Danette [facility] Respiratory rate 2023-11-07 12:24:00 14 /min [facility] Body height 2023-11-07 12:24:00 149.9 cm [facility] Body weight 2023-11-07 12:24:00 67.178 kg [facility] BMI 2023-11-07 12:24:00 29.91 kg/m2 [facility] Oxygen saturation in Arterial blood by Pulse oximetry 2023-11-07 12:24:00 99 /min [facility] Systolic blood pressure 2023-09-19 13:50:00 112 mm[Hg] [facility] Diastolic blood pressure 2023-09-19 13:50:00 71 mm[Hg] [facility] Heart rate 2023-09-19 13:50:00 71 /min [facility] Body temperature 2023-09-19 13:50:00 35.61 Danette [facility] Respiratory rate 2023-09-19 13:50:00 16 /min [facility] Body height 2023-09-19 13:50:00 149.9 cm [facility] Body weight 2023-09-19 13:50:00 68.992 kg [facility] BMI 2023-09-19 13:50:00 30.72 kg/m2 [facility] Oxygen saturation in Arterial blood by Pulse oximetry 2023-09-19 13:50:00 97 /min room air [facility] Systolic blood pressure 2023-06-20 13:34:00 154 mm[Hg] Dr. Foster notified [facility] Diastolic blood pressure 2023-06-20 13:34:00 91 mm[Hg] Dr. Foster notified [facility] Heart rate 2023-06-20 13:34:00 75 /min [facility] Body temperature 2023-06-20 13:31:00 36 Danette [facility] Respiratory rate 2023-06-20 13:31:00 18 /min [facility] Body height 2023-06-20 13:31:00 149.9 cm [facility] Body weight 2023-06-20 13:31:00 68.992 kg [facility] BMI 2023-06-20 13:31:00 30.72 kg/m2 [facility] Oxygen saturation in Arterial blood by Pulse oximetry 2023-06-20 13:31:00 100 /min [facility] height 2022-11-05 09:30:00 59 [in_i] [facility] weight 2022-11-05 09:30:00 154.2 [lb_av] [facility] bmi 2022-11-05 09:30:00 31.14 kg/m2 [facility] blood pressure systolic 2022-11-05 09:30:00 127 mm[Hg] [facility] blood pressure diastolic 2022-11-05 09:30:00 76 mm[Hg] [facility] BP Systolic 2024-09-07 09:44:00 99 mm[Hg] Regan Hedrick BP Diastolic 2024-09-07 09:44:00 64 mm[Hg] Regan Hedrick Weight Measured 2024-09-07 09:44:00 129.40 pounds Regan Hedrick Height Measured 2024-09-07 09:44:00 60.00 inches Regan Hedrick Body Temperature 2024-09-07 09:44:00 98.40 degrees Regan Hedrick Heart Rate 2024-09-07 09:44:00 68.00 /min Regan Hedrick Respiratory Rate 2024-09-07 09:44:00 18.00 /min Regan Hedrick BP Systolic 2024-06-16 09:02:00 112 mm[Hg] Regan Mandi Hedrick BP Diastolic 2024-06-16 09:02:00 69 mm[Hg] Regan Hedrick Weight Measured 2024-06-16 09:02:00 136.60 pounds Regan Hedrick Height Measured 2024-06-16 09:02:00 60.00 inches Regan Hedrick Body Temperature 2024-06-16 09:02:00 98.00 degrees Regan Hedrick Heart Rate 2024-06-16 09:02:00 73.00 /min Regan F Ryley Respiratory Rate 2024-06-16 09:02:00 18.00 /min Regan F Ryley BP Systolic 2024-03-19 08:38:00 126 mm[Hg] Regan F Ryley BP Diastolic 2024-03-19 08:38:00 84 mm[Hg] Regan F Ryley Weight Measured 2024-03-19 08:38:00 141.60 pounds Regan F Ryley Height Measured 2024-03-19 08:38:00 60.00 inches Regan F Ryley Body Temperature 2024-03-19 08:38:00 97.50 degrees Regan F Ryley Heart Rate 2024-03-19 08:38:00 79.00 /min Regan F Ryley Respiratory Rate 2024-03-19 08:38:00 18.00 /min Regan F Ryley BP Systolic 2024-03-05 09:56:00 152 mm[Hg] Regan F Ryley BP Diastolic 2024-03-05 09:56:00 87 mm[Hg] Regan F Ryley Weight Measured 2024-03-05 09:56:00 145.00 pounds Regan F Ryley Height Measured 2024-03-05 09:56:00 60.00 inches Regan F Ryley Body Temperature 2024-03-05 09:56:00 98.00 degrees Regan F Ryley Heart Rate 2024-03-05 09:56:00 80.00 /min Regan F Ryley Respiratory Rate 2024-03-05 09:56:00 18.00 /min Regan F Ryley BP Systolic 2024-01-28 10:48:00 155 mm[Hg] Regan F Ryley BP Diastolic 2024-01-28 10:48:00 73 mm[Hg] Regan F Ryley Weight Measured 2024-01-28 10:48:00 149.60 pounds Regan F Ryley Height Measured 2024-01-28 10:48:00 60.00 inches Regan F Ryley Body Temperature 2024-01-28 10:48:00 98.00 degrees Regan F Ryley Heart Rate 2024-01-28 10:48:00 78.00 /min Regan F Ryley Respiratory Rate 2024-01-28 10:48:00 18.00 /min Regan F Ryley BP Systolic 2024-01-02 15:59:00 127 mm[Hg] Regan F Ryley BP Diastolic 2024-01-02 15:59:00 84 mm[Hg] Regan F Ryley Weight Measured 2024-01-02 15:59:00 149.60 pounds Regan F Ryley Height Measured 2024-01-02 15:59:00 60.00 inches Regan F Ryley Body Temperature 2024-01-02 15:59:00 98.30 degrees Regan F Ryley Heart Rate 2024-01-02 15:59:00 82.00 /min Regan F Ryley Respiratory Rate 2024-01-02 15:59:00 Regan F Ryley BP Systolic 2024-01-02 14:52:00 127 mm[Hg] Regan F Ryley BP Diastolic 2024-01-02 14:52:00 84 mm[Hg] Regan F Ryley Weight Measured 2024-01-02 14:52:00 149.60 pounds Regan F Ryley Height Measured 2024-01-02 14:52:00 60.00 inches Regan F Ryley Body Temperature 2024-01-02 14:52:00 98.30 degrees Regan F Ryley Heart Rate 2024-01-02 14:52:00 82.00 /min Regan F Ryley Respiratory Rate 2024-01-02 14:52:00 Regan F Ryley BP Systolic 2023-11-20 08:47:00 141 mm[Hg] Regan F Ryley BP Diastolic 2023-11-20 08:47:00 100 mm[Hg] Regan F Ryley Weight Measured 2023-11-20 08:47:00 148.00 pounds Regan F Ryley Height Measured 2023-11-20 08:47:00 60.00 inches Regan F Ryley Body Temperature 2023-11-20 08:47:00 98.20 degrees Regan F Ryley Heart Rate 2023-11-20 08:47:00 87.00 /min Regan F Ryley Respiratory Rate 2023-11-20 08:47:00 Regan F Ryley BP Systolic 2023-11-20 08:28:00 141 mm[Hg] Regan F Ryley BP Diastolic 2023-11-20 08:28:00 100 mm[Hg] Regan F Ryley Weight Measured 2023-11-20 08:28:00 148.00 pounds Regan F Ryley Height Measured 2023-11-20 08:28:00 60.00 inches Regan F Ryley Body Temperature 2023-11-20 08:28:00 98.20 degrees Regan F Ryley Heart Rate 2023-11-20 08:28:00 87.00 /min Regan F Ryley Respiratory Rate 2023-11-20 08:28:00 Regan F Ryley BP Systolic 2023-08-22 08:20:00 126 mm[Hg] Regan F Ryley BP Diastolic 2023-08-22 08:20:00 84 mm[Hg] Regan F Ryley Weight Measured 2023-08-22 08:20:00 151.00 pounds Regan F Ryley Height Measured 2023-08-22 08:20:00 60.00 inches Regan F Ryley Body Temperature 2023-08-22 08:20:00 98.10 degrees Regan F Ryley Heart Rate 2023-08-22 08:20:00 78.00 /min Regan F Ryley Respiratory Rate 2023-08-22 08:20:00 19.00 /min Regan F Ryley BP Systolic 2023-07-25 08:12:00 118 mm[Hg] Regan F Ryley BP Diastolic 2023-07-25 08:12:00 80 mm[Hg] Regan F Ryley Weight Measured 2023-07-25 08:12:00 151.80 pounds Regan F Ryley Height Measured 2023-07-25 08:12:00 60.00 inches Regan F Ryley Body Temperature 2023-07-25 08:12:00 98.20 degrees Regan F Ryley Heart Rate 2023-07-25 08:12:00 85.00 /min Regan F Ryley Respiratory Rate 2023-07-25 08:12:00 19.00 /min Regan F Ryley BP Systolic 2023-06-19 08:08:00 130 mm[Hg] Regan F Ryley BP Diastolic 2023-06-19 08:08:00 88 mm[Hg] Regan F Ryley Weight Measured 2023-06-19 08:08:00 148.20 pounds Regan F Ryley Height Measured 2023-06-19 08:08:00 60.00 inches Regan F Ryley Body Temperature 2023-06-19 08:08:00 97.90 degrees Regan F Ryley Heart Rate 2023-06-19 08:08:00 79.00 /min Ergan F Ryley Respiratory Rate 2023-06-19 08:08:00 17.00 /min Regan F Ryley BP Systolic 2023-05-29 08:25:00 103 mm[Hg] Regan F Ryley BP Diastolic 2023-05-29 08:25:00 76 mm[Hg] Regan F Ryley Weight Measured 2023-05-29 08:25:00 148.80 pounds Regan F Ryley Height Measured 2023-05-29 08:25:00 60.00 inches Regan F Ryley Body Temperature 2023-05-29 08:25:00 98.00 degrees Regan F Ryley Heart Rate 2023-05-29 08:25:00 101.00 /min Regan F Ryley Respiratory Rate 2023-05-29 08:25:00 19.00 /min Regan F Ryley BP Systolic 2023-05-01 08:49:00 126 mm[Hg] Regan F Ryley BP Diastolic 2023-05-01 08:49:00 92 mm[Hg] Regan F Ryley Weight Measured 2023-05-01 08:49:00 153.60 pounds Regan F Ryley Height Measured 2023-05-01 08:49:00 60.00 inches Regan F Ryley Body Temperature 2023-05-01 08:49:00 Regan F Ryley Heart Rate 2023-05-01 08:49:00 96.00 /min Regan F Ryley Respiratory Rate 2023-05-01 08:49:00 18.00 /min Regan F Ryley BP Systolic 2023-04-10 08:34:00 159 mm[Hg] Regan F Ryley BP Diastolic 2023-04-10 08:34:00 110 mm[Hg] Regan F Ryley Weight Measured 2023-04-10 08:34:00 152.80 pounds Regan F Ryley Height Measured 2023-04-10 08:34:00 60.00 inches Regan F Rylye Body Temperature 2023-04-10 08:34:00 98.20 degrees Regan F Ryley Heart Rate 2023-04-10 08:34:00 84.00 /min Regan F Ryley Respiratory Rate 2023-04-10 08:34:00 17.00 /min Regan Hedrick Procedures Procedure Date / Time Performed Performing Clinician Source NM MYOCARDIUM PERFUSION STRE SS AND REST 2024-05-11 16:13:00 Buddy Preciado [facility] NM MYOCARDIUM PERFUSION STRE SS AND REST 2024-05-11 16:13:00 [facility]OCARDIUM PERFUSION STRE SS AND REST 2024-05-11 [facility]:13[facility]RE SS AND REST 2024-05-11 16:13:00 Mary Buddy [facility] ESOPHAGEAL MANOMETRY 2024-03-16 16:40:00 Motility, Endoscopy [facility] BARIUM SWALLOW ESOPHAGUS 2024-02-05 16:44:46 PostlethAaron fonseca [facility] COLONOSCOPY (ENDO) 2023-11-07 14:20:32 Jennifer Snyder [facility] COLONOSCOPY (ENDO) 2023-11-07 14:20:32 Jennifer Snyder [facility] EGD (ENDO) 2023-11-07 14:14:18 Jennifer Snyder [facility] EGD (ENDO) 2023-11-07 14:14:18 Jennifer Snyder [facility] ESOPHAGOGASTRODUODENOSCOPY 2023-11-07 13:13:00 Essie Tian [facility] COLONOSCOPY 2023-11-07 13:13:00 Essie Tian [facility] FL MODIFIED BARIUM SWALLOW 2023-10-14 15:53:00 PostlethwaAaron shoemaker [facility] DISCLOSURE AND CONSENT, MEDI SARAHI AND SURGICAL PROCEDURES 2023-09-19 06:01:00 Doctor Unassigned, [place] [facility] MEDICAL RELEASE/CLEARANCE FORMS 06:01:00 Doctor Unassigned, [place] [facility] TRANSTHORACIC ECHO (TTE) COMPLETE 03-14 18:09:00 Maciel Rueda [facility] CT HEAD WO CONTRAST 2022-09-28 21:40:10 Maciel Rueda [facility] XR HIPS 2 VW LEFT 2022-09-25 19:17:39 Requisition, Paper [facility] XR FEMUR 2 VW LEFT 2022-09-25 19:17:01 Maciel Rueda [facility] XR SKULL <4 VW 2022-09-25 19:16:00 Requisition, Paper [facility] XR LUMBAR SPINE 4 VW 2022-09-25 19:16:00 Maciel Rueda [facility] XR LUMBAR SPINE 4 VW 2022-09-25 19:16:00 Maciel Rueda [facility] XR SKULL <4 VW 2022-09-25 19:16:00 Requisition, Paper [facility] NOTICE OF PRIVACY PRACTICES 2022-09-25 17:30:12 Doctor Unassigned, [place] [facility] CONSENT/REFUSAL FOR DIAGNOSI S AND TREATMENT 2022-09-25 17:29:40 Doctor Unassigned, [place] [facility] ASSIGNMENT OF BENEFITS 2022-09-25 17:29:23 Doctor Unassigned, [place] [facility] XR CHEST 2 VW 2022-06-19 14:23:37 Requisition, Paper [facility] CONSENT/REFUSAL FOR DIAGNOSI S AND TREATMENT 2022-06-19 13:53:14 Doctor Unassigned, [place] [facility] Encounters Start Date/Time End Date/Time Encounter Type Admission Type Attending [facility] Care Department Encounter ID Source 2022-11-05 13:10:00 Outpatient [facility] [id number] [facility] 2022-10-29 16:54:01 Outpatient [facility] [id number] [facility] 2024-12-14 08:45:00 2024-12-14 08:45:00 Outpatient ALLYN HIGUERA [facility] [id number] [facility] 2024-10-01 13:10:00 2024-10-01 13:10:00 Outpatient BALAJI MARTINEZ [facility] [id number] [facility] 2024-09-17 18:14:20 2024-09-17 18:14:20 Outpatient [facility] [id number] Regan Hedrick 2024-09-15 10:30:00 2024-09-15 10:45:00 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 Buddy Preciado Pcp-Lab [facility] 1.2.840.114 350.1.13.10 4.2.7.2.686 [id number] [facility] 2024-09-15 09:30:00 2024-09-15 10:27:06 Outpatient R BUDDY PRECIADO RIZWAN [facility] [id number] [facility] 2024-09-15 09:30:00 2024-09-15 10:27:06 Office Visit Buddy Preciado [facility] 1.2.840.114 350.1.13.10 4.2.7.2.686 [id number] [facility] 2024-09-10 18:13:19 2024-09-10 18:13:19 Outpatient [facility] [id number] Regan Hedrick 2024-09-09 09:37:41 2024-09-09 09:37:41 Outpatient [facility] [id number] Regan Raymond Ryley 2024-09-07 09:36:17 2024-09-07 09:36:17 Outpatient [facility] [id number] Regan Raymond [place] 2024-09-07 00:00:00 2024-09-07 00:00:00 Outpatient Visit SFA [id number] Regan Raymond Ryle[place] 2024-08-27 18:21:52 2024-08-27 18:21:52 Outpatient SFA SFA [id number] Regan Hedrick 2024-08-18 00:00:00 2024-08-18 09:37:50 Telephone Allyn Michael [facility] [place] 1.2.840.114 350.1.13.10 4.2.7.2.686 [id number] [facility] 2024-08-18 08:23:00 2024-08-18 08:23:00 Outpatient SFA [facility] [id number] Regan Hedrick 2024-08-17 08:30:00 2024-08-17 08:45:00 Office Visit Allyn Michael [facility] 1.2.840.114 350.1.13.10 4.2.7.2.686 [id number] [facility] 2024-08-17 08:30:00 2024-08-17 08:27:30 Outpatient R ALLYN MICHAEL [facility] [id number] [facility] 2024-08-06 18:38:31 2024-08-06 18:38:31 Outpatient SFA SFA [id number] Regan Hedrick 2024-07-28 10:07:10 2024-07-28 10:07:10 Outpatient SFA SFA [id number] Regan Hedrick 2024-07-27 08:30:00 2024-07-27 08:30:00 Outpatient R ALLYN MICHAEL [facility] [id number] [facility] 2024-07-21 08:51:24 2024-07-21 08:51:24 Outpatient SFA SFA [id number] Regan Hedrick 2024-07-20 10:56:58 2024-07-20 10:56:58 Outpatient SFA SFA [id number] Regan Raymond Ryley 2024-07-16 18:30:45 2024-07-16 18:30:45 Outpatient SFA SFA [id number] Regan Hedrick 2024-07-02 18:59:39 2024-07-02 18:59:39 Outpatient SFA SFA [id number] Regan Hedrick 2024-07-02 13:50:00 2024-07-02 13:50:00 Office Visit Balaji Gary [facility] 1..840.114 350.1.13.10 4.2.7.2.686 [id number] [facility] 2024-07-02 13:50:00 2024-07-02 13:48:28 Outpatient R BALAJI GARY [facility] [id number] [facility] 2024-06-26 08:15:00 2024-06-26 08:50:44 Outpatient R JONNATHAN PALUMBO SCOTT [facility] [id number] [facility] 2024-06-26 08:15:00 2024-06-26 08:50:44 [facility] 1..840.114 350.1.13.10 4.2.7.2.686 [id number] [facility] 2024-06-25 18:50:47 2024-06-25 18:50:47 Outpatient [facility] [id number] Regan Raymond [place] 2024-06-16 08:52:32 2024-06-16 08:52:32 Outpatient [facility] [id number] Regan Raymond Ryley 2024-06-16 00:00:00 2024-06-16 00:00:00 Outpatient Visit [facility] [id number] Regan Hedrick 2024-06-15 09:00:00 2024-06-15 09:42:14 Outpatient R STACIE CANSECO KIMBERLY [facility] [id number] [facility] 2024-06-15 09:00:00 2024-06-15 09:42:14 Ancillary Visit Stacie Canseco 1, [facility] [employer] 1, [facility] [employer] [facility] B[facility]. .2.840.114 350.1.13.10 4.2.7.2.686 [id number] [facility] 2024-06-11 18:53:23 2024-06-11 18:53:23 Outpatient SFA SFA [id number] Regan Hedrick 2024-06-04 18:19:25 2024-06-04 18:19:25 Outpatient SFA SFA [id number] Regan Hedrick 2024-06-03 08:37:35 2024-06-03 08:37:35 Outpatient SFA SFA [id number] Regan Hedrick 2024-06-02 14:00:00 2024-06-02 14:32:48 Outpatient R AGNIESZKAMARIANGEL [facility] [id number] [facility] 2024-06-02 14:00:00 2024-06-02 14:32:48 Office Visit Agnieszka [facility] 1.2.840.114 350.1.13.10 4.2.7.2.686 [id number] [facility] 2024-05-28 18:28:47 2024-05-28 18:28:47 Outpatient SFA SFA [id number] Regan Hedrick 2024-05-28 13:10:00 2024-05-28 13:10:00 Outpatient R ROBERTJENNIFERBALAJI [facility] [id number] [facility] 2024-05-21 18:48:08 2024-05-21 18:48:08 Outpatient SFA SFA [id number] Regan Hedrick 2024-05-21 00:00:00 2024-05-21 11:49:15 Telephone Buddy Preciado [facility] 1.2.840.114 350.1.13.10 4.2.7.2.686 [id number] [facility] 2024-05-20 07:55:55 2024-05-20 07:55:55 Outpatient SFA SFA [id number] Regan Hedrick 2024-05-14 18:38:53 2024-05-14 18:38:53 Outpatient SFA SFA [id number] Regan Hedrick 2024-05-12 00:00:00 2024-05-12 15:34:01 Telephone Buddy Preciado [facility] 1.2.840.114 350.1.13.10 4.2.7.2.686 [id number] [facility] 2024-05-11 08:24:39 2024-05-11 23:59:00 Hospital Encounter Joe Preciadowan [facility] ([facility]) 1.2.840.114 350.1.13.10 4.2.7.2.686 [id number] [facility] 2024-05-11 08:24:29 2024-05-11 23:59:00 Hospital Encounter Mary Buddy [facility] ([facility]) 1.2.840.114 350.1.13.10 4.2.7.2.686 [id number] [facility] 2024-05-11 08:24:17 2024-05-11 23:59:00 Hospital Encounter Bethany Preciadon [facility] ([facility]) 1.2.840.114 350.1.13.10 4.2.7.2.686 [id number] [facility] 2024-05-11 08:24:01 2024-05-11 23:59:00 Outpatient R MARYBUDDY RIZWAN [facility] [id number] [facility] 2024-05-11 08:24:01 2024-05-11 23:59:00 Hospital Encounter Preciado Buddy [facility] ([facility]) 1.2.840.114 350.1.13.10 4.2.7.2.686 [id number] [facility] 2024-05-06 08:40:47 2024-05-06 08:40:47 Outpatient [facility] [id number] Regan Hedrick 2024-05-05 10:00:00 2024-05-05 10:00:00 Office Visit MaryBuddy [facility]IR[facility] 1.2.840.114 350.1.13.10 4.2.7.2.686 [id number] [facility] 2024-05-05 10:00:00 2024-05-05 09:41:32 Outpatient R PRECIADOBUDDY RIZWAN [facility] [id number] [facility] 2024-04-23 19:02:38 2024-04-23 19:02:38 Outpatient [facility] [id number] Regan Hedrick 2024-04-17 00:00:00 2024-04-20 14:41:56 Telephone Buddy Preciado [facility]AVSKIPON 1.2.840.114 350.1.13.10 4.2.7.2.686 [id number] [facility] 2024-04-20 14:30:00 2024-04-20 14:30:00 Office Visit PostletAaron davis Joseph Marc [facility] [place] 1.2.840.114 350.1.13.10 4.2.7.2.686 [id number] [facility] 2024-04-20 14:30:00 2024-04-20 14:03:42 Outpatient SIMONE DEVLIN [facility] [id number] [facility] 2024-04-16 18:25:21 2024-04-16 18:25:21 Outpatient [facility] [id number] Regan Hedrick 2024-04-06 00:00:00 2024-04-15 13:25:34 Telephone PostAaron delacruz [facility] [place] 1.2.840.114 350.1.13.10 4.2.7.2.686 [id number] [facility] 2024-04-15 08:15:00 2024-04-15 08:15:00 Outpatient R [facility] [id number] [facility] 2024-04-14 08:49:40 2024-04-14 08:49:40 Outpatient [facility] [id number] Regan Hedrick 2024-04-09 18:46:38 2024-04-09 18:46:38 Outpatient [facility] [id number] Regan Hedrick 2024-04-07 10:31:36 2024-04-07 10:31:36 Outpatient [facility] [id number] Regan Hedrick 2024-04-07 00:00:00 2024-04-07 00:00:00 Outpatient R BALAJI GARY [facility] [id number] [facility] 2024-04-03 11:00:00 2024-04-03 23:59:00 Hospital Encounter Fernando Balaji [facility] 1.2.840.114 350.1.13.10 4.2.7.2.686 [id number] [facility] 2024-04-03 10:51:57 2024-04-03 23:59:00 Outpatient R BALAJI GARY [facility] [id number] [facility] 2024-04-03 09:26:06 2024-04-03 09:26:06 Outpatient [facility] [id number] Regan Hedrick 2024-03-31 08:18:51 2024-03-31 08:18:51 Outpatient [facility] [id number] Regan Hedrick 2024-03-30 08:15:00 2024-03-30 09:04:47 Outpatient R ALLYN MICHAEL [facility] [id number] [facility] 2024-03-30 08:15:00 2024-03-30 09:04:47 Office Visit Allyn Michael [facility] 1.2.840.114 350.1.13.10 4.2.7.2.686 [id number] [facility] 2024-03-27 18:56:39 2024-03-27 18:56:39 Outpatient [facility] [id number] Regan Hedrick 2024-03-27 00:00:00 2024-03-27 00:00:00 Outpatient Visit SFA [id number] Regan Hedrick 2024-03-26 14:53:21 2024-03-26 23:59:00 Outpatient R BALAJI GARY [facility] [id number] [facility] 2024-03-26 14:53:21 2024-03-26 23:59:00 Hospital Encounter Fernando Balaji [facility] 1.2.840.114 350.1.13.10 4.2.7.2.686 [id number] [facility] 2024-03-26 15:50:00 2024-03-26 16:37:40 Office Visit Balaji Gary [facility] 1.2.840.114 350.1.13.10 4.2.7.2.686 [id number] [facility] 2024-03-25 15:00:07 2024-03-25 15:00:07 Outpatient [facility] [id number] Regan Hedrick 2024-03-19 08:14:25 2024-03-19 08:14:25 Outpatient [facility] [id number] Regan Hedrick 2024-03-19 00:00:00 2024-03-19 00:00:00 Outpatient Visit [facility] [id number] Regan Hedrick 2024-03-16 11:30:00 2024-03-16 14:00:00 Surgery Motility, Endoscopy [facility] 1..840.114 350.1.13.10 4.2.7.2.686 [id number] [facility] 2024-03-16 11:42:00 2024-03-16 13:06:00 Outpatient GER TORRES GABRIEL [facility] GIE [id number] [facility] 2024-03-16 11:42:00 2024-03-16 13:06:00 Hospital Encounter Ger Dee [facility] 1..840.114 350.1.13.10 4.2.7.2.686 [id number] [facility] 2024-03-13 00:00:00 2024-03-13 13:00:45 Telephone Aaron Souza [facility] [place] 1..840.114 350.1.13.10 4.2.7.2.686 [id number] [facility] 2024-03-05 09:56:17 2024-03-05 09:56:17 Outpatient [facility] [id number] Regan Hedrick 2024-03-05 00:00:00 2024-03-05 00:00:00 Outpatient Visit [facility] [id number] Regan Hedrikc 2024-02-28 00:00:00 2024-03-03 15:20:04 Telephone Lexus Horan [facility] 1..840.114 350.1.13.10 4.2.7.2.686 [id number] [facility] 2024-02-28 09:45:00 2024-02-28 10:22:41 Outpatient YAMILETH BAILEY [facility] [id number] [facility] 2024-02-28 09:45:00 2024-02-28 10:22:41 Office Visit Lexus Horan Yamileth Margoth [facility] [place] 1.840.114 350.1.13.10 4.2.7.2.686 [id number] [facility] 2024-02-27 18:36:26 2024-02-27 18:36:26 Outpatient [facility] [id number] Regan Hedrick 2024-02-23 00:00:00 2024-02-24 11:36:21 Telephone PostAaron delacruz [facility] 1.840.114 350.1.13.10 4.2.7.2.686 [id number] [facility] 2024-02-11 08:02:29 2024-02-11 08:02:29 Outpatient [facility] [id number] Regan Hedrick 2024-02-05 09:02:43 2024-02-05 23:59:00 Hospital Encounter Jeff Arreola [facility] 1.0.114 350.1.13.10 4.2.7.2.686 [id number] [facility] 2024-02-05 14:30:00 2024-02-05 14:31:28 Outpatient R ADRIANE ALEX [facility] [id number] [facility] 2024-02-05 14:30:00 2024-02-05 14:31:28 Office Visit Adriane Alex [facility] [employer] [facility]. 1.840.114 350.1.13.10 4.2.7.2.686 [id number] [facility] 2024-02-05 09:01:52 2024-02-05 09:01:52 Hospital Encounter Radiology [facility] 1.2840.114 350.1.13.10 4.2.7.2.686 [id number] [facility] 2024-02-04 13:02:00 2024-02-04 13:02:00 Outpatient SFA [facility] [id number] Regan Hedrick 2024-01-30 18:34:33 2024-01-30 18:34:33 Outpatient SFA [facility] [id number] Regan Hedrick 2024-01-30 00:00:00 2024-01-30 09:14:46 Telephone Postletarsenio dietz [facility] 1.840.114 350.1.13.10 4.2.7.2.686 [id number] [facility] 2024-01-28 10:15:38 2024-01-28 10:15:38 Outpatient SFA SFA [id number] Regan Hedrick 2024-01-28 00:00:00 2024-01-28 00:00:00 Outpatient Visit [facility] [id number] Regan Hedrick 2024-01-27 00:00:00 2024-01-27 09:53:[address] 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 [facility] Simone Baker [facility] 1.840.114 350.1.13.10 4.2.7.2.686 [id number] [facility] 2024-01-16 08:00:00 2024-01-16 08:30:00 Office Visit PostAaron delacruz [facility] 1.2.840.114 350.1.13.10 4.2.7.2.686 [id number] [facility] 2024-01-16 08:00:00 2024-01-16 08:00:00 Outpatient Lashay BAKER SIMONE [facility] [id number] [facility] 2024-01-02 18:51:36 2024-01-02 18:51:36 Outpatient SFA SFA [id number] Regan Hedrick 2024-01-02 00:00:00 2024-01-02 00:00:00 Outpatient Visit SFA [id number] Regan Hedrick 2023-12-30 00:00:00 2023-12-30 14:34:[address] [facility] [facility] 1.2.840.114 350.1.13.10 4.2.7.2.686 [id number] [facility] 2023-12-26 18:48:29 2023-12-26 18:48:29 Outpatient SFA SFA [id number] Regan Hedrick 2023-12-19 18:20:32 2023-12-19 18:20:32 Outpatient SFA SFA [id number] Regan Raymond Ryley 2023-12-12 18:45:28 2023-12-12 18:45:28 Outpatient SFA SFA [id number] Regan Raymond Ryley 2023-12-10 08:35:43 2023-12-10 08:35:43 Outpatient SFA SFA [id number] Regan Raymond Ryley 2023-11-26 16:14:51 2023-11-26 16:14:51 Outpatient SFA SFA [id number] Regan Hedrick 2023-11-12 00:00:00 2023-11-12 00:00:00 Telephone Postletarsenio dietz [facility] 1.2.840.114 350.1.13.10 4.2.7.2.686 [id number] [facility] 2023-11-12 00:00:00 2023-11-12 00:00:00 Telephone Postletkimberly dietz [facility] 1.2840.114 350.1.13.10 4.2.7.2.686 [id number] [facility] 2023-11-07 07:17:00 2023-11-07 10:05:00 Outpatient R LIAN ESSIE [facility] [place] [id number] [facility] 2023-11-07 07:17:00 2023-11-07 10:05:00 Hospital Encounter Essie Tian [facility] 1..840.114 350.1.13.10 4.2.7.2.686 [id number] [facility] 2023-11-07 08:00:00 2023-11-07 09:00:00 Surgery Essie Tian [facility] 1.2840.114 350.1.13.10 4.2.7.2.686 [id number] [facility] 2023-10-31 18:17:17 2023-10-31 18:17:17 Outpatient SFA SFA [id number] Regan F Ryley 2023-10-29 09:23:40 2023-10-29 09:23:40 Outpatient SFA SFA [id number] Regan Hedrick 2023-10-14 09:09:15 2023-10-14 23:59:00 Outpatient SIMONE DEVLIN [facility] [id number] [facility] 2023-10-14 09:00:00 2023-10-14 23:59:00 Hospital Encounter Simone Baker [facility] 1.2.840.114 350.1.13.10 4.2.7.2.686 [id number] [facility] 2023-10-14 09:00:00 2023-10-14 10:30:11 Ancillary Visit Sarah Palacios Joseph Marc [facility]. 1.2840.114 350.1.13.10 4.2.7.2.686 [id number] [facility] 2023-09-26 18:57:33 2023-09-26 18:57:33 Outpatient [facility] [id number] Regan Hedrick 2023-09-25 00:00:00 2023-09-25 00:00:00 Telephone Postvamshi dietz [facility] 1.2840.114 350.1.13.10 4.2.7.2.686 [id number] [facility] 2023-09-23 00:00:00 2023-09-23 00:00:00 Telephone Postagataarsenio dietz [facility] 1.0.114 350.1.13.10 4.2.7.2.686 [id number] [facility] 2023-09-19 18:35:14 2023-09-19 18:35:14 Outpatient [facility] [id number] Regan Hedrick 2023-09-19 08:00:00 2023-09-19 08:30:00 Office Visit Aaron Souza [facility] 1..114 350.1.13.10 4.2.7.2.686 [id number] [facility] 2023-09-19 08:00:00 2023-09-19 08:00:00 Outpatient SIMONE DEVLIN [facility] [id number] [facility] 2023-09-19 00:00:00 2023-09-19 00:00:00 Orders Only Doctor Unassigned, [place] [facility] 1.840.114 350.1.13.10 4.2.7.2.686 [id number] [facility] 2023-09-18 00:00:00 2023-09-18 00:00:00 Telephone Postvamshi dietz [facility] 1.84.114 350.1.13.10 4.2.7.2.686 [id number] [facility] 2023-09-17 08:49:40 2023-09-17 08:49:40 Outpatient [facility] [id number] Regan Hedrick 2023-09-12 18:26:00 2023-09-12 18:26:00 Outpatient [facility] [id number] Regan Hedrick 2023-09-11 00:00:00 2023-09-11 00:00:00 Orders Only Doctor Unassigned, [place] [facility] 1.2840.114 350.1.13.10 4.2.7.2.686 [id number] [facility] 2023-08-22 18:18:17 2023-08-22 18:18:17 Outpatient [facility] [id number] Regan Hedrick 2023-08-06 08:04:33 2023-08-06 08:04:33 Outpatient [facility] [id number] Regan Hedrick 2023-08-01 18:24:35 2023-08-01 18:24:35 Outpatient [facility] [id number] Regan Hedrick 2023-07-31 00:00:00 2023-07-31 00:00:00 Letter (Out) Postvamshi dietz [facility] 1.84.114 350.1.13.10 4.2.7.2.686 [id number] [facility] 2023-07-25 18:28:58 2023-07-25 18:28:58 Outpatient [facility] [id number] Regan Hedrick 2023-07-11 00:00:00 2023-07-11 00:00:00 Telephone PostAaron delacruz [facility] 1..840.114 350.1.13.10 4.2.7.2.686 [id number] [facility] 2023-07-02 08:16:38 2023-07-02 08:16:38 Outpatient [facility] [id number] Regan Hedrick 2023-06-27 18:29:48 2023-06-27 18:29:48 Outpatient [facility] [id number] Regan Hedrick 2023-06-25 10:48:58 2023-06-25 10:48:58 Outpatient [facility] [id number] Regan Hedrick 2023-06-20 18:56:50 2023-06-20 18:56:50 Outpatient [facility] [id number] Regan Hedrick 2023-06-20 07:30:00 2023-06-20 08:00:00 Office Visit PostAaron delacruz Joseph Marc [facility] 1..840.114 350.1.13.10 4.2.7.2.686 [id number] [facility] 2023-06-20 07:30:00 2023-06-20 07:30:00 Outpatient SIMONE DEVLIN [facility] [id number] [facility] 2023-06-19 08:00:48 2023-06-19 08:00:48 Outpatient [facility] [id number] Regan Hedrick 2023-06-17 11:15:23 2023-06-17 11:15:23 Outpatient [facility] [id number] 1106 Regan Hedrick 2023-06-13 07:59:11 2023-06-13 07:59:11 Outpatient SFA SFA [id number] 1102 Regan Hedrick 2023-05-29 08:14:13 2023-05-29 08:14:13 Outpatient SFA SFA [id number] 1018 Regan Hedrick 2023-05-23 18:33:05 2023-05-23 18:33:05 Outpatient SFA SFA [id number] 1012 Regan Hedrick 2023-05-16 18:58:14 2023-05-16 18:58:14 Outpatient SFA SFA [id number] 100 Regan Hedrick 2023-05-14 10:56:25 2023-05-14 10:56:25 Outpatient SFA SFA [id number] 100 Regan Hedrick 2023-05-09 18:54:53 2023-05-09 18:54:53 Outpatient SFA SFA [id number] 0928 Regan Hedrick 2023-05-02 18:32:41 2023-05-02 18:32:41 Outpatient SFA SFA [id number] 0921 Regan Raymond Ryley 2023-05-01 09:48:32 2023-05-01 09:48:32 Outpatient SFA SFA [id number] 0920 Regan Hedrick 2023-04-25 19:00:41 2023-04-25 19:00:41 Outpatient SFA SFA [id number] 0914 Regan Hedrick 2023-04-18 18:52:11 2023-04-18 18:52:11 Outpatient SFA SFA [id number] 0907 Regan Hedrick 2023-04-16 10:48:48 2023-04-16 10:48:48 Outpatient SFA SFA [id number] 0905 Regan Raymond Ryley 2023-04-11 19:04:54 2023-04-11 19:04:54 Outpatient SFA SFA [id number] 0831 Regan Raymond Ryley 2023-04-10 08:20:11 2023-04-10 08:20:11 Outpatient SFA SFA [id number] 0830 Regan Hedrick 2023-04-04 18:58:30 2023-04-04 18:58:30 Outpatient SFA SFA [id number] Regan Raymond Ryley 2023-04-02 09:58:12 2023-04-02 09:58:12 Outpatient SFA SFA [id number] 0822 Regan Hedrick 2023-03-14 12:24:22 2023-03-14 23:59:00 Outpatient R MARILY TIRADO [facility] [id number] [facility] 2023-03-14 12:24:22 2023-03-14 23:59:00 Hospital Encounter Marily Tirado [facility] 1.2.840.114 350.1.13.10 4.2.7.2.686 [id number] [facility] 2023-03-05 09:18:44 2023-03-05 09:18:44 Outpatient SFA SFA [id number] 0725 Regan Hedrick 2023-02-05 07:57:52 2023-02-05 07:57:52 Outpatient SFA SFA [id number] 0627 Regan Hedrick 2023-01-29 07:59:29 2023-01-29 07:59:29 Outpatient SFA SFA [id number] 0620 Regan Hedrick 2023-01-15 08:08:41 2023-01-15 08:08:41 Outpatient SFA SFA [id number] Regan Hedrick 2022-12-07 08:07:15 2022-12-07 08:07:15 Outpatient SFA SFA [id number] 0428 Regan Hedrick 2022-12-05 00:00:00 2022-12-05 00:00:00 [id number] 2022-11-19 15:16:58 2022-11-19 15:16:58 Outpatient SFA SFA [id number] 0410 Regan Hedrick 2022-11-13 08:49:35 2022-11-13 08:49:35 Outpatient SFA SFA [id number] Regan Hedrick 2022-11-05 08:27:28 2022-11-05 08:27:28 Outpatient SFA SFA [id number] Regan Hedrick 2022-11-05 00:00:00 2022-11-05 00:00:00 OFFICE VISIT NEW PT LEVEL 3 [facility] [id number] [facility] 2022-10-16 08:03:00 2022-10-16 08:03:00 Outpatient [facility] [id number] Regan Hedrick 2022-09-28 15:28:10 2022-09-28 23:59:00 Outpatient R RADIOLOGY [facility] [id number] [facility] 2022-09-28 15:28:10 2022-09-28 23:59:00 Hospital Encounter Radiology [facility] 1.2.840.114 350.1.13.10 4.2.7.2.686 [id number] [facility] 2022-09-25 11:39:09 2022-09-25 23:59:00 Hospital Encounter Radiology [facility] 1.2.840.114 350.1.13.10 4.2.7.2.686 [id number] [facility] 2022-09-25 11:34:23 2022-09-25 11:38:00 Outpatient R RADIOLOGY [facility] [id number] [facility] 2022-09-25 11:34:23 2022-09-25 11:38:00 Hospital Encounter Radiology [facility] 1.2.840.114 350.1.13.10 4.2.7.2.686 [id number] [facility] 2022-09-25 11:30:00 2022-09-25 11:33:00 Hospital Encounter Radiology [facility] 1.2.840.114 350.1.13.10 4.2.7.2.686 [id number] [facility] 2022-09-25 11:27:18 2022-09-25 11:29:00 Hospital Encounter Radiology [facility] 1.2.840.114 350.1.13.10 4.2.7.2.686 [id number] [facility] 2022-09-25 10:53:34 2022-09-25 10:53:34 Outpatient S[facility] [id number] 0214 Regan Hedrick 2022-08-28 19:14:36 2022-08-28 19:14:36 Outpatient [facility] [id number] Regan Hedrick 2022-08-21 09:07:03 2022-08-21 09:07:03 Outpatient [facility] [id number] Regan Hedrick 2022-07-31 08:58:47 2022-07-31 08:58:47 Outpatient [facility] [id number] Regan Hedrick 2022-07-19 11:08:12 2022-07-19 11:08:12 Outpatient SFA [facility] [id number] Regan Hedrick 2022-07-17 10:04:19 2022-07-17 10:04:19 Outpatient [facility] [id number] Regan Hedrick 2022-07-10 09:25:30 2022-07-10 09:25:30 Outpatient SFA [facility] [id number] Regan Hedrick 2022-06-19 07:57:23 2022-06-19 23:59:00 Outpatient R RADIOLOGY [facility] [id number] [facility] 2022-06-19 07:57:23 2022-06-19 23:59:00 Hospital Encounter Radiology [facility] 1.840.114 350.1.13.10 4.2.7.2.686 [id number] [facility] 2022-06-19 00:00:00 2022-06-19 00:00:00 Orders Only Doctor Unassigned, [place] [facility] 1..840.114 350.1.13.10 4.2.7.2.686 [id number] [facility] 2022-06-12 09:31:03 2022-06-12 09:31:03 Outpatient [facility] [id number] Regan Hedrick 2022-05-21 10:42:53 2022-05-21 10:42:53 Outpatient [facility] [id number] Regan Hedrick 2020-12-08 08:56:56 2020-12-08 23:59:00 [facility] [id number] 2020-12-07 00:00:00 2020-12-07 00:00:00 Outpatient Lashay CARRERA [facility] [id number] [facility] 2020-12-05 11:01:00 2020-12-05 11:01:00 Outpatient [facility] [id number] 0426 [facility] Results Test Description Test Time Test Comments Results Result Co mments Source CULTURE, URINE 2024-09-11 12:13:36 SPECIMEN NUMBER: [id number] CULTURE, URINE SPECIMEN NUMBER: [id number] SOURCE: URINE REPORT STATUS: FINAL ISOLATE NUMBER 1: ORGANISM: 09/10/2024 10,000-100,000 CFU/ML GRAM NEGATIVE BACILLI IDENTIFICATION: 09/11/2024 ESCHERICHIA COLI E. COLI AMOX ICILLIN/CA INTERMED 16/8AMPICILLIN RESISTANT >16CEFAZOLIN RESISTANT >16CEFTRIAXONE SENSITIVE <=1CIPROFLOXACIN SENSITIVE <=0.25LEVOFLOXACIN SENSITIVE <=0.5NITROFURANTOIN SENSITIVE <=32PIP/TAZOBAC SENSITIVE <=16TOBRAMYCIN INTERMED 8TRIMETH/SULFA RESISTANT >2/38 NOTE: NUMBERS DISPLAYED REPRESENT MINIMUM INHIBITORY CONCENTRATION (DENIS) WHICH IS EXPRESSED IN MCG/ML. UNLESS OTHERWISE INDICATED, ALL TESTING PERFORMED AT [facility] [address] [place] [id number] PROPOSITION PLAYER: MEHUL EASLEY M.D. [place] NUMBER [id number] [place]. [id number] LIPID [id number] 03:38:27* Test Item Value Reference Range Interpretation Comme nts CHOLESTEROL (test code = 2210) 150 MG/DL <200 TRIGLYCERIDES (test code = 2232) 74 MG/DL <150 HDL CHOLESTEROL (test code = 2220) 62 MG/DL >39 CALC LDL CHOL (test code = 2236) 73 MG/DL <100 NOTE: CALCULATED LDL IS BASED ON DOREEN-HANNA METHOD WHICHINCLUDES ADJUSTABLE TRIGLYCERIDE:VLDL CHOLESTEROL RATIO.THIS FACTOR VARIES BY MEASURED TRIGLYCERIDE AND NON-HDLCHOLESTEROL CONCENTRATIONS WITH INCREASED CALCULATED LDL SEENIN HIGHER TRIGLYCERIDE OR LOWER NON-HDL SPECIMENS. FOR MOREINFORMATION, SEE CLIENT ANNOUNCEMENT AT [email or web address] RISK RATIO LDL/HDL (test code = 2237) 1.18 RATIO <3.22 COMPREHENSIVE METABOLIC [id number] 03:38:27* Test Item Value Reference Range Interpretation Comme nts GLUCOSE (test code = 2216) 99 MG/DL 70-99 BUN (test code = 2207) 12 MG/DL 8-23 CREATININE (test code = 2213) 0.85 MG/DL 0.60-1.30 eGFR (2020 CKD-EPI) (test code = 10022) 76 ML/MIN/1.73 >60 CALC BUN/CREAT (test code = 2234) 14 RATIO 6-28 SODIUM (test code = 2230) 146 MEQ/L 133-146 POTASSIUM (test code = 2227) 4.3 MEQ/L 3.5-5.4 CHLORIDE (test code = 5) 108 MEQ/L 95-107 H CARBON DIOXIDE (test code = 2205) 24 MEQ/L 19-31 CALCIUM (test code = 2208) 10.4 MG/DL 8.5-10.5 PROTEIN, TOTAL (test code = 2228) 6.8 G/DL 6.1-8.3 ALBUMIN (test code = 2200) 4.5 G/DL 3.5-5.2 CALC GLOBULIN (test code = 2240) 2.3 G/DL 1.9-3.7 CALC A/G RATIO (test code = 2233) 2.0 RATIO 1.0-2.6 BILIRUBIN, TOTAL (test code = 2206) 0.4 MG/DL <=1.2 ALKALINE PHOSPHATASE (test code = 2203) 110 U/L 40-140 AST (test code = 2218) 17 U/L 9-40 ALT (test code = 2219) 14 U/L 5-40 UNLESS OTHERWISE INDICATED, ALL TESTING PERFORMED AT [facility] [address] [place] [id number] PROPOSITION PLAYER: MEHUL EASLEY M.D. CLIA NUMBER [id number] [place]. [id number] HEMOGLOBIN [id number] 00:00:00* Test Item Value Reference Range Interpretation Comme nts HEMOGLOBIN A1c (test code = 07554) 5.9 % Regan HedrickLIPID [id number] 00:00:00* Test Item Value Reference Range Interpretation Comme nts CHOLESTEROL (test code = 2210) 150 MG/DL TRIGLYCERIDES (test code = 2232) 74 MG/DL HDL CHOLESTEROL (test code = 2220) 62 MG/DL CALC LDL CHOL (test code = 2237) 73 MG/DL RISK RATIO LDL/HDL (test cod e = 2238) 1.18 RATIO Regan HedrickCOMPREHENSIVE METABOLIC [id number] 00:00:00* Test Item Value Reference Range Interpretation Comme nts GLUCOSE (test code = 2217) 99 MG/DL BUN (test code = 2208) 12 MG/DL CREATININE (test code = 2214) 0.85 MG/DL eGFR (2020 CKD-EPI) (test co de = 17004) 76 ML/MIN/1.73 CALC BUN/CREAT (test code = 2235) 14 RATIO SODIUM (test code = 2231) 146 MEQ/L POTASSIUM (test code = 2228) 4.3 MEQ/L CHLORIDE (test code = 2215) 108 MEQ/L CARBON DIOXIDE (test code = 2206) 24 MEQ/L CALCIUM (test code = 2209) 10.4 MG/DL PROTEIN, TOTAL (test code = 2229) 6.8 G/DL ALBUMIN (test code = 2201) 4.5 G/DL CALC GLOBULIN (test code = 2240) 2.3 G/DL CALC A/G RATIO (test code = 2234) 2.0 RATIO BILIRUBIN, TOTAL (test code = 2207) 0.4 MG/DL ALKALINE PHOSPHATASE (test code = 2204) 110 U/L AST (test code = 2218) 17 U/L ALT (test code = 2219) 14 U/L Regan Briceno BARIUM SWALLOW [id number] 20:12:53EXAM: FL BARIUM SWALLOW ESOPHAGUS HISTORY: 63 years-old; Female; Dysphagia TECHNIQUE: Barium and air crystals were ingested. Fluoroscopy and stillfilms were obtained of the hypopharynx, esophagus, and the stomach instanding, prone, and supine positions. Barium tablet was given. COMPARISON: [facility] [place] dated 10/14/2023 FINDINGS: Contrast passes through the hypopharynx without issue. No anatomicabnormalitiesare visualized in the esophagus. 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 There is significant bolusstasis and intraesophageal reflux to the level of the upper esophagealsphincter most prominent in prone position. No hiatal hernia is visualized.No gastroesophageal reflux iselicited on examination. The barium tabletpasses without issue.[facility] AND FOLIC [id number] 05:42:42* Test Item Value Reference Range Interpretation Comme [facility] VITAMIN B-12 (test code = 2840) 539 PG/ML 200-950 FOLIC ACID (test code = 2695) 8.7 UG/L SEE BELOW INTERPRETI VE RANGES DEFICIENCY . . . . . . . . . . . . . . . UG/L <4.0 POSSIBLE DEFICIENCY. . . . . . . . . . . UG/L 4.0-5.9 SUFFICIENT . . . . . . . . . . . . . . . UG/L >=6.0 RPR REFLEX TO T. PALLIDUM - [id number] 04:46:25* Test Item Value Reference Range Interpretation Comme nts RPR (test code = 37726) NON-REACTIVE NON-REACTIVE RPR TITER (test code = 3500) NOT INDIC. TITER NOT INDIC. [id number] 04:38:41* Test Item Value Reference Range Interpretation Comme nts MAGNESIUM (test code = 2226) 2.2 MG/DL 1.6-2.6 UNLESS OTHERWISE INDICATED, ALL TESTING PERFORMED AT [facility] [address] [place] [address] PROPOSITION PLAYER: MEHUL EASLEY M.D. CLIA NUMBER [id number] [place]. [id number] COMPREHENSIVE METABOLIC [id number] 04:10:24* Test Item Value Reference Range Interpretation Comme nts GLUCOSE (test code = 2217) 109 MG/DL 70-99 H BUN (test code = 2208) 29 MG/DL 8-23 H CREATININE (test code = 2214) 0.98 MG/DL 0.60-1.30 eGFR (2020 CKD-EPI) (test co de = 52454) 64 ML/MIN/1.73 >60 CALC BUN/CREAT (test code = 2234) 30 RATIO 6-28 H SODIUM (test code = 2230) 139 MEQ/L 133-146 POTASSIUM (test code = 2227) 4.4 MEQ/L 3.5-5.4 CHLORIDE (test code = 2214) 102 MEQ/L 95-107 CARBON DIOXIDE (test code = 6) 22 MEQ/L 19-31 CALCIUM (test code = 2208) 10.7 MG/DL 8.5-10.5 H PROTEIN, TOTAL (test code = 2228) 6.9 G/DL 6.1-8.3 ALBUMIN (test code = 2200) 4.9 G/DL 3.5-5.2 CALC GLOBULIN (test code = 2239) 2.0 G/DL 1.9-3.7 CALC A/G RATIO (test code = 2233) 2.5 RATIO 1.0-2.6 BILIRUBIN, TOTAL (test code = 2206) <0.2 MG/DL <=1.2 ALKALINE PHOSPHATASE (test code = 2203) 106 U/L 40-140 AST (test code = 2217) 15 U/L 9-40 ALT (test code = 2218) 12 U/L 5-40 HEMOGLOBIN [id number] 02:36:49* Test Item Value Reference Range Interpretation Comme nts HEMOGLOBIN A1c (test code = 95552) 5.8 % 4.2-5.6 H [employer] GUIDELINES FOR HGB A1C: PREDIABETES/INCREASED RISK . . . . . . . 5.7-6.4% DIAGNOSIS OF DIABETES . . . . . . . . . >=6.5% WITH CONFIRMATION OR APPROPRIATE SYMPTOMS NOTE: ASSAY MAY BE AFFECTED BY HEMOGLOBINOPATHIES (SICKLE CELL ANEMIA, S-C DISEASE, OTHERS) OR ARTIFICIALLY LOWERED BY DECREASED RED CELL SURVIVAL (HEMOLYTIC ANEMIAS, BLOOD LOSS, ETC.). CONSIDER ALTERNATE TESTING OR LABORATORY CONSULTATION. CBC W/AUTO DIFF WITH [id number] 02:22:07* Test Item Value Reference Range Interpretation Comme nts WBC (test code = 1001) 7.1 K/UL 3.5-11.0 RBC (test code = 1002) 4.35 M/UL 3.80-5.40 HEMOGLOBIN (test code = 1003) 13.8 G/DL 11.5-15.5 HEMATOCRIT (test code = 1004) 39.7 % 34.0-45.0 MCV (test code = 1005) 91.3 fL 80.0-99.0 MCH (test code = 1006) 31.7 PG 25.0-33.0 MCHC (test code = 1007) 34.8 G/DL 31.0-36.0 RDW (test code = 1038) 12.6 % 11.5-15.0 NEUTROPHILS (test code = 1008) 60.3 % LYMPHOCYTES (test code = 1010) 28.1 % MONOCYTES (test code = 1011) 7.2 % EOSINOPHILS (test code = 1012) 2.7 % BASOPHILS (test code = 1013) 1.4 % IMMATURE GRANULOCYTES (test code = 1036) 0.3 % NUCLEATED RBCS (test code = 1065) 0.0 /100 WBC'S See_Comment [Automated MatchMinea ge] The system which generated this result transmitted reference range: 0.0. The reference range was not used to interpret this result as normal/abnormal. PLATELET COUNT (test code = 1015) 417 K/UL 130-400 H ABSOLUTE NEUTROPHILS (test code = 1066) 4.30 K/UL 1.50-7.50 ABSOLUTE LYMPHOCYTES (test code = 1067) 2.00 K/UL 1.00-4.00 ABSOLUTE MONOCYTES (test code = 1068) 0.51 K/UL 0.20-1.00 ABSOLUTE EOSINOPHILS (test code = 1040) 0.19 K/UL 0.00-0.50 ABSOLUTE BASOPHILS (test code = 1069) 0.10 K/UL 0.00-0.20 ABS IMMATURE GRANULOCYTES (test code = 1020) 0.02 K/UL 0.00-0.10 ABS NUCLEATED RBCS (test code = 38298) 0.00 K/UL 0.00-0.11 COMPREHENSIVE METABOLIC [id number] 00:00:00* Test Item Value Reference Range Interpretation Comme nts GLUCOSE (test code = 2217) 109 MG/DL BUN (test code = 2208) 29 MG/DL CREATININE (test code = 2214) 0.98 MG/DL eGFR (2020 CKD-EPI) (test co de = 99978) 64 ML/MIN/1.73 CALC BUN/CREAT (test code = 2235) 30 RATIO SODIUM (test code = 2231) 139 MEQ/L POTASSIUM (test code = 2228) 4.4 MEQ/L CHLORIDE (test code = 2215) 102 MEQ/L CARBON DIOXIDE (test code = 2206) 22 MEQ/L CALCIUM (test code = 2209) 10.7 MG/DL PROTEIN, TOTAL (test code = 2229) 6.9 G/DL ALBUMIN (test code = 2201) 4.9 G/DL CALC GLOBULIN (test code = 2240) 2.0 G/DL CALC A/G RATIO (test code = 2234) 2.5 RATIO BILIRUBIN, TOTAL (test code = 2207) <0.2 MG/DL ALKALINE PHOSPHATASE (test code = 2204) 106 U/L AST (test code = 2218) 15 U/L ALT (test code = 2219) 12 U/L [facility] [id number] 00:00:00* Test Item Value Reference Range Interpretation Comme nts WBC (test code = 1001) 7.1 K/UL RBC (test code = 1002) 4.35 M/UL HEMOGLOBIN (test code = 1003) 13.8 G/DL HEMATOCRIT (test code = 1004) 39.7 % MCV (test code = 1005) 91.3 fL MCH (test code = 1006) 31.7 PG MCHC (test code = 1007) 34.8 G/DL RDW (test code = 1038) 12.6 % NEUTROPHILS (test code = 1008) 60.3 % LYMPHOCYTES (test code = 1010) 28.1 % MONOCYTES (test code = 1011) 7.2 % EOSINOPHILS (test code = 1012) 2.7 % BASOPHILS (test code = 1013) 1.4 % IMMATURE GRANULOCYTES (test code = 1036) 0.3 % NUCLEATED RBCS (test code = 1065) 0.0 /100WBC'S PLATELET COUNT (test code = 1015) 417 K/UL ABSOLUTE NEUTROPHILS (test c ode = 1066) 4.30 K/UL ABSOLUTE LYMPHOCYTES (test c ode = 1067) 2.00 K/UL ABSOLUTE MONOCYTES (test cod e = 1068) 0.51 K/UL ABSOLUTE EOSINOPHILS (test c ode = 1040) 0.19 K/UL ABSOLUTE BASOPHILS (test cod e = 1069) 0.10 K/UL ABS IMMATURE GRANULOCYTES (t est code = 1020) 0.02 K/UL ABS NUCLEATED RBCS (test cod e = 29129) 0.00 K/UL Regan HedrickRPR REFLEX TO T. PALLIDUM - [id number] 00:00:00* Test Item Value Reference Range Interpretation Comme nts RPR (test code = 82158) NON-REACTIVE RPR TITER (test code = 3500) NOT INDIC. TITER Regan HedrickHEMOGLOBIN [id number] 00:00:00* Test Item Value Reference Range Interpretation Comme rtip HEMOGLOBIN A1c (test code = 58732) 5.8 % Regan HedrickVITAMIN B 12 AND FOLIC [id number] 00:00:00* Test Item Value Reference Range Interpretation Comme trip VITAMIN B-12 (test code = 2840) 539 PG/ML FOLIC ACID (test code = 2695) 8.7 UG/L Regan [id number] 00:00:00* Test Item Value Reference Range Interpretation Comme nts MAGNESIUM (test code = 2226) 2.2 MG/DL Regan HedrickCOMPREHENSIVE METABOLIC [id number] 00:00:00* Test Item Value Reference Range Interpretation Comme nts GLUCOSE (test code = 2217) 109 MG/DL BUN (test code = 2208) 29 MG/DL CREATININE (test code = 2214) 0.98 MG/DL eGFR (2020 CKD-EPI) (test co de = 55875) 64 ML/MIN/1.73 CALC BUN/CREAT (test code = 2235) 30 RATIO SODIUM (test code = 2231) 139 MEQ/L POTASSIUM (test code = 2228) 4.4 MEQ/L CHLORIDE (test code = 2215) 102 MEQ/L CARBON DIOXIDE (test code = 2206) 22 MEQ/L CALCIUM (test code = 2209) 10.7 MG/DL PROTEIN, TOTAL (test code = 2229) 6.9 G/DL ALBUMIN (test code = 2201) 4.9 G/DL CALC GLOBULIN (test code = 2240) 2.0 G/DL CALC A/G RATIO (test code = 2234) 2.5 RATIO BILIRUBIN, TOTAL (test code = 2207) <0.2 MG/DL ALKALINE PHOSPHATASE (test code = 2204) 106 U/L AST (test code = 2218) 15 U/L ALT (test code = 2219) 12 U/L Regan HedrickCBC W/AUTO [id number] 00:00:00* Test Item Value Reference Range Interpretation Comme nts WBC (test code = 1001) 7.1 K/UL RBC (test code = 1002) 4.35 M/UL HEMOGLOBIN (test code = 1003) 13.8 G/DL HEMATOCRIT (test code = 1004) 39.7 % MCV (test code = 1005) 91.3 fL MCH (test code = 1006) 31.7 PG MCHC (test code = 1007) 34.8 G/DL RDW (test code = 1038) 12.6 % NEUTROPHILS (test code = 1008) 60.3 % LYMPHOCYTES (test code = 1010) 28.1 % MONOCYTES (test code = 1011) 7.2 % EOSINOPHILS (test code = 1012) 2.7 % BASOPHILS (test code = 1013) 1.4 % IMMATURE GRANULOCYTES (test code = 1036) 0.3 % NUCLEATED RBCS (test code = 1065) 0.0 /100WBC'S PLATELET COUNT (test code = 1015) 417 K/UL ABSOLUTE NEUTROPHILS (test c ode = 1066) 4.30 K/UL ABSOLUTE LYMPHOCYTES (test c ode = 1067) 2.00 K/UL ABSOLUTE MONOCYTES (test cod e = 1068) 0.51 K/UL ABSOLUTE EOSINOPHILS (test c ode = 1040) 0.19 K/UL ABSOLUTE BASOPHILS (test cod e = 1069) 0.10 K/UL ABS IMMATURE GRANULOCYTES (t est code = 1020) 0.02 K/UL ABS NUCLEATED RBCS (test cod e = 67740) 0.00 K/UL Regan HedrickRPR REFLEX TO T. PALLIDUM - [id number] 00:00:00* Test Item Value Reference Range Interpretation Comme nts RPR (test code = 75900) NON-REACTIVE RPR TITER (test code = 3500) NOT INDIC. TITER Regan HedrickHEMOGLOBIN [id number] 00:00:00* Test Item Value Reference Range Interpretation Comme trip HEMOGLOBIN A1c (test code = 08093) 5.8 % Regan HedrickVITAMIN B 12 AND FOLIC [id number] 00:00:00* Test Item Value Reference Range Interpretation Comme nts VITAMIN B-12 (test code = 2840) 539 PG/ML FOLIC ACID (test code = 2695) 8.7 UG/L Regan [id number] 00:00:00* Test Item Value Reference Range Interpretation Comme nts MAGNESIUM (test code = 2226) 2.2 MG/DL Regan HedrickCOMPREHENSIVE METABOLIC [id number] 00:00:00* Test Item Value Reference Range Interpretation Comme nts GLUCOSE (test code = 2217) 109 MG/DL BUN (test code = 2208) 29 MG/DL CREATININE (test code = 2214) 0.98 MG/DL eGFR (2020 CKD-EPI) (test co de = 06964) 64 ML/MIN/1.73 CALC BUN/CREAT (test code = 2235) 30 RATIO SODIUM (test code = 2231) 139 MEQ/L POTASSIUM (test code = 2228) 4.4 MEQ/L CHLORIDE (test code = 2215) 102 MEQ/L CARBON DIOXIDE (test code = 2206) 22 MEQ/L CALCIUM (test code = 2209) 10.7 MG/DL PROTEIN, TOTAL (test code = 2229) 6.9 G/DL ALBUMIN (test code = 2201) 4.9 G/DL CALC GLOBULIN (test code = 2240) 2.0 G/DL CALC A/G RATIO (test code = 2234) 2.5 RATIO BILIRUBIN, TOTAL (test code = 2207) <0.2 MG/DL ALKALINE PHOSPHATASE (test code = 2204) 106 U/L AST (test code = 2218) 15 U/L ALT (test code = 2219) 12 U/L Regan HedrickCBC W/AUTO [id number] 00:00:00* Test Item Value Reference Range Interpretation Comme nts WBC (test code = 1001) 7.1 K/UL RBC (test code = 1002) 4.35 M/UL HEMOGLOBIN (test code = 1003) 13.8 G/DL HEMATOCRIT (test code = 1004) 39.7 % MCV (test code = 1005) 91.3 fL MCH (test code = 1006) 31.7 PG MCHC (test code = 1007) 34.8 G/DL RDW (test code = 1038) 12.6 % NEUTROPHILS (test code = 1008) 60.3 % LYMPHOCYTES (test code = 1010) 28.1 % MONOCYTES (test code = 1011) 7.2 % EOSINOPHILS (test code = 1012) 2.7 % BASOPHILS (test code = 1013) 1.4 % IMMATURE GRANULOCYTES (test code = 1036) 0.3 % NUCLEATED RBCS (test code = 1065) 0.0 /100WBC'S PLATELET COUNT (test code = 1015) 417 K/UL ABSOLUTE NEUTROPHILS (test c ode = 1066) 4.30 K/UL ABSOLUTE LYMPHOCYTES (test c ode = 1067) 2.00 K/UL ABSOLUTE MONOCYTES (test cod e = 1068) 0.51 K/UL ABSOLUTE EOSINOPHILS (test c ode = 1040) 0.19 K/UL ABSOLUTE BASOPHILS (test cod e = 1069) 0.10 K/UL ABS IMMATURE GRANULOCYTES (t est code = 1020) 0.02 K/UL ABS NUCLEATED RBCS (test cod e = 20263) 0.00 K/UL Regan Raymond RyleyRPR REFLEX TO T. PALLIDUM - [id number] 00:00:00* Test Item Value Reference Range Interpretation Comme nts RPR (test code = 97245) NON-REACTIVE RPR TITER (test code = 3500) NOT INDIC. TITER Regan Raymond RyleyHEMOGLOBIN [id number] 00:00:00* Test Item Value Reference Range Interpretation Comme nts HEMOGLOBIN A1c (test code = 17248) 5.8 % Regan Raymond RyleyVITAMIN B 12 AND FOLIC [id number] 00:00:00* Test Item Value Reference Range Interpretation Comme nts VITAMIN B-12 (test code = 2840) 539 PG/ML FOLIC ACID (test code = 2695) 8.7 UG/L Regan Raymond [id number] 00:00:00* Test Item Value Reference Range Interpretation Comme nts MAGNESIUM (test code = 2226) 2.2 MG/DL Regan Mandi RyleyCOMPREHENSIVE METABOLIC [id number] 00:00:00* Test Item Value Reference Range Interpretation Comme nts GLUCOSE (test code = 2217) 109 MG/DL BUN (test code = 2208) 29 MG/DL CREATININE (test code = 2214) 0.98 MG/DL eGFR (2020 CKD-EPI) (test co de = 14390) 64 ML/MIN/1.73 CALC BUN/CREAT (test code = 2235) 30 RATIO SODIUM (test code = 2231) 139 MEQ/L POTASSIUM (test code = 2228) 4.4 MEQ/L CHLORIDE (test code = 2215) 102 MEQ/L CARBON DIOXIDE (test code = 2206) 22 MEQ/L CALCIUM (test code = 2209) 10.7 MG/DL PROTEIN, TOTAL (test code = 2229) 6.9 G/DL ALBUMIN (test code = 2201) 4.9 G/DL CALC GLOBULIN (test code = 2240) 2.0 G/DL CALC A/G RATIO (test code = 2234) 2.5 RATIO BILIRUBIN, TOTAL (test code = 2207) <0.2 MG/DL ALKALINE PHOSPHATASE (test code = 2204) 106 U/L AST (test code = 2218) 15 U/L ALT (test code = 2219) 12 U/L Regan Raymond [facility]WH[facility] [id number] 00:00:00* Test Item Value Reference Range Interpretation Comme nts WBC (test code = 1001) 7.1 K/UL RBC (test code = 1002) 4.35 M/UL HEMOGLOBIN (test code = 1003) 13.8 G/DL HEMATOCRIT (test code = 1004) 39.7 % MCV (test code = 1005) 91.3 fL MCH (test code = 1006) 31.7 PG MCHC (test code = 1007) 34.8 G/DL RDW (test code = 1038) 12.6 % NEUTROPHILS (test code = 1008) 60.3 % LYMPHOCYTES (test code = 1010) 28.1 % MONOCYTES (test code = 1011) 7.2 % EOSINOPHILS (test code = 1012) 2.7 % BASOPHILS (test code = 1013) 1.4 % IMMATURE GRANULOCYTES (test code = 1036) 0.3 % NUCLEATED RBCS (test code = 1065) 0.0 /100WBC'S PLATELET COUNT (test code = 1015) 417 K/UL ABSOLUTE NEUTROPHILS (test c ode = 1066) 4.30 K/UL ABSOLUTE LYMPHOCYTES (test c ode = 1067) 2.00 K/UL ABSOLUTE MONOCYTES (test cod e = 1068) 0.51 K/UL ABSOLUTE EOSINOPHILS (test c ode = 1040) 0.19 K/UL ABSOLUTE BASOPHILS (test cod e = 1069) 0.10 K/UL ABS IMMATURE GRANULOCYTES (t est code = 1020) 0.02 K/UL ABS NUCLEATED RBCS (test cod e = 13519) 0.00 K/UL Regan HedrickRPR REFLEX TO T. PALLIDUM - [id number] 00:00:00* Test Item Value Reference Range Interpretation Comme nts RPR (test code = 47212) NON-REACTIVE RPR TITER (test code = 3500) NOT INDIC. TITER Regan HedrickHEMOGLOBIN [id number] 00:00:00* Test Item Value Reference Range Interpretation Comme trip HEMOGLOBIN A1c (test code = 94651) 5.8 % Regan HedrickVITAMIN B 12 AND FOLIC [id number] 00:00:00* Test Item Value Reference Range Interpretation Comme nts VITAMIN B-12 (test code = 2840) 539 PG/ML FOLIC ACID (test code = 2695) 8.7 UG/L Regan [id number] 00:00:00* Test Item Value Reference Range Interpretation Comme nts MAGNESIUM (test code = 2226) 2.2 MG/DL Regan HedrickCOMPREHENSIVE METABOLIC [id number] 00:00:00* Test Item Value Reference Range Interpretation Comme nts GLUCOSE (test code = 2217) 109 MG/DL BUN (test code = 2208) 29 MG/DL CREATININE (test code = 2214) 0.98 MG/DL eGFR (2020 CKD-EPI) (test co de = 53543) 64 ML/MIN/1.73 CALC BUN/CREAT (test code = 2235) 30 RATIO SODIUM (test code = 2231) 139 MEQ/L POTASSIUM (test code = 2228) 4.4 MEQ/L CHLORIDE (test code = 2215) 102 MEQ/L CARBON DIOXIDE (test code = 2206) 22 MEQ/L CALCIUM (test code = 2209) 10.7 MG/DL PROTEIN, TOTAL (test code = 2229) 6.9 G/DL ALBUMIN (test code = 2201) 4.9 G/DL CALC GLOBULIN (test code = 2240) 2.0 G/DL CALC A/G RATIO (test code = 2234) 2.5 RATIO BILIRUBIN, TOTAL (test code = 2207) <0.2 MG/DL ALKALINE PHOSPHATASE (test code = 2204) 106 U/L AST (test code = 2218) 15 U/L ALT (test code = 2219) 12 U/L Regan HedrickCBC W/AUTO [id number] 00:00:00* Test Item Value Reference Range Interpretation Comme nts WBC (test code = 1001) 7.1 K/UL RBC (test code = 1002) 4.35 M/UL HEMOGLOBIN (test code = 1003) 13.8 G/DL HEMATOCRIT (test code = 1004) 39.7 % MCV (test code = 1005) 91.3 fL MCH (test code = 1006) 31.7 PG MCHC (test code = 1007) 34.8 G/DL RDW (test code = 1038) 12.6 % NEUTROPHILS (test code = 1008) 60.3 % LYMPHOCYTES (test code = 1010) 28.1 % MONOCYTES (test code = 1011) 7.2 % EOSINOPHILS (test code = 1012) 2.7 % BASOPHILS (test code = 1013) 1.4 % IMMATURE GRANULOCYTES (test code = 1036) 0.3 % NUCLEATED RBCS (test code = 1065) 0.0 /100WBC'S PLATELET COUNT (test code = 1015) 417 K/UL ABSOLUTE NEUTROPHILS (test c ode = 1066) 4.30 K/UL ABSOLUTE LYMPHOCYTES (test c ode = 1067) 2.00 K/UL ABSOLUTE MONOCYTES (test cod e = 1068) 0.51 K/UL ABSOLUTE EOSINOPHILS (test c ode = 1040) 0.19 K/UL ABSOLUTE BASOPHILS (test cod e = 1069) 0.10 K/UL ABS IMMATURE GRANULOCYTES (t est code = 1020) 0.02 K/UL ABS NUCLEATED RBCS (test cod e = 67209) 0.00 K/UL Regan HedrickRPR REFLEX TO T. PALLIDUM - [id number] 00:00:00* Test Item Value Reference Range Interpretation Comme nts RPR (test code = 78578) NON-REACTIVE RPR TITER (test code = 3500) NOT INDIC. TITER Regan HedrickHEMOGLOBIN [id number] 00:00:00* Test Item Value Reference Range Interpretation Comme trip HEMOGLOBIN A1c (test code = 50045) 5.8 % Regan HedrickVITAMIN B 12 AND FOLIC [id number] 00:00:00* Test Item Value Reference Range Interpretation Comme trip VITAMIN B-12 (test code = 2840) 539 PG/ML FOLIC ACID (test code = 2695) 8.7 UG/L Regan [id number] 00:00:00* Test Item Value Reference Range Interpretation Comme trip MAGNESIUM (test code = 2226) 2.2 MG/DL Regan HedrickCOMPREHENSIVE METABOLIC [id number] 00:00:00* Test Item Value Reference Range Interpretation Comme trip GLUCOSE (test code = 2217) 109 MG/DL BUN (test code = 2208) 29 MG/DL CREATININE (test code = 2214) 0.98 MG/DL eGFR (2020 CKD-EPI) (test co de = 82143) 64 ML/MIN/1.73 CALC BUN/CREAT (test code = 2235) 30 RATIO SODIUM (test code = 2231) 139 MEQ/L POTASSIUM (test code = 2228) 4.4 MEQ/L CHLORIDE (test code = 2215) 102 MEQ/L CARBON DIOXIDE (test code = 2206) 22 MEQ/L CALCIUM (test code = 2209) 10.7 MG/DL PROTEIN, TOTAL (test code = 2229) 6.9 G/DL ALBUMIN (test code = 2201) 4.9 G/DL CALC GLOBULIN (test code = 2240) 2.0 G/DL CALC A/G RATIO (test code = 2234) 2.5 RATIO BILIRUBIN, TOTAL (test code = 2207) <0.2 MG/DL ALKALINE PHOSPHATASE (test code = 2204) 106 U/L AST (test code = 2218) 15 U/L ALT (test code = 2219) 12 U/L Regan HedrickCBC W/AUTO [id number] 00:00:00* Test Item Value Reference Range Interpretation Comme nts WBC (test code = 1001) 7.1 K/UL RBC (test code = 1002) 4.35 M/UL HEMOGLOBIN (test code = 1003) 13.8 G/DL HEMATOCRIT (test code = 1004) 39.7 % MCV (test code = 1005) 91.3 fL MCH (test code = 1006) 31.7 PG MCHC (test code = 1007) 34.8 G/DL RDW (test code = 1038) 12.6 % NEUTROPHILS (test code = 1008) 60.3 % LYMPHOCYTES (test code = 1010) 28.1 % MONOCYTES (test code = 1011) 7.2 % EOSINOPHILS (test code = 1012) 2.7 % BASOPHILS (test code = 1013) 1.4 % IMMATURE GRANULOCYTES (test code = 1036) 0.3 % NUCLEATED RBCS (test code = 1065) 0.0 /100WBC'S PLATELET COUNT (test code = 1015) 417 K/UL ABSOLUTE NEUTROPHILS (test c ode = 1066) 4.30 K/UL ABSOLUTE LYMPHOCYTES (test c ode = 1067) 2.00 K/UL ABSOLUTE MONOCYTES (test cod e = 1068) 0.51 K/UL ABSOLUTE EOSINOPHILS (test c ode = 1040) 0.19 K/UL ABSOLUTE BASOPHILS (test cod e = 1069) 0.10 K/UL ABS IMMATURE GRANULOCYTES (t est code = 1020) 0.02 K/UL ABS NUCLEATED RBCS (test cod e = 90040) 0.00 K/UL Regan HedrickRPR REFLEX TO T. PALLIDUM - [id number] 00:00:00* Test Item Value Reference Range Interpretation Comme nts RPR (test code = 47341) NON-REACTIVE RPR TITER (test code = 3500) NOT INDIC. TITER Regan HedrickHEMOGLOBIN [id number] 00:00:00* Test Item Value Reference Range Interpretation Comme nts HEMOGLOBIN A1c (test code = 97543) 5.8 % Regan HedrickVITAMIN B 12 AND FOLIC [id number] 00:00:00* Test Item Value Reference Range Interpretation Comme nts VITAMIN B-12 (test code = 2840) 539 PG/ML FOLIC ACID (test code = 2695) 8.7 UG/L Regan [id number] 00:00:00* Test Item Value Reference Range Interpretation Comme nts MAGNESIUM (test code = 2226) 2.2 MG/DL Regan HedrickCOMPREHENSIVE METABOLIC [id number] 00:00:00* Test Item Value Reference Range Interpretation Comme nts GLUCOSE (test code = 2217) 109 MG/DL BUN (test code = 2208) 29 MG/DL CREATININE (test code = 2214) 0.98 MG/DL eGFR (2020 CKD-EPI) (test co de = 20783) 64 ML/MIN/1.73 CALC BUN/CREAT (test code = 2235) 30 RATIO SODIUM (test code = 2231) 139 MEQ/L POTASSIUM (test code = 2228) 4.4 MEQ/L CHLORIDE (test code = 2215) 102 MEQ/L CARBON DIOXIDE (test code = 2206) 22 MEQ/L CALCIUM (test code = 2209) 10.7 MG/DL PROTEIN, TOTAL (test code = 2229) 6.9 G/DL ALBUMIN (test code = 2201) 4.9 G/DL CALC GLOBULIN (test code = 2240) 2.0 G/DL CALC A/G RATIO (test code = 2234) 2.5 RATIO BILIRUBIN, TOTAL (test code = 2207) <0.2 MG/DL ALKALINE PHOSPHATASE (test code = 2204) 106 U/L AST (test code = 2218) 15 U/L ALT (test code = 2219) 12 U/L Regan HedrickCBC W/AUTO [id number] 00:00:00* Test Item Value Reference Range Interpretation Comme nts WBC (test code = 1001) 7.1 K/UL RBC (test code = 1002) 4.35 M/UL HEMOGLOBIN (test code = 1003) 13.8 G/DL HEMATOCRIT (test code = 1004) 39.7 % MCV (test code = 1005) 91.3 fL MCH (test code = 1006) 31.7 PG MCHC (test code = 1007) 34.8 G/DL RDW (test code = 1038) 12.6 % NEUTROPHILS (test code = 1008) 60.3 % LYMPHOCYTES (test code = 1010) 28.1 % MONOCYTES (test code = 1011) 7.2 % EOSINOPHILS (test code = 1012) 2.7 % BASOPHILS (test code = 1013) 1.4 % IMMATURE GRANULOCYTES (test code = 1036) 0.3 % NUCLEATED RBCS (test code = 1065) 0.0 /100WBC'S PLATELET COUNT (test code = 1015) 417 K/UL ABSOLUTE NEUTROPHILS (test c ode = 1066) 4.30 K/UL ABSOLUTE LYMPHOCYTES (test c ode = 1067) 2.00 K/UL ABSOLUTE MONOCYTES (test cod e = 1068) 0.51 K/UL ABSOLUTE EOSINOPHILS (test c ode = 1040) 0.19 K/UL ABSOLUTE BASOPHILS (test cod e = 1069) 0.10 K/UL ABS IMMATURE GRANULOCYTES (t est code = 1020) 0.02 K/UL ABS NUCLEATED RBCS (test cod e = 02002) 0.00 K/UL Regan HedrickRPR REFLEX TO T. PALLIDUM - [id number] 00:00:00* Test Item Value Reference Range Interpretation Comme nts RPR (test code = 60705) NON-REACTIVE RPR TITER (test code = 3500) NOT INDIC. TITER Regan HedrickHEMOGLOBIN [id number] 00:00:00* Test Item Value Reference Range Interpretation Comme nts HEMOGLOBIN A1c (test code = 52539) 5.8 % Regan HedrickVITAMIN B 12 AND FOLIC [id number] 00:00:00* Test Item Value Reference Range Interpretation Comme nts VITAMIN B-12 (test code = 2840) 539 PG/ML FOLIC ACID (test code = 2695) 8.7 UG/L Regan [id number] 00:00:00* Test Item Value Reference Range Interpretation Comme nts MAGNESIUM (test code = 2226) 2.2 MG/DL Regan [id number] 03:24:24* Test Item Value Reference Range Interpretation Comme nts PTT (test code = 1403) 28.6 SECONDS 25.2-40.0 PROTHROMBIN TIME (PT)2023-04-11 03:24:24* Test Item Value Reference Range Interpretation Comme nts PROTHROMBIN TIME (PT) (test code = 1402) 12.6 SECONDS 12.5-14.7 INR (test code = 55143) 0.9 SEE BELOW CURRENT RECOMMENDATIONS ARE FOR AN INR OF 2.0-3.0 FOR ALL PATIENTS ON VITAMIN K ANTAGONISTS, EXCEPT THOSE WITH PROSTHETIC HEART VALVES, FOR WHOM INR OF 2.5-3.5 IS RECOMMENDED. UNLESS OTHERWISE INDICATED, ALL TESTING PERFORMED AT [facility] [address] [place] [id number] PROPOSITION PLAYER: MEHUL EASLEY M.D. CLIA NUMBER [id number] [facility] [place]. [id number] CBC W/AUTO DIFF WITH [id number] 01:49:52* Test Item Value Reference Range Interpretation Comme nts WBC (test code = 1001) 7.8 K/UL 3.5-11.0 RBC (test code = 1002) 4.32 M/UL 3.80-5.40 HEMOGLOBIN (test code = 1003) 13.5 G/DL 11.5-15.5 HEMATOCRIT (test code = 1004) 39.4 % 34.0-45.0 MCV (test code = 1005) 91.2 fL 80.0-99.0 MCH (test code = 1006) 31.3 PG 25.0-33.0 MCHC (test code = 1007) 34.3 G/DL 31.0-36.0 RDW (test code = 1038) 12.2 % 11.5-15.0 NEUTROPHILS (test code = 1008) 60.0 % LYMPHOCYTES (test code = 1010) 30.6 % MONOCYTES (test code = 1011) 5.5 % EOSINOPHILS (test code = 1012) 2.6 % BASOPHILS (test code = 1013) 0.9 % IMMATURE GRANULOCYTES (test code = 1036) 0.4 % NUCLEATED RBCS (test code = 1065) 0.0 /100 WBC'S See_Comment [Automated messa ge] The system which generated this result transmitted reference range: 0.0. The reference range was not used to interpret this result as normal/abnormal. PLATELET COUNT (test code = 1015) 398 K/UL 130-400 ABSOLUTE NEUTROPHILS (test code = 1066) 4.69 K/UL 1.50-7.50 ABSOLUTE LYMPHOCYTES (test code = 1067) 2.39 K/UL 1.00-4.00 ABSOLUTE MONOCYTES (test code = 1068) 0.43 K/UL 0.20-1.00 ABSOLUTE EOSINOPHILS (test code = 1040) 0.20 K/UL 0.00-0.50 ABSOLUTE BASOPHILS (test code = 1069) 0.07 K/UL 0.00-0.20 ABS IMMATURE GRANULOCYTES (test code = 1020) 0.03 K/UL 0.00-0.10 ABS NUCLEATED RBCS (test code = 82376) 0.00 K/UL 0.00-0.11 CBC W/AUTO [id number] 00:00:00* Test Item Value Reference Range Interpretation Comme nts WBC (test code = 1001) 7.8 K/UL RBC (test code = 1002) 4.32 M/UL HEMOGLOBIN (test code = 1003) 13.5 G/DL HEMATOCRIT (test code = 1004) 39.4 % MCV (test code = 1005) 91.2 fL MCH (test code = 1006) 31.3 PG MCHC (test code = 1007) 34.3 G/DL RDW (test code = 1038) 12.2 % NEUTROPHILS (test code = 1008) 60.0 % LYMPHOCYTES (test code = 1010) 30.6 % MONOCYTES (test code = 1011) 5.5 % EOSINOPHILS (test code = 1012) 2.6 % BASOPHILS (test code = 1013) 0.9 % IMMATURE GRANULOCYTES (test code = 1036) 0.4 % NUCLEATED RBCS (test code = 1065) 0.0 /100WBC'S PLATELET COUNT (test code = 1015) 398 K/UL ABSOLUTE NEUTROPHILS (test c ode = 1066) 4.69 K/UL ABSOLUTE LYMPHOCYTES (test c ode = 1067) 2.39 K/UL ABSOLUTE MONOCYTES (test cod e = 1068) 0.43 K/UL ABSOLUTE EOSINOPHILS (test c ode = 1040) 0.20 K/UL ABSOLUTE BASOPHILS (test cod e = 1069) 0.07 K/UL ABS IMMATURE GRANULOCYTES (t est code = 1020) 0.03 K/UL ABS NUCLEATED RBCS (test cod e = 78177) 0.00 K/UL Regan [id number] 00:00:00* Test Item Value Reference Range Interpretation Comme nts PTT (test code = 1403) 28.6 SECONDS Regan HedrickPROTHROMBIN TIME (PT)2023-04-11 00:00:00* Test Item Value Reference Range Interpretation Comme nts PROTHROMBIN TIME (PT) (test code = 1402) 12.6 SECONDS INR (test code = 27700) 0.9 Regan Raymond AustinCBC W/AUTO [id number] 00:00:00* Test Item Value Reference Range Interpretation Comme nts WBC (test code = 1001) 7.8 K/UL RBC (test code = 1002) 4.32 M/UL HEMOGLOBIN (test code = 1003) 13.5 G/DL HEMATOCRIT (test code = 1004) 39.4 % MCV (test code = 1005) 91.2 fL MCH (test code = 1006) 31.3 PG MCHC (test code = 1007) 34.3 G/DL RDW (test code = 1038) 12.2 % NEUTROPHILS (test code = 1008) 60.0 % LYMPHOCYTES (test code = 1010) 30.6 % MONOCYTES (test code = 1011) 5.5 % EOSINOPHILS (test code = 1012) 2.6 % BASOPHILS (test code = 1013) 0.9 % IMMATURE GRANULOCYTES (test code = 1036) 0.4 % NUCLEATED RBCS (test code = 1065) 0.0 /100WBC'S PLATELET COUNT (test code = 1015) 398 K/UL ABSOLUTE NEUTROPHILS (test c ode = 1066) 4.69 K/UL ABSOLUTE LYMPHOCYTES (test c ode = 1067) 2.39 K/UL ABSOLUTE MONOCYTES (test cod e = 1068) 0.43 K/UL ABSOLUTE EOSINOPHILS (test c ode = 1040) 0.20 K/UL ABSOLUTE BASOPHILS (test cod e = 1069) 0.07 K/UL ABS IMMATURE GRANULOCYTES (t est code = 1020) 0.03 K/UL ABS NUCLEATED RBCS (test cod e = 67015) 0.00 K/UL Regan [id number] 00:00:00* Test Item Value Reference Range Interpretation Comme nts PTT (test code = 1403) 28.6 SECONDS Regan HedrickPROTHROMBIN TIME (PT)2023-04-11 00:00:00* Test Item Value Reference Range Interpretation Comme nts PROTHROMBIN TIME (PT) (test code = 1402) 12.6 SECONDS INR (test code = 48754) 0.9 Regan HedrickCBC W/AUTO [id number] 00:00:00* Test Item Value Reference Range Interpretation Comme nts WBC (test code = 1001) 7.8 K/UL RBC (test code = 1002) 4.32 M/UL HEMOGLOBIN (test code = 1003) 13.5 G/DL HEMATOCRIT (test code = 1004) 39.4 % MCV (test code = 1005) 91.2 fL MCH (test code = 1006) 31.3 PG MCHC (test code = 1007) 34.3 G/DL RDW (test code = 1038) 12.2 % NEUTROPHILS (test code = 1008) 60.0 % LYMPHOCYTES (test code = 1010) 30.6 % MONOCYTES (test code = 1011) 5.5 % EOSINOPHILS (test code = 1012) 2.6 % BASOPHILS (test code = 1013) 0.9 % IMMATURE GRANULOCYTES (test code = 1036) 0.4 % NUCLEATED RBCS (test code = 1065) 0.0 /100WBC'S PLATELET COUNT (test code = 1015) 398 K/UL ABSOLUTE NEUTROPHILS (test c ode = 1066) 4.69 K/UL ABSOLUTE LYMPHOCYTES (test c ode = 1067) 2.39 K/UL ABSOLUTE MONOCYTES (test cod e = 1068) 0.43 K/UL ABSOLUTE EOSINOPHILS (test c ode = 1040) 0.20 K/UL ABSOLUTE BASOPHILS (test cod e = 1069) 0.07 K/UL ABS IMMATURE GRANULOCYTES (t est code = 1020) 0.03 K/UL ABS NUCLEATED RBCS (test cod e = 72873) 0.00 K/UL Regan [id number] 00:00:00* Test Item Value Reference Range Interpretation Comme nts PTT (test code = 1403) 28.6 SECONDS Regan HedrickPROTHROMBIN TIME (PT)2023-04-11 00:00:00* Test Item Value Reference Range Interpretation Comme nts PROTHROMBIN TIME (PT) (test code = 1402) 12.6 SECONDS INR (test code = 91921) 0.9 Regan HedrickCBC W/AUTO [id number] 00:00:00* Test Item Value Reference Range Interpretation Comme nts WBC (test code = 1001) 7.8 K/UL RBC (test code = 1002) 4.32 M/UL HEMOGLOBIN (test code = 1003) 13.5 G/DL HEMATOCRIT (test code = 1004) 39.4 % MCV (test code = 1005) 91.2 fL MCH (test code = 1006) 31.3 PG MCHC (test code = 1007) 34.3 G/DL RDW (test code = 1038) 12.2 % NEUTROPHILS (test code = 1008) 60.0 % LYMPHOCYTES (test code = 1010) 30.6 % MONOCYTES (test code = 1011) 5.5 % EOSINOPHILS (test code = 1012) 2.6 % BASOPHILS (test code = 1013) 0.9 % IMMATURE GRANULOCYTES (test code = 1036) 0.4 % NUCLEATED RBCS (test code = 1065) 0.0 /100WBC'S PLATELET COUNT (test code = 1015) 398 K/UL ABSOLUTE NEUTROPHILS (test c ode = 1066) 4.69 K/UL ABSOLUTE LYMPHOCYTES (test c ode = 1067) 2.39 K/UL ABSOLUTE MONOCYTES (test cod e = 1068) 0.43 K/UL ABSOLUTE EOSINOPHILS (test c ode = 1040) 0.20 K/UL ABSOLUTE BASOPHILS (test cod e = 1069) 0.07 K/UL ABS IMMATURE GRANULOCYTES (t est code = 1020) 0.03 K/UL ABS NUCLEATED RBCS (test cod e = 92166) 0.00 K/UL Regan [id number] 00:00:00* Test Item Value Reference Range Interpretation Comme nts PTT (test code = 1403) 28.6 SECONDS Regan Raymond RyleyPROTHROMBIN TIME (PT)2023-04-11 00:00:00* Test Item Value Reference Range Interpretation Comme nts PROTHROMBIN TIME (PT) (test code = 1402) 12.6 SECONDS INR (test code = 11000) 0.9 Regan Raymond RyleyCBC W/AUTO [id number] 00:00:00* Test Item Value Reference Range Interpretation Comme nts WBC (test code = 1001) 7.8 K/UL RBC (test code = 1002) 4.32 M/UL HEMOGLOBIN (test code = 1003) 13.5 G/DL HEMATOCRIT (test code = 1004) 39.4 % MCV (test code = 1005) 91.2 fL MCH (test code = 1006) 31.3 PG MCHC (test code = 1007) 34.3 G/DL RDW (test code = 1038) 12.2 % NEUTROPHILS (test code = 1008) 60.0 % LYMPHOCYTES (test code = 1010) 30.6 % MONOCYTES (test code = 1011) 5.5 % EOSINOPHILS (test code = 1012) 2.6 % BASOPHILS (test code = 1013) 0.9 % IMMATURE GRANULOCYTES (test code = 1036) 0.4 % NUCLEATED RBCS (test code = 1065) 0.0 /100WBC'S PLATELET COUNT (test code = 1015) 398 K/UL ABSOLUTE NEUTROPHILS (test c ode = 1066) 4.69 K/UL ABSOLUTE LYMPHOCYTES (test c ode = 1067) 2.39 K/UL ABSOLUTE MONOCYTES (test cod e = 1068) 0.43 K/UL ABSOLUTE EOSINOPHILS (test c ode = 1040) 0.20 K/UL ABSOLUTE BASOPHILS (test cod e = 1069) 0.07 K/UL ABS IMMATURE GRANULOCYTES (t est code = 1020) 0.03 K/UL ABS NUCLEATED RBCS (test cod e = 53542) 0.00 K/UL Regan Raymond [id number] 00:00:00* Test Item Value Reference Range Interpretation Comme nts PTT (test code = 1403) 28.6 SECONDS Regan Mandi RyleyPROTHROMBIN TIME (PT)2023-04-11 00:00:00* Test Item Value Reference Range Interpretation Comme nts PROTHROMBIN TIME (PT) (test code = 1402) 12.6 SECONDS INR (test code = 90420) 0.9 Regan Mandi RyleyCBC W/AUTO [id number] 00:00:00* Test Item Value Reference Range Interpretation Comme nts WBC (test code = 1001) 7.8 K/UL RBC (test code = 1002) 4.32 M/UL HEMOGLOBIN (test code = 1003) 13.5 G/DL HEMATOCRIT (test code = 1004) 39.4 % MCV (test code = 1005) 91.2 fL MCH (test code = 1006) 31.3 PG MCHC (test code = 1007) 34.3 G/DL RDW (test code = 1038) 12.2 % NEUTROPHILS (test code = 1008) 60.0 % LYMPHOCYTES (test code = 1010) 30.6 % MONOCYTES (test code = 1011) 5.5 % EOSINOPHILS (test code = 1012) 2.6 % BASOPHILS (test code = 1013) 0.9 % IMMATURE GRANULOCYTES (test code = 1036) 0.4 % NUCLEATED RBCS (test code = 1065) 0.0 /100WBC'S PLATELET COUNT (test code = 1015) 398 K/UL ABSOLUTE NEUTROPHILS (test c ode = 1066) 4.69 K/UL ABSOLUTE LYMPHOCYTES (test c ode = 1067) 2.39 K/UL ABSOLUTE MONOCYTES (test cod e = 1068) 0.43 K/UL ABSOLUTE EOSINOPHILS (test c ode = 1040) 0.20 K/UL ABSOLUTE BASOPHILS (test cod e = 1069) 0.07 K/UL ABS IMMATURE GRANULOCYTES (t est code = 1020) 0.03 K/UL ABS NUCLEATED RBCS (test cod e = 24338) 0.00 K/UL Regan Raymond [id number] 00:00:00* Test Item Value Reference Range Interpretation Comme nts PTT (test code = 1403) 28.6 SECONDS Regan HedrickPROTHROMBIN TIME (PT)2023-04-11 00:00:00* Test Item Value Reference Range Interpretation Comme nts PROTHROMBIN TIME (PT) (test code = 1402) 12.6 SECONDS INR (test code = 08191) 0.9 Regan Raymond RyleyCBC W/AUTO [id number] 00:00:00* Test Item Value Reference Range Interpretation Comme nts WBC (test code = 1001) 7.8 K/UL RBC (test code = 1002) 4.32 M/UL HEMOGLOBIN (test code = 1003) 13.5 G/DL HEMATOCRIT (test code = 1004) 39.4 % MCV (test code = 1005) 91.2 fL MCH (test code = 1006) 31.3 PG MCHC (test code = 1007) 34.3 G/DL RDW (test code = 1038) 12.2 % NEUTROPHILS (test code = 1008) 60.0 % LYMPHOCYTES (test code = 1010) 30.6 % MONOCYTES (test code = 1011) 5.5 % EOSINOPHILS (test code = 1012) 2.6 % BASOPHILS (test code = 1013) 0.9 % IMMATURE GRANULOCYTES (test code = 1036) 0.4 % NUCLEATED RBCS (test code = 1065) 0.0 /100WBC'S PLATELET COUNT (test code = 1015) 398 K/UL ABSOLUTE NEUTROPHILS (test c ode = 1066) 4.69 K/UL ABSOLUTE LYMPHOCYTES (test c ode = 1067) 2.39 K/UL ABSOLUTE MONOCYTES (test cod e = 1068) 0.43 K/UL ABSOLUTE EOSINOPHILS (test c ode = 1040) 0.20 K/UL ABSOLUTE BASOPHILS (test cod e = 1069) 0.07 K/UL ABS IMMATURE GRANULOCYTES (t est code = 1020) 0.03 K/UL ABS NUCLEATED RBCS (test cod e = 67999) 0.00 K/UL Regan [id number] 00:00:00* Test Item Value Reference Range Interpretation Comme nts PTT (test code = 1403) 28.6 SECONDS Regan HedrickPROTHROMBIN TIME (PT)2023-04-11 00:00:00* Test Item Value Reference Range Interpretation Comme nts PROTHROMBIN TIME (PT) (test code = 1402) 12.6 SECONDS INR (test code = 45587) 0.9 Regan HedrickTransthoracic echo (TTE)2023-03-14 23:20:09* Test Item Value Reference Range Interpretation Comme nts Height (test code = 0809733987) 59 in Weight (test code = 7463031049) 145 lbs Systolic BP (test code = 9073892023) 152 mmHg Diastolic BP (test code = 2657821852) 95 mmHg Heart Rate (test code = 2593773533) 96 bpm LVOT diameter (test code = 2620575189) 2.00 cm LVOT area (test code = 2483040148) 3.10 cm2 BSA (test code = 2537938912) 1.61 m2 Ao root diam (test code = 5824422760) 2.44 cm Aortic root (test code = 8245589936) 2.44 cm Ao root annulus (test code = 8391068324) 2.44 cm LA size (test code = 4405056047) 3.5 cm LVIDD (test code = 6752303781) 3.50 cm Left Ventricular End Diastolic Volume by Teichholz Method (test code = 5676840) 49.8 mL IVS (test code = 2249598447) 0.72 cm Interventricular Septum Diastolic Thickness by 2D (test code = 9308641) 0.72 cm LVPWD (test code = 1684474993) 0.72 cm PW (test code = 6918738912) 0.72 cm 0.6-1.1 EF(Teich) (test code = 7810619515) 64.20 % LVIDS (test code = 9811124926) 2.28 cm Left Ventricular End Systolic Volume by Teichholz Method (test code = 7801407) 17.8 mL FS (test code = 6821623866) 34 % EF - 2D (test code = 40917430) 64.20 % MV Prop V (test code = 0190224953) 46.20 cm/s MV Peak E Julio (test code = 8150527245) 87.5 cm/s MV Peak A Julio (test code = 8828823568) 124.4 cm/s E/A ratio (test code = 3214324805) 0.70 ratio E wave decelartion time (test code = 7616377892) 0.25 s LAV(MOD-sp4) (test code = 7241345637) 44.00 mL Aortic valve mean velocity (test code = 8004536600) 99.5 cm/s Ao peak julio (test code = 1810877457) 142.0 cm/s Ao VTI (test code = 6028417091) 24.5 cm Ao max PG (test code = 3069257345) 8.10 mm[Hg] AV peak gradient (test code = 5392651376) 8.1 mmHg AV mean gradient (test code = 7984693575) 4.3 mmHg LVOT stroke volume (test code = 7123609359) 71.60 cm3 LVOT peak julio (test code = 1846964645) 117.3 cm/s LVOT mn grad (test code = 1924321518) 3.0 mmHg AV LVOT peak gradient (test code = 0589612281) 5.5 mmHg LVOT peak VTI (test code = 7882279964) 22.8 cm AV area by cont VTI (test code = 0464779098) 2.9 cm2 AV area peak julio (test code = 4545788839) 2.6 cm2 LV V1 mean (test code = 9830136646) 83.00 cm/s AV valve area (test code = 4036456839) 2.90 cm2 Tapse (test code = 3906745852) 1.60 cm LA Volume Index (BP) (test code = 9689321987) 25.6 mL/m2 LA volume (BP) (test code = 9312163804) 41.2 mL LAV(MOD-sp2) (test code = 7172820025) 38.70 mL Radiology Study observation (narrative) (test code = 05383-9) ZARINA (test code = ZARINA) ?Left?Ventricle: Left ventricle size is normal. Normal wall thickness. Normal wall motion. Normal systolic function with a visually estimated EF of 60 - 65%. Diastolic dysfunction. ?Tricuspid?Valve: Trace transvalvular regurgitation. Insufficient tricuspid regurgitation jet to estimate RVSP . ?RA pressure is 0-5 mmHg. ?Pericardium: Small pericardial effusion present. No indication of cardiac tamponade. Normal LV size, no IVC dilation, no chamber collapse. Left VentricleLeft ventricle size is normal. Normal wall thickness. Normal wall motion. Normal systolic function with a visually estimated EF of 60 - 65%. Diastolic dysfunction.Right VentricleRight ventricle size is normal. Normal systolic function.Left AtriumLeft atrium size is normal.Right AtriumRight atrium size is normal.IVC/SVCRA pressure is 0-5 mmHg.Mitral ValveMitral valve structure is grossly normal. Trace transvalvular regurgitation.Tricusp id ValveTricuspid valve structure is grossly normal. Trace transvalvular regurgitation. Insufficient tricuspid regurgitation jet to estimate RVSP . RA pressure is 0-5 mmHg.Aortic ValveAortic valve opens well.Pulmonic ValveNot well visualized.Ascending AortaNormal sized aortic root.PericardiumSmall pericardial effusion present. No indication of cardiac tamponade. Normal LV size, no IVC dilation, no chamber collapse.Study DetailsA complete echocardiogram was performed using 2D, color flow Doppler and spectral Doppler. The apical, parasternal and subcostal views were obtained. [facility]ARNELL CAD [id number] 09:02:37Name: Merlyn : 1960 Sex: F - SCR MAMM BILATERAL DARNELL CAD DIGITALBILATERAL DIGITAL SCREENING MAMMOGRAM 3D/2D WITH CAD: 06/22/2022LINICAL: Asymptomatic. Digital breast tomosynthesis was performed in addition to routine CC and MLO views. Current mammographic images were evaluated by [employer] CAD (computer-aided detection) software. No prior exams were available for comparison. The tissue of both breasts is heterogeneously dense. This may lower the sensitivity of mammography. There are benign calcifications in the right breast. No suspicious mass, architectural distortion, malignant type calcification, or lymph node abnormality detected. IMPRESSION: BENIGNThere is no mammographic evidence of malignancy. Resume annual screening mammography in one year. (06/23/2023) Escobar Parkinson M.D. et/penrad:06/27/2022 09:02:37 Venipuncturist: RT Go MM(R)(M), [facility] Mammographyletter sent: BIRADS 1-2 Normal Mammogram BI-RADS: 2 BenignSCR MAMM BILATERAL DARNELL CAD [id number] 09:02:37 Name: Merlyn : 1960 Sex: F* - SCR MAMM BILATERAL DARNELL CAD DIGITALBILATERAL DIGITAL SCREENING MAMMOGRAM 3D/2D WITH CAD: 06/22/2022LINICAL: Asymptomatic. Digital breasttomosynthesis was performed in addition to routine CC and MLO views. Current mammographic images were evaluated by [employer] Image[employer] CAD (computer-aided detection) software. No prior exams were available for comparison. The tissue of both breasts is heterogeneously dense. This may lower the sensitivity of mammography. There are benign calcifications in the right breast. No suspicious mass, architectural distortion, malignant type calcification, or lymph node abnormality detected. IMPRESSION:BENIGNThere is no mammographic evidence of malignancy. Resume annual screening mammography in one year. (06/23/2023) Escobar Parkinson M.D. et/penrad:06/27/2022 09:02:37 Venipuncturist: Pam Galvan MM, RT(R)(M), [facility] Mammographyletter sent: BIRADS 1-2 Normal Mammogram BI-RADS: 2 [id number] 06:27:44* Test Item Value Reference Range Interpretation Comme nts RPR RESULT (test code = 3501) NON-REACTIVE NON-REACTIVE RPR TITER (test code = 3500) NOT INDIC. TITER NOT INDIC. TSH, THIRD [id number] 05:55:55* Test Item Value Reference Range Interpretation Comme nts TSH, THIRD GENERATION (test code = 2821) 1.820 UIU/ML 0.400-4.100 UNLESS OTHERWISE INDICATED, ALL TESTING PERFORMED [facility] [address] [place] [address] PROPOSITION PLAYER: LIMA CASE M.D. CLIA NUMBER [id number] [facility] [place]. [id number] LIPID [id number] 05:30:21* Test Item Value Reference Range Interpretation Comme nts CHOLESTEROL (test code = 2210) 273 MG/DL <200 H TRIGLYCERIDES (test code = 2232) 117 MG/DL <150 HDL CHOLESTEROL (test code = 2220) 84 MG/DL >39 CALC LDL CHOL (test code = 2237) 166 MG/DL <100 H NOTE: CALCULATED LDL IS BASED ON DOREEN-HANNA METHOD WHICHINCLUDES ADJUSTABLE TRIGLYCERIDE:VLDL CHOLESTEROL RATIO.THIS FACTOR VARIES BY MEASURED TRIGLYCERIDE AND NON-HDLCHOLESTEROL CONCENTRATIONS WITH INCREASED CALCULATED LDL SEENIN HIGHER TRIGLYCERIDE OR LOWER NON-HDL SPECIMENS. FOR MOREINFORMATION, SEE CLIENT ANNOUNCEMENT AT [email or web address] RISK RATIO LDL/HDL (test code = 2237) 1.98 RATIO <3.22 COMPREHENSIVE METABOLIC [id number] 05:30:21* Test Item Value Reference Range Interpretation Comme [facility] GLUCOSE (test code = 2216) 90 MG/DL 70-99 BUN (test code = 2207) 14 MG/DL 8-23 CREATININE (test code = 2213) 0.57 MG/DL 0.60-1.30 L eGFR (2020 CKD-EPI) (test code = ) 103 ML/MIN/1.73 >60 CALC BUN/CREAT (test code = 2234) 25 RATIO 6-28 SODIUM (test code = 2230) 129 MEQ/L 133-146 L POTASSIUM (test code = 2227) 4.9 MEQ/L 3.5-5.4 CHLORIDE (test code = 2214) 92 MEQ/L 95-107 L CARBON DIOXIDE (test code = 2205) 22 MEQ/L 19-31 CALCIUM (test code = 2208) 10.2 MG/DL 8.5-10.5 PROTEIN, TOTAL (test code = 2228) 7.2 G/DL 6.1-8.3 ALBUMIN (test code = 2200) 4.6 G/DL 3.5-5.2 CALC GLOBULIN (test code = 0) 2.6 G/DL 1.9-3.7 CALC A/G RATIO (test code = 2233) 1.8 RATIO 1.0-2.6 BILIRUBIN, TOTAL (test code = 2206) 0.3 MG/DL See_Comment [Automated me ssage] The system which generated this result transmitted reference range: <=1.2. The reference range was not used to interpret this result as normal/abnormal. ALKALINE PHOSPHATASE (test code = 2203) 128 U/L 40-140 AST (test code = 2217) 21 U/L 9-40 ALT (test code = 2218) 8 U/L 5-40 HEMOGLOBIN [id number] 04:33:12* Test Item Value Reference Range Interpretation Comme [facility] HEMOGLOBIN A1c (test code = 85124) 5.6 % 4.2-5.6 HIV 1/2 4TH GEN, RFLX [id number] 04:22:16* Test Item Value Reference Range Interpretation Comme [facility] HIV 1/2 4TH GEN, RFLX CONF ( test code = 3514) NON-REACTIVE NON-REACTIVE HEPATITIS PANEL, [id number] 04:22:16* Test Item Value Reference Range Interpretation Comme nts HEPATITIS A IgM (test code = 95281) NON-REACTIVE NON-REACTIVE HEPATITIS B CORE IgM (test code = 4644) NON-REACTIVE NON-REACTIVE HEPATITIS B SURF AG (test code = 2739) NON-REACTIVE NON-REACTIVE HEPATITIS C ANTIBODY (test code = 4675) NON-REACTIVE NON-REACTIVE INTERPRETATION HEPATITIS A: (test code = 2552) (NOTE) Hepatitis A serology shows no evidence of acute hepatitis A. INTERPRETATION HEPATITIS B: (test code = 80923) (NOTE) Hepatitis B serology shows no evidence of acute hepatitis B andno indication of exposure to hepatitis B virus in the previous bret eight months. INTERPRETATION HEPATITIS C: (test code = 82668) (NOTE) Hepatitis C serology shows no evidence of exposure to hepatitisC virus at this time. It can take up to 12 months after exposure tothe hepatitis C virus for antibodies to become detectable in the blood in certain patients. CBC W/AUTO DIFF WITH [id number] 03:15:15* Test Item Value Reference Range Interpretation Comme [facility] WBC (test code = 1001) 9.0 K/UL 3.5-11.0 RBC (test code = 1002) 4.52 M/UL 3.80-5.40 HEMOGLOBIN (test code = 1003) 14.1 G/DL 11.5-15.5 HEMATOCRIT (test code = 1004) 39.6 % 34.0-45.0 MCV (test code = 1005) 87.6 fL 80.0-99.0 MCH (test code = 1006) 31.2 PG 25.0-33.0 MCHC (test code = 1007) 35.6 G/DL 31.0-36.0 RDW (test code = 1038) 12.4 % 11.5-15.0 NEUTROPHILS (test code = 1008) 67.5 % LYMPHOCYTES (test code = 1010) 24.5 % MONOCYTES (test code = 1011) 5.8 % EOSINOPHILS (test code = 1012) 0.7 % BASOPHILS (test code = 1013) 0.9 % IMMATURE GRANULOCYTES (test code = 1036) 0.6 % NUCLEATED RBCS (test code = 1065) 0.0 /100 WBC'S See_Comment [Automated messa ge] The system which generated this result transmitted reference range: 0.0. The reference range was not used to interpret this result as normal/abnormal. PLATELET COUNT (test code = 1015) 410 K/UL 130-400 H ABSOLUTE NEUTROPHILS (test code = 1066) 6.11 K/UL 1.50-7.50 ABSOLUTE LYMPHOCYTES (test code = 1067) 2.21 K/UL 1.00-4.00 ABSOLUTE MONOCYTES (test code = 1068) 0.52 K/UL 0.20-1.00 ABSOLUTE EOSINOPHILS (test code = 1040) 0.06 K/UL 0.00-0.50 ABSOLUTE BASOPHILS (test code = 1069) 0.08 K/UL 0.00-0.20 ABS IMMATURE GRANULOCYTES (test code = 1020) 0.05 K/UL 0.00-0.10 ABS NUCLEATED RBCS (test code = 32897) 0.00 K/UL 0.00-0.11 CBC W/AUTO [id number] 00:00:00* Test Item Value Reference Range Interpretation Comme nts WBC (test code = 1001) 9.0 K/UL RBC (test code = 1002) 4.52 M/UL HEMOGLOBIN (test code = 1003) 14.1 G/DL HEMATOCRIT (test code = 1004) 39.6 % MCV (test code = 1005) 87.6 fL MCH (test code = 1006) 31.2 PG MCHC (test code = 1007) 35.6 G/DL RDW (test code = 1038) 12.4 % NEUTROPHILS (test code = 1008) 67.5 % LYMPHOCYTES (test code = 1010) 24.5 % MONOCYTES (test code = 1011) 5.8 % EOSINOPHILS (test code = 1012) 0.7 % BASOPHILS (test code = 1013) 0.9 % IMMATURE GRANULOCYTES (test code = 1036) 0.6 % NUCLEATED RBCS (test code = 1065) 0.0 /100WBC'S PLATELET COUNT (test code = 1015) 410 K/UL ABSOLUTE NEUTROPHILS (test c ode = 1066) 6.11 K/UL ABSOLUTE LYMPHOCYTES (test c ode = 1067) 2.21 K/UL ABSOLUTE MONOCYTES (test cod e = 1068) 0.52 K/UL ABSOLUTE EOSINOPHILS (test c ode = 1040) 0.06 K/UL ABSOLUTE BASOPHILS (test cod e = 1069) 0.08 K/UL ABS IMMATURE GRANULOCYTES (t est code = 1020) 0.05 K/UL ABS NUCLEATED RBCS (test cod e = 66376) 0.00 K/UL Regan HedrickHEMOGLOBIN [id number] 00:00:00* Test Item Value Reference Range Interpretation Comme nts HEMOGLOBIN A1c (test code = 35022) 5.6 % Regan HedrickLIPID [id number] 00:00:00* Test Item Value Reference Range Interpretation Comme nts CHOLESTEROL (test code = 2210) 273 MG/DL TRIGLYCERIDES (test code = 2232) 117 MG/DL HDL CHOLESTEROL (test code = 2220) 84 MG/DL CALC LDL CHOL (test code = 2237) 166 MG/DL RISK RATIO LDL/HDL (test cod e = 2238) 1.98 RATIO Regan HedrickCOMPREHENSIVE METABOLIC [id number] 00:00:00* Test Item Value Reference Range Interpretation Comme nts GLUCOSE (test code = 2217) 90 MG/DL BUN (test code = 2208) 14 MG/DL CREATININE (test code = 2214) 0.57 MG/DL eGFR (2020 CKD-EPI) (test code = 51961) 103 ML/MIN/1.73 CALC BUN/CREAT (test code = 2235) 25 RATIO SODIUM (test code = 2231) 129 MEQ/L POTASSIUM (test code = 2228) 4.9 MEQ/L CHLORIDE (test code = 2215) 92 MEQ/L CARBON DIOXIDE (test code = 2206) 22 MEQ/L CALCIUM (test code = 2209) 10.2 MG/DL PROTEIN, TOTAL (test code = 2229) 7.2 G/DL ALBUMIN (test code = 2201) 4.6 G/DL CALC GLOBULIN (test code = 2240) 2.6 G/DL CALC A/G RATIO (test code = 2234) 1.8 RATIO BILIRUBIN, TOTAL (test code = 2207) 0.3 MG/DL ALKALINE PHOSPHATASE (test code = 2204) 128 U/L AST (test code = 2218) 21 U/L ALT (test code = 2219) 8 U/L Regan HedrickHIV AB/AG COMBO RFLX [id number] 00:00:00* Test Item Value Reference Range Interpretation Comme nts HIV 1/2 4TH GEN, RFLX CONF ( test code = 3514) NON-REACTIVE Regan HedrickACUTE HEPATITIS [id number] 00:00:00* Test Item Value Reference Range Interpretation Comme nts HEPATITIS A IgM (test code = 38159) NON-REACTIVE HEPATITIS B CORE IgM (test c ode = 4644) NON-REACTIVE HEPATITIS B SURF AG (test co de = 2739) NON-REACTIVE HEPATITIS C ANTIBODY (test c ode = 4668) NON-REACTIVE INTERPRETATION HEPATITIS A: (test code = 2552) (NOTE) INTERPRETATION HEPATITIS B: (test code = 54246) (NOTE) INTERPRETATION HEPATITIS C: (test code = 06658) (NOTE) Regan [id number] 00:00:00* Test Item Value Reference Range Interpretation Comme nts RPR RESULT (test code = 3501) NON-REACTIVE RPR TITER (test code = 3500) NOT INDIC. TITER Regan [id number] 00:00:00* Test Item Value Reference Range Interpretation Comme nts TSH, THIRD GENERATION (test code = 2821) 1.820 UIU/ML Regan HedrickCBC W/AUTO [id number] 00:00:00* Test Item Value Reference Range Interpretation Comme nts WBC (test code = 1001) 9.0 K/UL RBC (test code = 1002) 4.52 M/UL HEMOGLOBIN (test code = 1003) 14.1 G/DL HEMATOCRIT (test code = 1004) 39.6 % MCV (test code = 1005) 87.6 fL MCH (test code = 1006) 31.2 PG MCHC (test code = 1007) 35.6 G/DL RDW (test code = 1038) 12.4 % NEUTROPHILS (test code = 1008) 67.5 % LYMPHOCYTES (test code = 1010) 24.5 % MONOCYTES (test code = 1011) 5.8 % EOSINOPHILS (test code = 1012) 0.7 % BASOPHILS (test code = 1013) 0.9 % IMMATURE GRANULOCYTES (test code = 1036) 0.6 % NUCLEATED RBCS (test code = 1065) 0.0 /100WBC'S PLATELET COUNT (test code = 1015) 410 K/UL ABSOLUTE NEUTROPHILS (test c ode = 1066) 6.11 K/UL ABSOLUTE LYMPHOCYTES (test c ode = 1067) 2.21 K/UL ABSOLUTE MONOCYTES (test cod e = 1068) 0.52 K/UL ABSOLUTE EOSINOPHILS (test c ode = 1040) 0.06 K/UL ABSOLUTE BASOPHILS (test cod e = 1069) 0.08 K/UL ABS IMMATURE GRANULOCYTES (t est code = 1020) 0.05 K/UL ABS NUCLEATED RBCS (test cod e = 90760) 0.00 K/UL Regan HedrickHEMOGLOBIN [id number] 00:00:00* Test Item Value Reference Range Interpretation Comme nts HEMOGLOBIN A1c (test code = 73587) 5.6 % Regan HedrickLIPID [id number] 00:00:00* Test Item Value Reference Range Interpretation Comme nts CHOLESTEROL (test code = 2210) 273 MG/DL TRIGLYCERIDES (test code = 2232) 117 MG/DL HDL CHOLESTEROL (test code = 2220) 84 MG/DL CALC LDL CHOL (test code = 2237) 166 MG/DL RISK RATIO LDL/HDL (test cod e = 2238) 1.98 RATIO Regan HedrickCOMPREHENSIVE METABOLIC [id number] 00:00:00* Test Item Value Reference Range Interpretation Comme nts GLUCOSE (test code = 2217) 90 MG/DL BUN (test code = 2208) 14 MG/DL CREATININE (test code = 2214) 0.57 MG/DL eGFR (2020 CKD-EPI) (test code = 38138) 103 ML/MIN/1.73 CALC BUN/CREAT (test code = 2235) 25 RATIO SODIUM (test code = 2231) 129 MEQ/L POTASSIUM (test code = 2228) 4.9 MEQ/L CHLORIDE (test code = 2215) 92 MEQ/L CARBON DIOXIDE (test code = 2206) 22 MEQ/L CALCIUM (test code = 2209) 10.2 MG/DL PROTEIN, TOTAL (test code = 2229) 7.2 G/DL ALBUMIN (test code = 2201) 4.6 G/DL CALC GLOBULIN (test code = 2240) 2.6 G/DL CALC A/G RATIO (test code = 2234) 1.8 RATIO BILIRUBIN, TOTAL (test code = 2207) 0.3 MG/DL ALKALINE PHOSPHATASE (test code = 2204) 128 U/L AST (test code = 2218) 21 U/L ALT (test code = 2219) 8 U/L eRgan HedrickHIV AB/AG COMBO RFLX [id number] 00:00:00* Test Item Value Reference Range Interpretation Comme nts HIV 1/2 4TH GEN, RFLX CONF ( test code = 3514) NON-REACTIVE Regan HedrickACUTE HEPATITIS [id number] 00:00:00* Test Item Value Reference Range Interpretation Comme nts HEPATITIS A IgM (test code = 09081) NON-REACTIVE HEPATITIS B CORE IgM (test c ode = 4644) NON-REACTIVE HEPATITIS B SURF AG (test co de = 2739) NON-REACTIVE HEPATITIS C ANTIBODY (test c ode = 4675) NON-REACTIVE INTERPRETATION HEPATITIS A: (test code = 2552) (NOTE) INTERPRETATION HEPATITIS B: (test code = 27442) (NOTE) INTERPRETATION HEPATITIS C: (test code = 13755) (NOTE) Regan [id number] 00:00:00* Test Item Value Reference Range Interpretation Comme nts RPR RESULT (test code = 3501) NON-REACTIVE RPR TITER (test code = 3500) NOT INDIC. TITER Regan [id number] 00:00:00* Test Item Value Reference Range Interpretation Comme nts TSH, THIRD GENERATION (test code = 2821) 1.820 UIU/ML Regan HedrickCBC W/AUTO [id number] 00:00:00* Test Item Value Reference Range Interpretation Comme nts WBC (test code = 1001) 9.0 K/UL RBC (test code = 1002) 4.52 M/UL HEMOGLOBIN (test code = 1003) 14.1 G/DL HEMATOCRIT (test code = 1004) 39.6 % MCV (test code = 1005) 87.6 fL MCH (test code = 1006) 31.2 PG MCHC (test code = 1007) 35.6 G/DL RDW (test code = 1038) 12.4 % NEUTROPHILS (test code = 1008) 67.5 % LYMPHOCYTES (test code = 1010) 24.5 % MONOCYTES (test code = 1011) 5.8 % EOSINOPHILS (test code = 1012) 0.7 % BASOPHILS (test code = 1013) 0.9 % IMMATURE GRANULOCYTES (test code = 1036) 0.6 % NUCLEATED RBCS (test code = 1065) 0.0 /100WBC'S PLATELET COUNT (test code = 1015) 410 K/UL ABSOLUTE NEUTROPHILS (test c ode = 1066) 6.11 K/UL ABSOLUTE LYMPHOCYTES (test c ode = 1067) 2.21 K/UL ABSOLUTE MONOCYTES (test cod e = 1068) 0.52 K/UL ABSOLUTE EOSINOPHILS (test c ode = 1040) 0.06 K/UL ABSOLUTE BASOPHILS (test cod e = 1069) 0.08 K/UL ABS IMMATURE GRANULOCYTES (t est code = 1020) 0.05 K/UL ABS NUCLEATED RBCS (test cod e = 18436) 0.00 K/UL Regan HedrickHEMOGLOBIN [id number] 00:00:00* Test Item Value Reference Range Interpretation Comme nts HEMOGLOBIN A1c (test code = 89930) 5.6 % Regan HedrickLIPID [id number] 00:00:00* Test Item Value Reference Range Interpretation Comme nts CHOLESTEROL (test code = 2210) 273 MG/DL TRIGLYCERIDES (test code = 2232) 117 MG/DL HDL CHOLESTEROL (test code = 2220) 84 MG/DL CALC LDL CHOL (test code = 2237) 166 MG/DL RISK RATIO LDL/HDL (test cod e = 2238) 1.98 RATIO Regan HedrickCOMPREHENSIVE METABOLIC [id number] 00:00:00* Test Item Value Reference Range Interpretation Comme nts GLUCOSE (test code = 2217) 90 MG/DL BUN (test code = 2208) 14 MG/DL CREATININE (test code = 2214) 0.57 MG/DL eGFR (2020 CKD-EPI) (test code = 76832) 103 ML/MIN/1.73 CALC BUN/CREAT (test code = 2235) 25 RATIO SODIUM (test code = 2231) 129 MEQ/L POTASSIUM (test code = 2228) 4.9 MEQ/L CHLORIDE (test code = 2215) 92 MEQ/L CARBON DIOXIDE (test code = 2206) 22 MEQ/L CALCIUM (test code = 2209) 10.2 MG/DL PROTEIN, TOTAL (test code = 2229) 7.2 G/DL ALBUMIN (test code = 2201) 4.6 G/DL CALC GLOBULIN (test code = 2240) 2.6 G/DL CALC A/G RATIO (test code = 2234) 1.8 RATIO BILIRUBIN, TOTAL (test code = 2207) 0.3 MG/DL ALKALINE PHOSPHATASE (test code = 2204) 128 U/L AST (test code = 2218) 21 U/L ALT (test code = 2219) 8 U/L Regan HedrickHIV AB/AG COMBO RFLX [id number] 00:00:00* Test Item Value Reference Range Interpretation Comme nts HIV 1/2 4TH GEN, RFLX CONF ( test code = 3514) NON-REACTIVE Regan HedrickACUTE HEPATITIS [id number] 00:00:00* Test Item Value Reference Range Interpretation Comme nts HEPATITIS A IgM (test code = 55638) NON-REACTIVE HEPATITIS B CORE IgM (test c ode = 4644) NON-REACTIVE HEPATITIS B SURF AG (test co de = 2739) NON-REACTIVE HEPATITIS C ANTIBODY (test c ode = 4675) NON-REACTIVE INTERPRETATION HEPATITIS A: (test code = 2552) (NOTE) INTERPRETATION HEPATITIS B: (test code = 95658) (NOTE) INTERPRETATION HEPATITIS C: (test code = 31701) (NOTE) Regan [id number] 00:00:00* Test Item Value Reference Range Interpretation Comme nts RPR RESULT (test code = 3501) NON-REACTIVE RPR TITER (test code = 3500) NOT INDIC. TITER Regan [id number] 00:00:00* Test Item Value Reference Range Interpretation Comme nts TSH, THIRD GENERATION (test code = 2821) 1.820 UIU/ML Regan HedrickCBC W/AUTO [id number] 00:00:00* Test Item Value Reference Range Interpretation Comme nts WBC (test code = 1001) 9.0 K/UL RBC (test code = 1002) 4.52 M/UL HEMOGLOBIN (test code = 1003) 14.1 G/DL HEMATOCRIT (test code = 1004) 39.6 % MCV (test code = 1005) 87.6 fL MCH (test code = 1006) 31.2 PG MCHC (test code = 1007) 35.6 G/DL RDW (test code = 1038) 12.4 % NEUTROPHILS (test code = 1008) 67.5 % LYMPHOCYTES (test code = 1010) 24.5 % MONOCYTES (test code = 1011) 5.8 % EOSINOPHILS (test code = 1012) 0.7 % BASOPHILS (test code = 1013) 0.9 % IMMATURE GRANULOCYTES (test code = 1036) 0.6 % NUCLEATED RBCS (test code = 1065) 0.0 /100WBC'S PLATELET COUNT (test code = 1015) 410 K/UL ABSOLUTE NEUTROPHILS (test c ode = 1066) 6.11 K/UL ABSOLUTE LYMPHOCYTES (test c ode = 1067) 2.21 K/UL ABSOLUTE MONOCYTES (test cod e = 1068) 0.52 K/UL ABSOLUTE EOSINOPHILS (test c ode = 1040) 0.06 K/UL ABSOLUTE BASOPHILS (test cod e = 1069) 0.08 K/UL ABS IMMATURE GRANULOCYTES (t est code = 1020) 0.05 K/UL ABS NUCLEATED RBCS (test cod e = 03483) 0.00 K/UL Regan HedrickHEMOGLOBIN [id number] 00:00:00* Test Item Value Reference Range Interpretation Comme nts HEMOGLOBIN A1c (test code = 90173) 5.6 % Regan HedrickLIPID [id number] 00:00:00* Test Item Value Reference Range Interpretation Comme nts CHOLESTEROL (test code = 2210) 273 MG/DL TRIGLYCERIDES (test code = 2232) 117 MG/DL HDL CHOLESTEROL (test code = 2220) 84 MG/DL CALC LDL CHOL (test code = 2237) 166 MG/DL RISK RATIO LDL/HDL (test cod e = 2238) 1.98 RATIO Regan HedrickCOMPREHENSIVE METABOLIC [id number] 00:00:00* Test Item Value Reference Range Interpretation Comme nts GLUCOSE (test code = 2217) 90 MG/DL BUN (test code = 2208) 14 MG/DL CREATININE (test code = 2214) 0.57 MG/DL eGFR (2020 CKD-EPI) (test code = 18635) 103 ML/MIN/1.73 CALC BUN/CREAT (test code = 2235) 25 RATIO SODIUM (test code = 2231) 129 MEQ/L POTASSIUM (test code = 2228) 4.9 MEQ/L CHLORIDE (test code = 2215) 92 MEQ/L CARBON DIOXIDE (test code = 2206) 22 MEQ/L CALCIUM (test code = 2209) 10.2 MG/DL PROTEIN, TOTAL (test code = 2229) 7.2 G/DL ALBUMIN (test code = 2201) 4.6 G/DL CALC GLOBULIN (test code = 2240) 2.6 G/DL CALC A/G RATIO (test code = 2234) 1.8 RATIO BILIRUBIN, TOTAL (test code = 2207) 0.3 MG/DL ALKALINE PHOSPHATASE (test code = 2204) 128 U/L AST (test code = 2218) 21 U/L ALT (test code = 2219) 8 U/L Regan HedrickHIV AB/AG COMBO RFLX [id number] 00:00:00* Test Item Value Reference Range Interpretation Comme nts HIV 1/2 4TH GEN, RFLX CONF ( test code = 3514) NON-REACTIVE Regan HedrickACUTE HEPATITIS [id number] 00:00:00* Test Item Value Reference Range Interpretation Comme nts HEPATITIS A IgM (test code = 24999) NON-REACTIVE HEPATITIS B CORE IgM (test c ode = 4644) NON-REACTIVE HEPATITIS B SURF AG (test co de = 6459) NON-REACTIVE HEPATITIS C ANTIBODY (test c ode = 4663) NON-REACTIVE INTERPRETATION HEPATITIS A: (test code = 2552) (NOTE) INTERPRETATION HEPATITIS B: (test code = 11158) (NOTE) INTERPRETATION HEPATITIS C: (test code = 04797) (NOTE) Regan [id number] 00:00:00* Test Item Value Reference Range Interpretation Comme nts RPR RESULT (test code = 3501) NON-REACTIVE RPR TITER (test code = 3500) NOT INDIC. TITER Regan [id number] 00:00:00* Test Item Value Reference Range Interpretation Comme nts TSH, THIRD GENERATION (test code = 2821) 1.820 UIU/ML Regan HedrickCBC W/AUTO [id number] 00:00:00* Test Item Value Reference Range Interpretation Comme nts WBC (test code = 1001) 9.0 K/UL RBC (test code = 1002) 4.52 M/UL HEMOGLOBIN (test code = 1003) 14.1 G/DL HEMATOCRIT (test code = 1004) 39.6 % MCV (test code = 1005) 87.6 fL MCH (test code = 1006) 31.2 PG MCHC (test code = 1007) 35.6 G/DL RDW (test code = 1038) 12.4 % NEUTROPHILS (test code = 1008) 67.5 % LYMPHOCYTES (test code = 1010) 24.5 % MONOCYTES (test code = 1011) 5.8 % EOSINOPHILS (test code = 1012) 0.7 % BASOPHILS (test code = 1013) 0.9 % IMMATURE GRANULOCYTES (test code = 1036) 0.6 % NUCLEATED RBCS (test code = 1065) 0.0 /100WBC'S PLATELET COUNT (test code = 1015) 410 K/UL ABSOLUTE NEUTROPHILS (test c ode = 1066) 6.11 K/UL ABSOLUTE LYMPHOCYTES (test c ode = 1067) 2.21 K/UL ABSOLUTE MONOCYTES (test cod e = 1068) 0.52 K/UL ABSOLUTE EOSINOPHILS (test c ode = 1040) 0.06 K/UL ABSOLUTE BASOPHILS (test cod e = 1069) 0.08 K/UL ABS IMMATURE GRANULOCYTES (t est code = 1020) 0.05 K/UL ABS NUCLEATED RBCS (test cod e = 35290) 0.00 K/UL Regan HedrickHEMOGLOBIN [id number] 00:00:00* Test Item Value Reference Range Interpretation Comme nts HEMOGLOBIN A1c (test code = 69527) 5.6 % Regan HedrickLIPID [id number] 00:00:00* Test Item Value Reference Range Interpretation Comme nts CHOLESTEROL (test code = 2210) 273 MG/DL TRIGLYCERIDES (test code = 2232) 117 MG/DL HDL CHOLESTEROL (test code = 2220) 84 MG/DL CALC LDL CHOL (test code = 2237) 166 MG/DL RISK RATIO LDL/HDL (test cod e = 2238) 1.98 RATIO Regan HedrickCOMPREHENSIVE METABOLIC [id number] 00:00:00* Test Item Value Reference Range Interpretation Comme nts GLUCOSE (test code = 2217) 90 MG/DL BUN (test code = 2208) 14 MG/DL CREATININE (test code = 2214) 0.57 MG/DL eGFR (2020 CKD-EPI) (test code = 71312) 103 ML/MIN/1.73 CALC BUN/CREAT (test code = 2235) 25 RATIO SODIUM (test code = 2231) 129 MEQ/L POTASSIUM (test code = 2228) 4.9 MEQ/L CHLORIDE (test code = 2215) 92 MEQ/L CARBON DIOXIDE (test code = 2206) 22 MEQ/L CALCIUM (test code = 2209) 10.2 MG/DL PROTEIN, TOTAL (test code = 2229) 7.2 G/DL ALBUMIN (test code = 2201) 4.6 G/DL CALC GLOBULIN (test code = 2240) 2.6 G/DL CALC A/G RATIO (test code = 2234) 1.8 RATIO BILIRUBIN, TOTAL (test code = 2207) 0.3 MG/DL ALKALINE PHOSPHATASE (test code = 2204) 128 U/L AST (test code = 2218) 21 U/L ALT (test code = 2219) 8 U/L Regan HedrickHIV AB/AG COMBO RFLX [id number] 00:00:00* Test Item Value Reference Range Interpretation Comme nts HIV 1/2 4TH GEN, RFLX CONF ( test code = 3514) NON-REACTIVE Regan HedrickACUTE HEPATITIS [id number] 00:00:00* Test Item Value Reference Range Interpretation Comme nts HEPATITIS A IgM (test code = 94589) NON-REACTIVE HEPATITIS B CORE IgM (test c ode = 4644) NON-REACTIVE HEPATITIS B SURF AG (test co de = 2739) NON-REACTIVE HEPATITIS C ANTIBODY (test c ode = 4684) NON-REACTIVE INTERPRETATION HEPATITIS A: (test code = 2552) (NOTE) INTERPRETATION HEPATITIS B: (test code = 19020) (NOTE) INTERPRETATION HEPATITIS C: (test code = 19696) (NOTE) Rgean [id number] 00:00:00* Test Item Value Reference Range Interpretation Comme nts RPR RESULT (test code = 3501) NON-REACTIVE RPR TITER (test code = 3500) NOT INDIC. TITER Regan [id number] 00:00:00* Test Item Value Reference Range Interpretation Comme nts TSH, THIRD GENERATION (test code = 2821) 1.820 UIU/ML Regan HedrickCBC W/AUTO [id number] 00:00:00* Test Item Value Reference Range Interpretation Comme nts WBC (test code = 1001) 9.0 K/UL RBC (test code = 1002) 4.52 M/UL HEMOGLOBIN (test code = 1003) 14.1 G/DL HEMATOCRIT (test code = 1004) 39.6 % MCV (test code = 1005) 87.6 fL MCH (test code = 1006) 31.2 PG MCHC (test code = 1007) 35.6 G/DL RDW (test code = 1038) 12.4 % NEUTROPHILS (test code = 1008) 67.5 % LYMPHOCYTES (test code = 1010) 24.5 % MONOCYTES (test code = 1011) 5.8 % EOSINOPHILS (test code = 1012) 0.7 % BASOPHILS (test code = 1013) 0.9 % IMMATURE GRANULOCYTES (test code = 1036) 0.6 % NUCLEATED RBCS (test code = 1065) 0.0 /100WBC'S PLATELET COUNT (test code = 1015) 410 K/UL ABSOLUTE NEUTROPHILS (test c ode = 1066) 6.11 K/UL ABSOLUTE LYMPHOCYTES (test c ode = 1067) 2.21 K/UL ABSOLUTE MONOCYTES (test cod e = 1068) 0.52 K/UL ABSOLUTE EOSINOPHILS (test c ode = 1040) 0.06 K/UL ABSOLUTE BASOPHILS (test cod e = 1069) 0.08 K/UL ABS IMMATURE GRANULOCYTES (t est code = 1020) 0.05 K/UL ABS NUCLEATED RBCS (test cod e = 51410) 0.00 K/UL Regan HedrickHEMOGLOBIN [id number] 00:00:00* Test Item Value Reference Range Interpretation Comme nts HEMOGLOBIN A1c (test code = 99978) 5.6 % Regan HedrickLIPID [id number] 00:00:00* Test Item Value Reference Range Interpretation Comme nts CHOLESTEROL (test code = 2210) 273 MG/DL TRIGLYCERIDES (test code = 2232) 117 MG/DL HDL CHOLESTEROL (test code = 2220) 84 MG/DL CALC LDL CHOL (test code = 2237) 166 MG/DL RISK RATIO LDL/HDL (test cod e = 2238) 1.98 RATIO Regan HedrickCOMPREHENSIVE METABOLIC [id number] 00:00:00* Test Item Value Reference Range Interpretation Comme nts GLUCOSE (test code = 2217) 90 MG/DL BUN (test code = 2208) 14 MG/DL CREATININE (test code = 2214) 0.57 MG/DL eGFR (2020 CKD-EPI) (test code = 75283) 103 ML/MIN/1.73 CALC BUN/CREAT (test code = 2235) 25 RATIO SODIUM (test code = 2231) 129 MEQ/L POTASSIUM (test code = 2228) 4.9 MEQ/L CHLORIDE (test code = 2215) 92 MEQ/L CARBON DIOXIDE (test code = 2206) 22 MEQ/L CALCIUM (test code = 2209) 10.2 MG/DL PROTEIN, TOTAL (test code = 2229) 7.2 G/DL ALBUMIN (test code = 2201) 4.6 G/DL CALC GLOBULIN (test code = 2240) 2.6 G/DL CALC A/G RATIO (test code = 2234) 1.8 RATIO BILIRUBIN, TOTAL (test code = 2207) 0.3 MG/DL ALKALINE PHOSPHATASE (test code = 2204) 128 U/L AST (test code = 2218) 21 U/L ALT (test code = 2219) 8 U/L Regan HedrikcHIV AB/AG COMBO RFLX [id number] 00:00:00* Test Item Value Reference Range Interpretation Comme nts HIV 1/2 4TH GEN, RFLX CONF ( test code = 3514) NON-REACTIVE Regan HedrickACUTE HEPATITIS [id number] 00:00:00* Test Item Value Reference Range Interpretation Comme nts HEPATITIS A IgM (test code = 92203) NON-REACTIVE HEPATITIS B CORE IgM (test c ode = 2179) NON-REACTIVE HEPATITIS B SURF AG (test co de = 6149) NON-REACTIVE HEPATITIS C ANTIBODY (test c ode = 4604) NON-REACTIVE INTERPRETATION HEPATITIS A: (test code = 2552) (NOTE) INTERPRETATION HEPATITIS B: (test code = 15577) (NOTE) INTERPRETATION HEPATITIS C: (test code = 79598) (NOTE) Regan [id number] 00:00:00* Test Item Value Reference Range Interpretation Comme nts RPR RESULT (test code = 3501) NON-REACTIVE RPR TITER (test code = 3500) NOT INDIC. TITER Regan [id number] 00:00:00* Test Item Value Reference Range Interpretation Comme nts TSH, THIRD GENERATION (test code = 2821) 1.820 UIU/ML Regan HedrickCBC W/AUTO [id number] 00:00:00* Test Item Value Reference Range Interpretation Comme nts WBC (test code = 1001) 9.0 K/UL RBC (test code = 1002) 4.52 M/UL HEMOGLOBIN (test code = 1003) 14.1 G/DL HEMATOCRIT (test code = 1004) 39.6 % MCV (test code = 1005) 87.6 fL MCH (test code = 1006) 31.2 PG MCHC (test code = 1007) 35.6 G/DL RDW (test code = 1038) 12.4 % NEUTROPHILS (test code = 1008) 67.5 % LYMPHOCYTES (test code = 1010) 24.5 % MONOCYTES (test code = 1011) 5.8 % EOSINOPHILS (test code = 1012) 0.7 % BASOPHILS (test code = 1013) 0.9 % IMMATURE GRANULOCYTES (test code = 1036) 0.6 % NUCLEATED RBCS (test code = 1065) 0.0 /100WBC'S PLATELET COUNT (test code = 1015) 410 K/UL ABSOLUTE NEUTROPHILS (test c ode = 1066) 6.11 K/UL ABSOLUTE LYMPHOCYTES (test c ode = 1067) 2.21 K/UL ABSOLUTE MONOCYTES (test cod e = 1068) 0.52 K/UL ABSOLUTE EOSINOPHILS (test c ode = 1040) 0.06 K/UL ABSOLUTE BASOPHILS (test cod e = 1069) 0.08 K/UL ABS IMMATURE GRANULOCYTES (t est code = 1020) 0.05 K/UL ABS NUCLEATED RBCS (test cod e = 63780) 0.00 K/UL Regan HedrickHEMOGLOBIN [id number] 00:00:00* Test Item Value Reference Range Interpretation Comme nts HEMOGLOBIN A1c (test code = 29971) 5.6 % Regan HedrickLIPID [id number] 00:00:00* Test Item Value Reference Range Interpretation Comme nts CHOLESTEROL (test code = 2210) 273 MG/DL TRIGLYCERIDES (test code = 2232) 117 MG/DL HDL CHOLESTEROL (test code = 2220) 84 MG/DL CALC LDL CHOL (test code = 2237) 166 MG/DL RISK RATIO LDL/HDL (test cod e = 2238) 1.98 RATIO Regan HedrickCOMPREHENSIVE METABOLIC [id number] 00:00:00* Test Item Value Reference Range Interpretation Comme nts GLUCOSE (test code = 2217) 90 MG/DL BUN (test code = 2208) 14 MG/DL CREATININE (test code = 2214) 0.57 MG/DL eGFR (2020 CKD-EPI) (test code = 10370) 103 ML/MIN/1.73 CALC BUN/CREAT (test code = 2235) 25 RATIO SODIUM (test code = 2231) 129 MEQ/L POTASSIUM (test code = 2228) 4.9 MEQ/L CHLORIDE (test code = 2215) 92 MEQ/L CARBON DIOXIDE (test code = 2206) 22 MEQ/L CALCIUM (test code = 2209) 10.2 MG/DL PROTEIN, TOTAL (test code = 2229) 7.2 G/DL ALBUMIN (test code = 2201) 4.6 G/DL CALC GLOBULIN (test code = 2240) 2.6 G/DL CALC A/G RATIO (test code = 2234) 1.8 RATIO BILIRUBIN, TOTAL (test code = 2207) 0.3 MG/DL ALKALINE PHOSPHATASE (test code = 2204) 128 U/L AST (test code = 2218) 21 U/L ALT (test code = 2219) 8 U/L Regan HedrickHIV AB/AG COMBO RFLX [id number] 00:00:00* Test Item Value Reference Range Interpretation Comme nts HIV 1/2 4TH GEN, RFLX CONF ( test code = 3514) NON-REACTIVE Regan HedrickACUTE HEPATITIS [id number] 00:00:00* Test Item Value Reference Range Interpretation Comme nts HEPATITIS A IgM (test code = 14516) NON-REACTIVE HEPATITIS B CORE IgM (test c ode = 4644) NON-REACTIVE HEPATITIS B SURF AG (test co de = 9982) NON-REACTIVE HEPATITIS C ANTIBODY (test c ode = 4675) NON-REACTIVE INTERPRETATION HEPATITIS A: (test code = 2552) (NOTE) INTERPRETATION HEPATITIS B: (test code = 62649) (NOTE) INTERPRETATION HEPATITIS C: (test code = 04396) (NOTE) Regan [id number] 00:00:00* Test Item Value Reference Range Interpretation Comme nts RPR RESULT (test code = 3501) NON-REACTIVE RPR TITER (test code = 3500) NOT INDIC. TITER Regan [id number] 00:00:00* Test Item Value Reference Range Interpretation Comme nts TSH, THIRD GENERATION (test code = 2821) 1.820 UIU/ML Regan Hedrick History and Physical Notes Date/Time Note Provider Source 2023-11-06 15:56:42 Endoscopy H & P Age: [age] year old Sex: female ASA Class: III Indication: EGD for evaluation for Dysphagia, dark stools Colonoscopy for positive cologuard, Fhx of early colon cancer "Today's Visit 09/19/23 Interval History: - LCV 06/20/23. At that time, had +cologuard ( and family history of CRC in father <60yo. Also with reported dark stools, (pepto bismol use) and dysphagia. 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 Had appt with data recovery planner in [place] scheduled after our last appointment. Clearance forms faxed to those clinics and informed patient to obtain clearance and instruction on holding plavix at that visit. CBC ordered but not collected. Started on PPI daily. - Clearance form from data recovery planner on 09/11/23 clearing patient for scope after she got TTE and stress test which were normal. Per their recommendations, okay to hold plavix and ASA" FHx: CRC in father (50s) Previous abdominal surgeries: Hysterectomy Last antiplatelet/anitgocaulant use: Plavix last used 7 days ago Last Endo: None No results found for: "HGB" There are no current results on file for these tests and/or test for 1 year. There are no current results on file for these tests and/or test for 1 year. There are no current results on file for these tests and/or test for 1 year. Covid status: Present status: asymptomatic No past medical history on file. Family history of Colon Cancer/Polyps: yes No current facility-administered medications for this encounter. Current Outpatient Medications Medication Sig Dispense Refill peg-electrolyte soln [id number] -5.86 gram solution Please follow [facility] prep instructions for colonoscopy. 4000 mL 0 amLODIPine 5 mg tablet TAKE ONE (1) TABLET(S) BY MOUTH DAILY FOR 2 WEEKS, INCREASE TO TWO TABLETS DAILY. ARIPiprazole 20 mg tablet Take 1 tablet by mouth in the morning. methocarbamoL 750 mg tablet Take 1 tablet by mouth 4 (four) times daily. pantoprazole 40 mg EC tablet Take 1 tablet by mouth in the morning. 90 tablet 0 clopidogreL 75 mg tablet Take 1 tablet by mouth. cyclobenzaprine 10 mg tablet Take 1 tablet by mouth. gabapentin 300 mg capsule 1 tablet in am, 1 tablet at noon, 1 tablet at 5pm and 2 tablets at bedtime isosorbide dinitrate 30 mg tablet Take 1 tablet by mouth in the morning. losartan 100 mg tablet Take 1 tablet by mouth every morning. meloxicam 7.5 mg tablet Take 1 tablet by mouth in the morning. venlafaxine XR 75 mg 24 hr capsule Take 1 capsule by mouth in the morning. No Known Allergies Social History Socioeconomic History Marital status: Tobacco Use Smoking status: Some Days Types: Cigarettes Smokeless tobacco: Never Substance and Sexual Activity Alcohol use: Yes Comment: Social Drug use: Never Mental Status: alert, oriented x3 Chest: Nonlabored breathing, speaks in complete sentences without pauses Cardiovascular: regular rate and rythmn Abdomen: Soft, nontender, nondistended Spleen Tip: non-palpable Hepatomegaly: no Mass: not present Tenderness: no Impression and Plan: Proceed with EGD for evaluation for Dysphagia, dark stools Colonoscopy for positive cologuard, Fhx of early colon cancer Education provided to the patient about the procedure. Benefits, risks, alternatives, and likelihood of achieving patient's goals of care discussed. Risks discussed including but not limited to aspiration, infection, bleeding, perforation, missed polyps/lesions, failure to obtain a diagnosis, failure to complete the procedure, cardiovascular complications such as AZ, stroke, arrhythmia, and . Informed consent obtained/verified. Essie Tian MD [facility] [employer] Gastroenterology [facility]
[2024-09-21] MEDS ORDERED: BUPIVACAINE 0.5% PF 10 ML VIAL ONE (01:49)
[2024-09-21] MEDS ORDERED: LIDOCAINE 1% MPF 5 ML VIAL ONE (01:49)
--- NOTE | 2024-09-21 03:05 | ER ---
Nurse's Notes [facility] Name: Merlyn Fry Age: 64 yrs Sex: Female : 1960 Arrival Date: 09/20/2024 Time: 23:21 Bed 20 Private MD: Diagnosis: Cutaneous abscess of right hand-right fourth finger;Cellulitis of finger-left thumb Presentation: 09/20 23:50 Chief complaint: Patient states: I am having swelling in my right ring finger and left jb4 thumb. 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 Coronavirus screen: At this time, the client does not indicate any symptoms associated with coronavirus-19. Ebola Screen: No symptoms or risks identified at this time. Initial Sepsis Screen: Does the patient meet any 2 criteria? No. Patient's initial sepsis screen is negative. Does the patient have a suspected source of infection? No. Patient's initial sepsis screen is negative. Risk Assessment: Do you want to hurt yourself or someone else? Patient reports no desire to harm self or others. Onset of symptoms was September 20, 2024. Transition of care: patient was not received from another setting of care. 23:50 Method Of Arrival: Ambulatory jb4 23:50 Acuity: MAGEN 4 jb4 Triage Assessment: 23:53 General: Appears in no apparent distress. comfortable, Behavior is calm, cooperative, jb4 appropriate for age. Pain: Complains of pain in dorsal aspect of distal phalanx of right ring finger, dorsal aspect of middle phalanx of right ring finger, dorsal aspect of distal phalanx of left thumb and dorsal aspect of proximal phalanx of left thumb Pain does not radiate. Pain currently is 8 out of 10 on a pain scale. Quality of pain is described as throbbing. Neuro: Level of Consciousness is awake, alert, obeys commands, Oriented to person, place, time, situation. Cardiovascular: Patient's skin is warm and dry. Respiratory: Airway is patent Respiratory effort is even, unlabored, Respiratory pattern is regular, symmetrical. Derm: Skin is intact, Skin is pink, warm \T\ dry. Musculoskeletal: Circulation, motion, and sensation intact. Range of motion: intact in all extremities, Swelling present in dorsal aspect of distal phalanx of right ring finger, dorsal aspect of middle phalanx of right ring finger, dorsal aspect of distal phalanx of left thumb and dorsal aspect of proximal phalanx of left thumb. Historical: - Allergies: 23:52 No Known Allergies; jb4 - PMHx: 23:52 CVA; e coli; Hypertension; Myocardial infarction; jb4 23:53 TIA; jb4 - PSHx: 23:52 back sx x 2; heart stent; hysterectomy; jb4 - Immunization history:: Adult Immunizations up to date. - Infectious Disease History:: Denies. - Social history:: Smoking status: Patient reports the use of cigarette tobacco products, denies chronic smoking, but will smoke occasionally. Screenin/10 03:35 [facility] ED Fall Risk Assessment (Adult) History of falling in the last 3 months, ha1 including since admission No falls in past 3 months (0 pts) Confusion or Disorientation No (0 pts) Intoxicated or Sedated No (0 pts) Impaired Gait No (0 pts) Mobility Assist Device Used No (0 pt) Altered Elimination No (0 pt) Score/Fall Risk Level 0 - 2 = Low Risk Oriented to surroundings, Maintained a safe environment, Educated pt \T\ family on fall prevention, incl call for assistance when getting out of bed, Hourly rounding (assess needs \T\ fall precautionary measures) done. Abuse screen: Denies threats or abuse. Denies injuries from another. Nutritional screening: No deficits noted. Tuberculosis screening: No symptoms or risk factors identified. Assessment: 01:50 General: Appears comfortable, Behavior is calm, cooperative. Pain: Complains of pain in ha1 dorsal aspect of middle phalanx of right ring finger Pain currently is 7 out of 10 on a pain scale. Quality of pain is described as aching. Neuro: Level of Consciousness is awake, alert, obeys commands, Oriented to person, place, time, situation. Cardiovascular: Capillary refill < 3 seconds Patient's skin is warm and dry. Respiratory: Airway is patent Respiratory effort is even, unlabored, Respiratory pattern is regular, symmetrical. 01:50 Musculoskeletal: Swelling present in dorsal aspect of middle phalanx of right ring ha1 finger. 02:30 Reassessment: Patient and/or family updated on plan of care and expected duration. Pain ha1 level reassessed. Patient is alert, oriented x 3, equal unlabored respirations, skin warm/dry/pink. Vital Signs: 09/20 23:50 BP 140 / 93; Pulse 69; Resp 16; Temp 97(TE); Pulse Ox 99% on R/A; Weight 58.51 kg (R); jb4 Height 4 ft. 11 in. (R); Pain 8/; 09/21 02:00 BP 128 / 85; Pulse 67; Resp 15 S; Pulse Ox 99% on R/A; ha1 03:42 BP 123 / 79; Pulse 64; Resp 16 S; Temp 97.9(T); Pulse Ox 99% on R/A; ha1 09/20 23:50 Body Mass Index 26.05 (58.51 kg, 149.86 cm) jb4 09/20 23:50 Pain Scale: Adult jb4 ED Course: 09/20 23:23 Patient arrived in ED. jj6 23:24 Brian Godinez PA is PHCP. cp 23:24 Brian Arreola MD is Attending Physician. cp 23:52 Triage completed. jb4 23:53 Arm band placed on right wrist. jb4 Administered Medications: 09/21 02:30 Drug: Lidocaine Infiltration (1 %) 5 ml 5 ml Infiltration once; to bedside {Note: ha1 administered by Brian Godinez care provider .} Volume: 5 ml; Route: Infiltration; 03:00 Follow up: Response: No adverse reaction ha1 02:30 Drug: Bupivacaine Infiltration (0.5 %) 10 ml 10 ml Infiltration once {Note: ha1 administered by Brian Godinez care provider .} Volume: 10 ml; Route: Infiltration; 03:00 Follow up: Response: No adverse reaction ha1 03:28 Drug: Doxycycline PO 100 mg PO once Route: PO; ha1 03:43 Follow up: Response: No adverse reaction ha1 03:28 Drug: Trimethoprim-Sulfamethoxazole PO (160 mg-800 mg (DS) 1 tablet PO once Route: PO; ha1 03:43 Follow up: Response: No adverse reaction ha1 Medication: 03:35 VIS not applicable for this client. ha1 Outcome: 03:04 Discharge ordered by . cp 03:44 Patient left the ED. ha1 Signatures: Brian Godinez PA PA Michael Barney RN RN jb4 Jennifer Stringer j6 Marlen Carty RN RN ha1
--- NOTE | 2024-09-21 03:05 | EDPHYS ---
Physician Documentation [facility] Name: Merlyn Fry Age: 64 yrs Sex: Female : 1960 Arrival Date: 09/20/2024 Time: 23:21 Bed 20 Private MD: ED Physician Brian Arreola HPI: 09/20 23:50 This 64 yrs old Female presents to ER via Ambulatory with complaints of FINGER PAIN AND cp SWELLING. 23:50 The patient or guardian reports pain, swelling, tenderness. The complaints affect the cp distal phalanx of right fourth finger and distal phalanx of left thumb. Context: resulted from an unknown cause, reports removing hang nail. Onset: The symptoms/episode began/occurred gradually, and became worse today. Associated signs and symptoms: Pertinent negatives: cyanosis distally, decreased sensation distally, fever, known injury. Severity of symptoms: in the emergency department the symptoms are unchanged, despite home interventions. Historical: - Allergies: 23:52 No Known Allergies; jb4 - PMHx: 23:52 CVA; e coli; Hypertension; Myocardial infarction; jb4 23:53 TIA; jb4 - PSHx: 23:52 back sx x 2; heart stent; hysterectomy; jb4 - Immunization history:: Adult Immunizations up to date. - Infectious Disease History:: Denies. - Social history:: Smoking status: Patient reports the use of cigarette tobacco products, denies chronic smoking, but will smoke occasionally. ROS: 23:55 Constitutional: Negative for body aches, chills, fever, poor PO intake, cp 23:55 Eyes: Negative for injury, pain, redness, and discharge, cp 23:55 Respiratory: Negative for cough, shortness of breath, wheezing, 23:55 Abdomen/GI: Negative for abdominal pain, nausea, vomiting, and diarrhea, 23:55 MS/extremity: Positive for pain, swelling, tenderness, of the right fourth finger and left thumb, Negative for injury or acute deformity, decreased range of motion, paresthesias, 23:55 Neuro: Negative for altered mental status, dizziness, headache, weakness, 23:55 All other systems are negative, Exam: 23:59 Constitutional: The patient appears in no acute distress, alert, awake, non-toxic, well cp developed, well nourished, uncomfortable, 23:59 Head/Face: Normocephalic, atraumatic. cp 23:59 Chest/axilla: Inspection: normal, 23:59 Cardiovascular: Rate: normal, 23:59 Respiratory: the patient does not display signs of respiratory distress, Respirations: normal, no use of accessory muscles, no retractions, 23:59 Abdomen/GI: Inspection: abdomen appears normal, 23:59 Musculoskeletal/extremity: Extremities: noted in the distal phalanx of right fourth finger: pain, swelling, tenderness noted of nail margins and fat pad of digit, abscess noted radial side of nail, noted in the distal phalanx of left thumb: swelling, tenderness, Vital Signs: 23:50 BP 140 / 93; Pulse 69; Resp 16; Temp 97(TE); Pulse Ox 99% on R/A; Weight 58.51 kg (R); jb4 Height 4 ft. 11 in. (R); Pain 8/10; 02 02:00 BP 128 / 85; Pulse 67; Resp 15 S; Pulse Ox 99% on R/A; ha1 03:42 BP 123 / 79; Pulse 64; Resp 16 S; Temp 97.9(T); Pulse Ox 99% on R/A; ha1 02/ 23:50 Body Mass Index 26.05 (58.51 kg, 149.86 cm) jb4 02/ 23:50 Pain Scale: Adult jb4 Procedures: 03:00 I \T\ D: Incision and drainage was performed for an abscess of the radial side of right cp fourth finger nail Prepped with Betadine, Anesthetized with 5 ccs of mixture 1% lidocaine w/o epi and 0.5% marcaine. Incised with #11 blade. Drained small amount purulent fluid. bloody fluid. Dressing: sterile 4x4 gauze, the patient tolerated the procedure well. MDM: 09/20 23:47 Medical Screening Exam initiated cp 09/21 00:00 Differential diagnosis: contusion, felon, paronychia, cellulitis. 03:03 Data reviewed: vital signs, nurses notes, and as a result, I will discharge patient. 03:03 I considered the following discharge prescriptions or medication management in the emergency department Medications were administered in the Emergency Department. See MAR. Counseling: I had a detailed discussion with the patient and/or guardian regarding the historical points, exam findings, and any diagnostic results supporting the discharge/admit diagnosis, to return to the emergency department if symptoms worsen or persist or if there are any questions or concerns that arise at home. Response to treatment: the patient's symptoms have markedly improved after treatment, and as a result, I will discharge patient. 09/20 23:48 Order name: Cali\T\D Setup; Complete Time: 01:41 cp Administered Medications: 02:30 Drug: Lidocaine Infiltration (1 %) 5 ml 5 ml Infiltration once; to bedside {Note: ha1 administered by [facility] care provider .} Volume: 5 ml; Route: Infiltration; 03:00 Follow up: Response: No adverse reaction ha1 02:30 Drug: Bupivacaine Infiltration (0.5 %) 10 ml 10 ml Infiltration once {Note: ha1 administered by [facility] provider .} Volume: 10 ml; Route: Infiltration; 03:00 Follow up: Response: No adverse reaction ha1 03:28 Drug: Doxycycline PO 100 mg PO once Route: PO; ha1 03:43 Follow up: Response: No adverse reaction ha1 03:28 Drug: Trimethoprim-Sulfamethoxazole PO (160 mg-800 mg (DS) 1 tablet PO once Route: PO; ha1 03:43 Follow up: Response: No adverse reaction ha1 Disposition Summary: 09/21/24 03:04 Discharge Ordered Notes: Location: Home cp Problem: new cp Symptoms: have improved cp Condition: Stable cp Diagnosis - Cutaneous abscess of right hand - right fourth finger cp - Cellulitis of finger - left thumb cp Followup: cp - With: Private Physician - When: 2 - 3 days - Reason: Recheck today's complaints Discharge Instructions: - Discharge Summary Sheet cp - Skin Abscess cp - Cellulitis, Adult cp - Incision and Drainage cp - Incision and Drainage, Care After cp Forms: - Medication Reconciliation Form cp - Antibiotic Education cp - Prescription Opioid Use cp - Patient Portal Instructions cp - Leadership Thank You Letter cp Prescriptions: - Ibuprofen 800 mg Oral Tablet - take 1 tablet ORAL route every 8 hours As needed take with food; 30 tablet; cp Refills: 0, Product Selection Permitted - Doxycycline Hyclate 100 mg Oral Tablet - take 1 tablet ORAL route every 12 hours; 20 tablet; Refills: 0, Product cp Selection Permitted - Bactrim DS 800-160 mg Oral Tablet - take 1 tablet ORAL route every 12 hours for 10 days; 20 tablet; Refills: 0, cp Product Selection Permitted Signatures: Brian Godinez PA PA cp Bryson, James, RN RN jb4 Marlen Carty RN RN ha1
[2024-09-21] MEDS ORDERED: SMZ./TMP. 800/160 MG TABLET ONE (03:25)
[2024-09-21] MEDS ORDERED: DOXYCYCLINE 100 MG CAP PO ONE (03:26)
[2024-09-21 03:49] VITALS: O2SAT 99
[2024-09-21 03:52] VITALS: BP 123/79; TEMP 97.9
== END 2024-09-21 03:44 | disposition home or self-care (01) ==
LOC: ER 23:21
PROC: 0H9FXZZ Drainage of Right Hand Skin, External Approach (ICD-10-PCS; principal; 2024-09-21)
DX: L02.511 Cutaneous abscess of right hand (principal); L03.012 Cellulitis of left finger; F17.210 Nicotine dependence, cigarettes, uncomplicated; Z95.818 Presence of other cardiac implants and grafts
CPT/HCPCS: 10060; J2003; 99283